=== PATIENT | female | born 1985 | race Two or more races ===

== ENCOUNTER 2016-12-31 12:43 | Inpatient (IN) | payer OTHER ==
[~2016-12-31] VITALS: Ht 175.3 cm; Wt 57.6 kg
--- NOTE | 2016-12-31 12:53 | NUR ---
PT REC'D TO ER VIA EMS PT HAD BEEN GETTING DIALYSIS BP 180/104 129 18 98 TEMP 99.3 TRACH TO NECK . AWAITING EVALUATION BY ER PROVIDER.
[2016-12-31 13:47] LABS: BASOPHILS # (AUTO) 0.1 /CMM (0.0-0.2); BASOPHILS % (AUTO) 0.3 % (0.0-2.0); EOSINOPHILS % (AUTO) 0.1 % (0.0-6.0); HEMATOCRIT 33 % (33-45); HEMOGLOBIN 10.7 g/dL (11.5-14.8); LYMPHOCYTES % (AUTO) 4.9 % (20.0-44.0); MEAN CORPUSCULAR HEMOGLOBIN 33 PG (26.0-33.0); MEAN CORPUSCULAR HGB CONC 33 g/dl (31.0-36.0); MEAN CORPUSCULAR VOLUME 101 fL (82-100); MONOCYTES # (AUTO) 1.1 /CMM (0.1-1.30); MONOCYTES % (AUTO) 5.4 % (2.0-12.0); NEUTROPHILS # (AUTO) 17.7 /CMM (1.8-8.9); NEUTROPHILS % (AUTO) 89.3 % (43.0-81.0); PLATELET COUNT (AUTO) 552 /CMM (150-450); RDW COEFFICIENT OF VARIATION 16.4 (11.5-15.0); RED BLOOD CELL COUNT(AUTO) 3.25 MIL/uL (4.0-5.2); WHITE BLOOD COUNT (AUTO) 19.9 K/uL (4.3-11.0)
--- NOTE | 2016-12-31 13:53 | NUR ---
CALLED NURSING SUP. FOR TELE BED
[2016-12-31 14:02] LABS: INR 0.97 (0.87-1.13); PROTHROMBIN TIME 10.4 SECS (9.5-12.7)
[2016-12-31] MEDS ORDERED: DOCU50LI GT (14:06)
[2016-12-31] MEDS ORDERED: CARV25TA2 GT (14:06)
[2016-12-31] MEDS ORDERED: MINO2.5T2 GT (14:06)
[2016-12-31] MEDS ORDERED: FOLI0.8T2 GT (14:06)
[2016-12-31] MEDS ORDERED: POLY17PO4 GT (14:06)
[2016-12-31] MEDS ORDERED: HEPA10009 SQ (14:06)
[2016-12-31] MEDS ORDERED: OMEP40CA37 GT (14:06)
[2016-12-31] MEDS ORDERED: CLON0.3P TD (14:06)
[2016-12-31] MEDS ORDERED: FERR300L GT (14:06)
[2016-12-31] MEDS ORDERED: INSU100I19 SQ (14:06)
[2016-12-31] MEDS ORDERED: ERGO50003 GT (14:06)
[2016-12-31] MEDS ORDERED: HYDR-3976 GT (14:06)
[2016-12-31] MEDS ORDERED: LOSA100T15 GT (14:06)
[2016-12-31] MEDS ORDERED: LIOT25TA9 GT (14:06)
[2016-12-31] MEDS ORDERED: CLON0.5T GT (14:06)
[2016-12-31] MEDS ORDERED: NIFE20CA GT (14:06)
[2016-12-31] MEDS ORDERED: HYDR100T27 GT (14:06)
[2016-12-31] MEDS ORDERED: CLON0.1T GT ×2 (14:06)
[2016-12-31] MEDS ORDERED: FOLI1TAB16 GT (14:06)
[2016-12-31] MEDS ORDERED: BLOO-668 IN (14:06)
[2016-12-31] MEDS ORDERED: ACET650S26 GT (14:06)
[2016-12-31 14:08] LABS: LACTIC ACID 0.7 mmol/L (0.4-2.0)
[2016-12-31] MEDS ORDERED: NUTR100037 GT (14:09)
--- NOTE | 2016-12-31 14:09 | NUR ---
LABS DRAWN SENT TO LAB IV [id number] WRIST ANS 18G RT WRIST TOLERATED WELL TRACH SUCTIONED 100SATS PT QUIET AND CALM VSS
[2016-12-31 14:14] LABS: BILIRUBIN,DIRECT 0.1 mg/dL (0.0-0.2); BILIRUBIN,TOTAL 0.5 mg/dL (0.2-1.0); CALCIUM, SERUM 12.5 mg/dL (8.5-10.1); CREATININE 4.5 mg/dL (0.6-1.3); POTASSIUM 4.1 mmol/L (3.5-5.1); TOTAL PROTEIN, SERUM 8.3 g/dL (6.4-8.2)
[2016-12-31] MEDS ORDERED: CLONIDINE HCL 0.1 MG TABLET GT ONE (14:30)
[2016-12-31] MEDS ORDERED: CLONIDINE HCL 0.1 MG TABLET ONE (14:48)
[2016-12-31 15:03] LABS: BAND % (MANUAL) 1 % (0.0-5.0); LYMPHOCYTES % (MANUAL) 4 % (16-48); MONOCYTES % (MANUAL) 10 % (0-11.0); NEUTROPHILS % (MANUAL) 84 (42-76); REACTIVE LYMPHOCYTES 1 % (0-0)
[2016-12-31 15:04] LABS: ANISOCYTOSIS 1+; PLATELET ESTIMATE INCRE
--- NOTE | 2016-12-31 15:09 | NUR ---
CALLED TUNG TO READ XRAY
[2016-12-31] MEDS ORDERED: VANCOMYCIN 1 GM in IV D5W 250 ML IV ONE (15:30)
[2016-12-31] MEDS ORDERED: AZITHROMYCIN 500 MG in IV D5W 250 ML IV ONE (15:30)
[2016-12-31] MEDS ORDERED: ACETAMINOPHEN ES 500 MG TABLET GT ONE (15:30)
[2016-12-31] MEDS ORDERED: CEFTRIAXONE 1GM BAG (ER ONLY) 50 ML IV ONE (15:30)
[2016-12-31] MEDS ORDERED: IV NS 0.9% 1,000 ML BAG IV ONE (15:30)
[2016-12-31] MEDS ORDERED: ACETAMINOPHEN ES 500 MG TABLET ONE (15:38)
[2016-12-31] MEDS ORDERED: IV NS 0.9% 1,000 ML ONE (15:39)
[2016-12-31] MEDS ORDERED: IV SET PRIMARY PUMP SET 1 EA INFUS.SET MC ONE ×2 (15:39→16:05)
[2016-12-31 15:47] LABS: APPEARANCE,URINE Turbid (CLEAR); BILIRUBIN,URINE Negative (NEGATIVE); BLOOD, URINE Small Ery/uL (NEGATIVE); COLOR,URINE Yellow (YELLOW); KETONES,URINE Negative (NEGATIVE); LEUKOCYTE ESTERASE ,URINE Large (NEGATIVE); NITRITE, URINE Negative (NEGATIVE); PH,URINE 5.5 (5.0-8.0); PROTEIN,URINE >=300 mg/dl (NEGATIVE); UGLUCOSE Negative (NEGATIVE); UROBILINOGEN,URINE 0.2 EU/dL (0.2)
--- NOTE | 2016-12-31 15:49 | NUR ---
IV ND SND ROCEPHIN I GR IVPB AND TYENOL 1000MG GT GIVEN PER MD ORDER
[2016-12-31 15:59] LABS: ADD URINE CULTURE YES; BACTERIA,URINE Moderate /HPF (None Seen); SQUAMOUS EPITHELIAL CELL,UR Moderate /HPF (None Seen); WBC,URINE TOO NUMEROUS TO COUN /HPF (0-3)
--- NOTE | 2016-12-31 16:23 | NUR ---
WENDY BERGMAN FOR TRANSFER IV MEDS TO THE FLOOR CALLED REOPRT TO MADELINE RN AND RT TO FOLLOW
[2016-12-31] MEDS ORDERED: MAGNESIUM HYDROXIDE 30 ML UDC PO PRN (16:30)
[2016-12-31] MEDS ORDERED: MAG HYDROX/AL HYDROX/SIMETH 30 ML UDC PO PRN (16:30)
[2016-12-31] MEDS ORDERED: ONDANSETRON HCL/PF 4 MG/2 ML VIAL IVP PRN (16:30)
[2016-12-31] MEDS ORDERED: ENOXAPARIN SODIUM 40 MG/0.4 ML DISP.SYRIN SQ SCH (16:30)
[2016-12-31] MEDS: CLONIDINE HCL 0.3 MG/24H PTWK 1 EA PATCH TD SCH (17:00)
--- NOTE | 2016-12-31 17:15 | NUR ---
MELVIN RN NOTE Admitted 31y/o F from ER, alert to self. With trache to O2 mask @ 4LPM, O2 sat 100%. With GT intact and patent. With 2RW PIVs intact. With RSC HD cath intact. Placed on bed on comfortable position. Skin assessment done, noted with sacral and both heels decub, taken pictures and attached to chart. Obtained order for wound care consult. SBP 140's at this time. Spoke with mother via phone and verified code status as Full code.
[2016-12-31 17:33] VITALS: BP 148/87
[2016-12-31] MEDS: DOCUSATE SODIUM LIQ 100 MG/10 ML UDC GT SCH (17:58)
[2016-12-31] MEDS: NIFEdipine (10MG) 10 MG CAPSULE GT SCH (17:58)
--- NOTE | 2016-12-31 17:59 | NUR ---
MELVIN RN NOTE Clonidine patch on her, dated for today.
[2016-12-31] MEDS ORDERED: Z GUARD REMEDY 2 OZ OINT TP PRN (19:00)
--- NOTE | 2016-12-31 19:51 | NUR ---
rn:td: pt received in bed resting comfortably. with trach mask in place. pending tf from pharmacy. aspiration/ fall precautions in place. will continue to monitor closely.
[2016-12-31 20:00] VITALS: BP 149/76
[2016-12-31] MEDS: RENAL NOVASOURCE 1,000 ML BOTTLE GT PRN (21:18)
[2016-12-31] MEDS: CARVEDILOL 12.5 MG TABLET GT SCH (21:18)
[2016-12-31] MEDS: CLONIDINE HCL 0.1 MG TABLET GT SCH (21:19)
[2016-12-31] MEDS: clonazePAM 0.5 MG TABLET GT SCH (21:19)
[2016-12-31] MEDS: hydrALAZINE HCL 50 MG TABLET GT SCH (21:19)
[2016-12-31] MEDS: LIOTHYRONINE SODIUM (25 MCG) 25 MCG TABLET GT SCH (21:19)
[2016-12-31] MEDS: HEPARIN SODIUM, PORCINE 5000 UNITS/1 ML VIAL SQ SCH (21:20)
[2016-12-31] MEDS: INSULIN DETEMIR 100 UNIT/ML CARTRIDGE SQ SCH (21:32)
--- NOTE | 2016-12-31 21:59 | NUR ---
rn:td: called md regarding bs 390 upon finger stick before giving Levemir. new orders to start accucheck q6h. orders carried out.
[2016-12-31] MEDS: INSULIN REGULAR, HUMAN 100 UNIT/ML 3 ML VIAL SQ PRN (23:09)
[2016-12-31] MEDS: BLOOD SUGAR DIAGNOSTIC 1 EACH STRIP IN SCH (23:09)
[2017-01-01] VITALS: BP 156/89
[2017-01-01 04:00] VITALS: BP 140/92
[2017-01-01] MEDS: hydrALAZINE HCL 50 MG TABLET GT SCH ×3 (05:35→20:30)
[2017-01-01] MEDS: HEPARIN SODIUM, PORCINE 5000 UNITS/1 ML VIAL SQ SCH ×3 (05:39→20:28)
[2017-01-01] MEDS: BLOOD SUGAR DIAGNOSTIC 1 EACH STRIP IN SCH ×3 (05:40→17:50)
[2017-01-01] MEDS: INSULIN REGULAR, HUMAN 100 UNIT/ML 3 ML VIAL SQ PRN ×2 (05:40→17:53)
[2017-01-01 08:00] VITALS: BP 160/90
--- NOTE | 2017-01-01 08:00 | NUR ---
MELVIN RN NOTE: RECEIVED PATIENT IN BED ALERT TO SELF ABLE TO NOD HEAD AND ANSWER QUESTIONS. NOTED WITH TRACH PORTEX 6 ON COOL AEROSOL 5L 28%. NO DISTRESS NOTED. SR ON MONITOR. SBP NOTED TO BE 160;S. PATIENT INCONTINENT NOTED WITH DIAPER. GTUBE PATENT AND INTACT ON NOVASOURCE AT 40ML/HR NO RESIDUAL NOTED. R SUBCLAVIAN HD CATH NOTED, PIV'S NOTED PATENT AND INTACT. AFEBRILE. NOTED WITH WOUNDS. PATIENT KEPT CLEAN AND DRY, TURNED AND REPOSITIONED AND EXTREMITIES OFFLOADED. SAFETY MAINTAINED. ONGOING MONITORING
[2017-01-01] MEDS: PANTOPRAZOLE 40 MG TABLET.DR PO SCH (08:30)
[2017-01-01] MEDS: LIOTHYRONINE SODIUM (25 MCG) 25 MCG TABLET GT SCH ×2 (08:31→20:28)
[2017-01-01] MEDS: FERROUS SULFATE UDC 300 MG/5 ML UDC GT SCH (08:31)
[2017-01-01] MEDS: DOCUSATE SODIUM LIQ 100 MG/10 ML UDC GT SCH ×2 (08:31→17:48)
[2017-01-01] MEDS: MINOXIDIL (2.5MG) 2.5 MG TABLET GT SCH (08:32)
[2017-01-01] MEDS: FOLIC ACID 1 MG TABLET GT SCH (08:32)
[2017-01-01] MEDS: CLONIDINE HCL 0.1 MG TABLET GT SCH ×2 (08:33→20:30)
[2017-01-01] MEDS: NIFEdipine (10MG) 10 MG CAPSULE GT SCH ×3 (08:33→17:00)
[2017-01-01] MEDS: LOSARTAN POTASSIUM 50 MG TABLET GT SCH (08:33)
[2017-01-01] MEDS: POLYETHYLENE GLYCOL 3350 17 GM POWD.PACK GT SCH (08:34)
[2017-01-01] MEDS: clonazePAM 0.5 MG TABLET GT SCH ×2 (08:34→20:27)
[2017-01-01] MEDS: VIT B CMPLX 3/FA/VIT C/BIOTIN 1 TAB TABLET GT SCH (08:34)
[2017-01-01] MEDS: CARVEDILOL 12.5 MG TABLET GT SCH ×2 (08:34→20:31)
[2017-01-01 08:40] LABS: BASOPHILS % (AUTO) 0.3 % (0.0-2.0); EOSINOPHILS # (AUTO) 0.6 /CMM (0.0-0.7); EOSINOPHILS % (AUTO) 4.5 % (0.0-6.0); HEMATOCRIT 28 % (33-45); HEMOGLOBIN 9.3 g/dL (11.5-14.8); LYMPHOCYTES # (AUTO) 1.4 /CMM (0.8-4.8); LYMPHOCYTES % (AUTO) 10.5 % (20.0-44.0); MEAN CORPUSCULAR HEMOGLOBIN 33 PG (26.0-33.0); MEAN CORPUSCULAR HGB CONC 33 g/dl (31.0-36.0); MEAN CORPUSCULAR VOLUME 100 fL (82-100); MONOCYTES # (AUTO) 1.2 /CMM (0.1-1.30); MONOCYTES % (AUTO) 8.4 % (2.0-12.0); NEUTROPHILS # (AUTO) 10.6 /CMM (1.8-8.9); NEUTROPHILS % (AUTO) 76.3 % (43.0-81.0); PLATELET COUNT (AUTO) 493 /CMM (150-450); RDW COEFFICIENT OF VARIATION 16.6 (11.5-15.0); RED BLOOD CELL COUNT(AUTO) 2.82 MIL/uL (4.0-5.2); WHITE BLOOD COUNT (AUTO) 13.9 K/uL (4.3-11.0)
[2017-01-01 09:10] LABS: ALBUMIN 2.4 g/dL (3.4-5.0); BILIRUBIN,TOTAL 0.3 mg/dL (0.2-1.0); CALCIUM, SERUM 11.5 mg/dL (8.5-10.1); CREATININE 4.4 mg/dL (0.6-1.3); MAGNESIUM 2.6 mg/dL (1.8-2.4); PHOSPHORUS 4.5 mg/dL (2.5-4.9); POTASSIUM 3.4 mmol/L (3.5-5.1); TOTAL PROTEIN, SERUM 7.2 g/dL (6.4-8.2)
--- NOTE | 2017-01-01 10:40 | NUR ---
MELVIN RN NOTE: HD STARTED. VS STABLE ONGOING MONITORING
[2017-01-01 12:00] VITALS: BP 116/73
[2017-01-01] MEDS: EPOETIN ALFA (10,000 UNIT) 10,000 UNIT/ML VIAL IV SCH (12:50)
[2017-01-01] MEDS: HYDROCODONE/APAP 5/325MG 1 EACH TABLET PO PRN (12:50)
--- NOTE | 2017-01-01 13:37 | NUR ---
RT NOTES PT GOT SUCTIONED AND INNER CANULA CHANGED. PT HAD THICK MODERATE YELLOW SECRETION. NO RESPIRATORY DISTRESS WAS NOTED. PT WAS ON DIALYSIS.
--- NOTE | 2017-01-01 14:00 | NUR ---
MELVIN RN NOTE: HD COMPLETE 2700ML NOTED OUT, VS STABLE BP 108/60, HR 86 TEMP 97.5 NO DISTRESS NOTED. PATIENT TOLERATED HD WELL.
--- NOTE | 2017-01-01 14:30 | NUR ---
MELVIN RN NOTE: RECEIVE CRITICAL LAB OF MRSA +, ELY GUERRERO MADE AWARE. PATIENT PLACED ON ISOLATION FOR MRSA NARES. ONGOING MONITORING
[2017-01-01] MEDS ORDERED: IV NS 0.9% 250 ML IV ONE (15:34)
[2017-01-01] MEDS ORDERED: IV SET PRIMARY PUMP SET 1 EA INFUS.SET MC ONE (15:34)
[2017-01-01] MEDS: CEFTRIAXONE 1 G in IV D5W 50 ML IV SCH (15:34)
[2017-01-01] MEDS ORDERED: SECONDARY IV SET 1 EA INFUS.SET MC ONE (15:34)
[2017-01-01] MEDS: Z GUARD REMEDY 2 OZ OINT TP PRN (15:34)
[2017-01-01 16:00] VITALS: BP 129/71
[2017-01-01] MEDS: MORPHINE SULFATE INJ 2 MG/ML DISP.SYRIN IV PRN (17:50)
--- NOTE | 2017-01-01 18:53 | NUR ---
MELVIN RN NOTE: PATIENT KEPT CLEAN AND DRY. TURNED AND REPOSITIONED AND EXTREMITIES OFFLOADED. ALL CARE RENDERED. VSS, PAIN MANAGEMENT PROVIDED. WILL ENDORSE FOR CONTINUITY OF CARE.
[2017-01-01 20:00] VITALS: BP 124/67
[2017-01-01] MEDS: MUPIROCIN OINT 2% 22 GM TUBE SCH (20:26)
[2017-01-01] MEDS: INSULIN DETEMIR 100 UNIT/ML CARTRIDGE SQ SCH (22:57)
[2017-01-02] VITALS: BP 136/77
[2017-01-02] MEDS: BLOOD SUGAR DIAGNOSTIC 1 EACH STRIP IN SCH ×5 (00:29→23:28)
[2017-01-02] MEDS: INSULIN REGULAR, HUMAN 100 UNIT/ML 3 ML VIAL SQ PRN ×4 (00:31→23:23)
[2017-01-02 04:00] VITALS: BP 135/74
[2017-01-02] MEDS: HEPARIN SODIUM, PORCINE 5000 UNITS/1 ML VIAL SQ SCH ×3 (04:38→21:17)
[2017-01-02] MEDS: hydrALAZINE HCL 50 MG TABLET GT SCH ×3 (05:56→21:16)
[2017-01-02] MEDS: MORPHINE SULFATE INJ 2 MG/ML DISP.SYRIN IV PRN ×3 (06:34→23:28)
[2017-01-02] MEDS: RENAL NOVASOURCE 1,000 ML BOTTLE GT PRN (06:37)
[2017-01-02] MEDS: DEXTROSE 50%-WATER 50 ML DISP.SYRIN IV PRN (06:46)
[2017-01-02 08:00] VITALS: BP 149/92
[2017-01-02] MEDS: POLYETHYLENE GLYCOL 3350 17 GM POWD.PACK GT SCH (08:24)
[2017-01-02] MEDS: FERROUS SULFATE UDC 300 MG/5 ML UDC GT SCH (08:24)
[2017-01-02] MEDS: MUPIROCIN OINT 2% 22 GM TUBE SCH ×2 (08:24→21:16)
[2017-01-02] MEDS: Z GUARD REMEDY 2 OZ OINT TP PRN (08:24)
[2017-01-02] MEDS: DOCUSATE SODIUM LIQ 100 MG/10 ML UDC GT SCH ×2 (08:24→17:40)
[2017-01-02] MEDS: LOSARTAN POTASSIUM 50 MG TABLET GT SCH (08:25)
[2017-01-02] MEDS: MINOXIDIL (2.5MG) 2.5 MG TABLET GT SCH (08:26)
[2017-01-02] MEDS: CLONIDINE HCL 0.1 MG TABLET GT SCH ×2 (08:26→21:15)
[2017-01-02] MEDS: PANTOPRAZOLE 40 MG TABLET.DR PO SCH (08:26)
[2017-01-02] MEDS: clonazePAM 0.5 MG TABLET GT SCH ×2 (08:27→21:14)
[2017-01-02] MEDS: VIT B CMPLX 3/FA/VIT C/BIOTIN 1 TAB TABLET GT SCH (08:27)
[2017-01-02] MEDS: NIFEdipine (10MG) 10 MG CAPSULE GT SCH ×3 (08:27→17:40)
[2017-01-02] MEDS: FOLIC ACID 1 MG TABLET GT SCH (08:27)
[2017-01-02] MEDS: LIOTHYRONINE SODIUM (25 MCG) 25 MCG TABLET GT SCH ×2 (08:27→21:15)
[2017-01-02] MEDS: CARVEDILOL 12.5 MG TABLET GT SCH ×2 (08:27→21:15)
--- NOTE | 2017-01-02 11:10 | NUR ---
WOUND CARE CONSULT: PT PRESENTS WITH MULTIPLE WOUNDS, PRESENT ON ADMISSION INCLUDING STAGE II ULCER TO SACRUM AND TO LEFT HEEL, RT HEEL INTACT DTI NOTED WITH CALLUS. PT ON OLMAN ISOFLEX LOW AIRLOSS BED. ALL SKIN AND WOUND RECOMMENDATIONS DISCUSSED WITH NURSING STAFF. IN AGREEMENT WITH PLAN OF CARE. Addendum: 01/02/17 at 1112 by TATE SMITH WNDNU Amended: Links added.
[2017-01-02 12:00] VITALS: BP 124/72
[2017-01-02 13:18] LABS: BASOPHILS % (AUTO) 0.4 % (0.0-2.0); EOSINOPHILS # (AUTO) 0.5 /CMM (0.0-0.7); EOSINOPHILS % (AUTO) 4.7 % (0.0-6.0); HEMATOCRIT 29 % (33-45); HEMOGLOBIN 9.6 g/dL (11.5-14.8); LYMPHOCYTES # (AUTO) 1.3 /CMM (0.8-4.8); LYMPHOCYTES % (AUTO) 12.3 % (20.0-44.0); MEAN CORPUSCULAR HEMOGLOBIN 32 PG (26.0-33.0); MEAN CORPUSCULAR HGB CONC 33 g/dl (31.0-36.0); MEAN CORPUSCULAR VOLUME 97 fL (82-100); MONOCYTES # (AUTO) 0.5 /CMM (0.1-1.30); MONOCYTES % (AUTO) 5.3 % (2.0-12.0); NEUTROPHILS # (AUTO) 8.1 /CMM (1.8-8.9); NEUTROPHILS % (AUTO) 77.3 % (43.0-81.0); PLATELET COUNT (AUTO) 447 /CMM (150-450); RDW COEFFICIENT OF VARIATION 16.9 (11.5-15.0); RED BLOOD CELL COUNT(AUTO) 2.96 MIL/uL (4.0-5.2); WHITE BLOOD COUNT (AUTO) 10.4 K/uL (4.3-11.0)
[2017-01-02 14:44] LABS: CALCIUM, SERUM 11.4 mg/dL (8.5-10.1); CREATININE 3.6 mg/dL (0.6-1.3); MAGNESIUM 2.4 mg/dL (1.8-2.4); PHOSPHORUS 4.6 mg/dL (2.5-4.9); POTASSIUM 4.2 mmol/L (3.5-5.1)
[2017-01-02] MEDS: EPOETIN ALFA (10,000 UNIT) 10,000 UNIT/ML VIAL IV SCH (15:32)
[2017-01-02] MEDS: CEFTRIAXONE 1 G in IV D5W 50 ML IV SCH (15:32)
[2017-01-02 16:00] VITALS: BP 144/90
[2017-01-02 20:00] VITALS: BP 149/89
--- NOTE | 2017-01-02 20:44 | NUR ---
received pt from day shift, alert, follows commands, SR, on T tube, fio2 28%, sat well, lungs partially congested, no edema, GT to feeding tolerates well, HD pt anuric, v/s stable, no pain, pt turned and repositioned.
[2017-01-02] MEDS: INSULIN DETEMIR 100 UNIT/ML CARTRIDGE SQ SCH (21:35)
[2017-01-03] VITALS: BP 152/85
[2017-01-03 04:00] VITALS: BP 148/94
--- NOTE | 2017-01-03 04:18 | NUR ---
pt is resting in the bed, no acute distress overnight, v/s stable, no pain, pt cleaned, changed and repositioned q2hrs.
[2017-01-03] MEDS: hydrALAZINE HCL 50 MG TABLET GT SCH ×3 (05:06→20:27)
[2017-01-03] MEDS: HEPARIN SODIUM, PORCINE 5000 UNITS/1 ML VIAL SQ SCH ×3 (05:07→20:30)
[2017-01-03] MEDS ORDERED: IV NS 0.9% 250 ML IV ONE (05:15)
[2017-01-03] MEDS: DEXTROSE 50%-WATER 50 ML DISP.SYRIN IV PRN (05:18)
[2017-01-03] MEDS: BLOOD SUGAR DIAGNOSTIC 1 EACH STRIP IN SCH ×3 (05:19→18:06)
--- NOTE | 2017-01-03 05:25 | NUR ---
BS 39 D50 given
--- NOTE | 2017-01-03 06:00 | NUR ---
BS recheck 104
[2017-01-03] MEDS: MORPHINE SULFATE INJ 2 MG/ML DISP.SYRIN IV PRN ×3 (06:07→19:47)
[2017-01-03 07:18] LABS: BASOPHILS % (AUTO) 0.4 % (0.0-2.0); EOSINOPHILS # (AUTO) 0.6 /CMM (0.0-0.7); EOSINOPHILS % (AUTO) 5.9 % (0.0-6.0); HEMATOCRIT 30 % (33-45); HEMOGLOBIN 9.7 g/dL (11.5-14.8); LYMPHOCYTES # (AUTO) 1.3 /CMM (0.8-4.8); MEAN CORPUSCULAR HEMOGLOBIN 33 PG (26.0-33.0); MEAN CORPUSCULAR HGB CONC 33 g/dl (31.0-36.0); MEAN CORPUSCULAR VOLUME 100 fL (82-100); MONOCYTES % (AUTO) 10.2 % (2.0-12.0); NEUTROPHILS # (AUTO) 6.7 /CMM (1.8-8.9); NEUTROPHILS % (AUTO) 69.5 % (43.0-81.0); PLATELET COUNT (AUTO) 490 /CMM (150-450); RDW COEFFICIENT OF VARIATION 15.6 (11.5-15.0); RED BLOOD CELL COUNT(AUTO) 2.95 MIL/uL (4.0-5.2); WHITE BLOOD COUNT (AUTO) 9.6 K/uL (4.3-11.0)
[2017-01-03 07:45] LABS: ALBUMIN 2.5 g/dL (3.4-5.0); BILIRUBIN,TOTAL 0.4 mg/dL (0.2-1.0); CALCIUM, SERUM 11.5 mg/dL (8.5-10.1); CREATININE 3.9 mg/dL (0.6-1.3); MAGNESIUM 2.5 mg/dL (1.8-2.4); PHOSPHORUS 4.6 mg/dL (2.5-4.9); POTASSIUM 3.4 mmol/L (3.5-5.1); TOTAL PROTEIN, SERUM 7.4 g/dL (6.4-8.2)
[2017-01-03 08:00] VITALS: BP 153/93
[2017-01-03] MEDS: DOCUSATE SODIUM LIQ 100 MG/10 ML UDC GT SCH ×2 (08:45→16:09)
[2017-01-03] MEDS: POLYETHYLENE GLYCOL 3350 17 GM POWD.PACK GT SCH (08:45)
[2017-01-03] MEDS: VIT B CMPLX 3/FA/VIT C/BIOTIN 1 TAB TABLET GT SCH (08:45)
[2017-01-03] MEDS: PANTOPRAZOLE 40 MG TABLET.DR PO SCH (08:45)
[2017-01-03] MEDS: FOLIC ACID 1 MG TABLET GT SCH (08:45)
[2017-01-03] MEDS: FERROUS SULFATE UDC 300 MG/5 ML UDC GT SCH (08:45)
[2017-01-03] MEDS: clonazePAM 0.5 MG TABLET GT SCH ×2 (08:46→20:27)
[2017-01-03] MEDS: MUPIROCIN OINT 2% 22 GM TUBE SCH ×2 (08:46→20:28)
[2017-01-03] MEDS: LIOTHYRONINE SODIUM (25 MCG) 25 MCG TABLET GT SCH ×2 (08:46→20:27)
[2017-01-03] MEDS: CLONIDINE HCL 0.1 MG TABLET GT SCH ×2 (09:00→20:27)
[2017-01-03] MEDS: LOSARTAN POTASSIUM 50 MG TABLET GT SCH (09:00)
[2017-01-03] MEDS: NIFEdipine (10MG) 10 MG CAPSULE GT SCH ×3 (09:00→16:10)
[2017-01-03] MEDS: CARVEDILOL 12.5 MG TABLET GT SCH ×2 (09:00→20:27)
[2017-01-03] MEDS: MINOXIDIL (2.5MG) 2.5 MG TABLET GT SCH (09:00)
--- NOTE | 2017-01-03 09:08 | NUR ---
non-admin BP medication d/t hemodialysis at this time.
[2017-01-03] MEDS: EPOETIN ALFA (10,000 UNIT) 10,000 UNIT/ML VIAL IV SCH (10:21)
[2017-01-03 12:00] VITALS: BP 123/79
[2017-01-03] MEDS: CEFTRIAXONE 1 G in IV D5W 50 ML IV SCH (15:47)
[2017-01-03 16:00] VITALS: BP 139/89
[2017-01-03] MEDS: ACETAMINOPHEN 325 MG TABLET PO PRN (16:11)
[2017-01-03] MEDS: INSULIN REGULAR, HUMAN 100 UNIT/ML 3 ML VIAL SQ PRN (18:09)
--- NOTE | 2017-01-03 19:28 | NUR ---
closing note patient remained stable this shift. breathing, vs and LOC at baseline and stable. episodes of agitation- consolable, pain medication effective. repositioned patient and provided prn ADL care. no injury. no new skin breakdown compared to photos in chart. tracheostomy patent, suctioned prn, wound care rendered. sly midline patent, dressing cdi. isolation precautions observed. discussed plan of care. call light in reach.
--- NOTE | 2017-01-03 19:30 | NUR ---
MELVIN RN INITIAL NOTE RECEIVED REPORT FROM DANNIE FLOR. PT IN BED. A/A/O X2. PT IS SCREAMING, MOUTHS SHE IS IN PAIN. WILL MEDICATE FOR PAIN. LUNG SOUNDS MINIMAL RHONCHI. TRACH PRESENT, COOL AEROSOL. BOWEL SOUNDS PRESENT WITH GT INTACT. FEEDING RUNNING, 5 CC RESIDUAL. PULSES PRESENT IN ALL EXTREMITIES. IV PATENT AND INTACT. DIALYSIS ACCESS PATENT AND INTACT. BED IN LOW LOCKED POSITION. CALL LIGHT WITHIN REACH. WILL CONTINUE TO MONITOR.
[2017-01-03 20:00] VITALS: BP 163/106
[2017-01-03] MEDS: INSULIN DETEMIR 100 UNIT/ML CARTRIDGE SQ SCH (21:40)
[2017-01-03] MEDS: HYDROCODONE/APAP 5/325MG 1 EACH TABLET PO PRN (22:57)
[2017-01-04] VITALS: BP 153/91
[2017-01-04] MEDS: BLOOD SUGAR DIAGNOSTIC 1 EACH STRIP IN SCH ×5 (00:03→23:29)
[2017-01-04] MEDS: INSULIN REGULAR, HUMAN 100 UNIT/ML 3 ML VIAL SQ PRN ×5 (00:04→23:32)
[2017-01-04] MEDS: MORPHINE SULFATE INJ 2 MG/ML DISP.SYRIN IV PRN ×3 (01:04→16:56)
[2017-01-04 04:00] VITALS: BP 134/86
[2017-01-04] MEDS ORDERED: IV NS 0.9% 250 ML IV ONE (05:25)
[2017-01-04] MEDS: hydrALAZINE HCL 50 MG TABLET GT SCH ×3 (05:29→21:34)
[2017-01-04] MEDS: HEPARIN SODIUM, PORCINE 5000 UNITS/1 ML VIAL SQ SCH ×3 (05:30→21:37)
--- NOTE | 2017-01-04 06:10 | NUR ---
MELVIN RN PT WAS SCREAMING, NO CHANGES THROUGHOUT THE SHIFT. WALKED INTO PTS ROOM AND PT HAD DECANNULATED SELF. MICHELLE RN PLACED THE OBTURATOR. RT CALLED. PT SATING 98% ON RA. WILL CONTINUE TO MONITOR PT.
[2017-01-04] MEDS: HYDROCODONE/APAP 5/325MG 1 EACH TABLET PO PRN ×2 (06:40→21:33)
--- NOTE | 2017-01-04 06:50 | NUR ---
RN NOTES: PATIENT TRIED TO PULL OUT TRACH PER REPORT OF PRIMARY RN DEVAN. OBTAINED ORDERS FOR BILATERAL SOFT WRIST RESTRAINTS. TO CONTINUOUSLY MONITORED PT.
--- NOTE | 2017-01-04 07:15 | NUR ---
RN INITIAL NOTE PT RECEIVED IN BED, RESTING COMFORTABLY. AWAKE, ALERT, MOUTHS WORDS. SINUS RHYTHM ON TELE MONITOR. RESPIRATIONS EVEN AND UNLABORED. PT IS ON COOL AEROSOL T-PIECE. SATING WELL. NO S/S OF RESPIRATORY DISTRESS OR SOB. SKIN IS WARM AND DRY TO TOUCH. RIGHT UPPER MIDLINE IV SITE FLUSHED, PATENT. DRESSING C/D/I. GTUBE PATENT. NOVASOURCE RUNNING AT 40ML/HR. PT TOLERATING FEEDING WELL. SAFETY PRECAUTIONS IMPLEMENTED. BED IN LOCKED, LOW POSITION WITH TWO SIDE RAILS UP. CALL LIGHT WITHIN REACH. WILL MONITOR FREQUENTLY.
[2017-01-04 07:49] LABS: CALCIUM, SERUM 11.5 mg/dL (8.5-10.1); CREATININE 3.2 mg/dL (0.6-1.3); MAGNESIUM 2.6 mg/dL (1.8-2.4); POTASSIUM 3.6 mmol/L (3.5-5.1)
[2017-01-04 07:54] LABS: BASOPHILS % (AUTO) 0.3 % (0.0-2.0); EOSINOPHILS # (AUTO) 0.7 /CMM (0.0-0.7); EOSINOPHILS % (AUTO) 7.5 % (0.0-6.0); HEMATOCRIT 31 % (33-45); HEMOGLOBIN 10.1 g/dL (11.5-14.8); LYMPHOCYTES # (AUTO) 1.8 /CMM (0.8-4.8); LYMPHOCYTES % (AUTO) 19.7 % (20.0-44.0); MEAN CORPUSCULAR HEMOGLOBIN 33 PG (26.0-33.0); MEAN CORPUSCULAR HGB CONC 33 g/dl (31.0-36.0); MEAN CORPUSCULAR VOLUME 100 fL (82-100); MONOCYTES # (AUTO) 1.1 /CMM (0.1-1.30); MONOCYTES % (AUTO) 12.4 % (2.0-12.0); NEUTROPHILS # (AUTO) 5.5 /CMM (1.8-8.9); NEUTROPHILS % (AUTO) 60.1 % (43.0-81.0); PLATELET COUNT (AUTO) 522 /CMM (150-450); RDW COEFFICIENT OF VARIATION 15.7 (11.5-15.0); WHITE BLOOD COUNT (AUTO) 9.2 K/uL (4.3-11.0)
[2017-01-04 08:00] VITALS: BP 158/98
[2017-01-04] MEDS: DOCUSATE SODIUM LIQ 100 MG/10 ML UDC GT SCH ×2 (08:40→16:56)
[2017-01-04] MEDS: MINOXIDIL (2.5MG) 2.5 MG TABLET GT SCH (08:41)
[2017-01-04] MEDS: PANTOPRAZOLE 40 MG TABLET.DR PO SCH (08:41)
[2017-01-04] MEDS: VIT B CMPLX 3/FA/VIT C/BIOTIN 1 TAB TABLET GT SCH (08:41)
[2017-01-04] MEDS: FOLIC ACID 1 MG TABLET GT SCH (08:41)
[2017-01-04] MEDS: LIOTHYRONINE SODIUM (25 MCG) 25 MCG TABLET GT SCH ×2 (08:41→21:33)
[2017-01-04] MEDS: POLYETHYLENE GLYCOL 3350 17 GM POWD.PACK GT SCH (08:41)
[2017-01-04] MEDS: FERROUS SULFATE UDC 300 MG/5 ML UDC GT SCH (08:41)
[2017-01-04] MEDS: clonazePAM 0.5 MG TABLET GT SCH ×2 (08:42→21:33)
[2017-01-04] MEDS: CLONIDINE HCL 0.1 MG TABLET GT SCH ×2 (08:42→21:34)
[2017-01-04] MEDS: LOSARTAN POTASSIUM 50 MG TABLET GT SCH (08:42)
[2017-01-04] MEDS: CARVEDILOL 12.5 MG TABLET GT SCH ×2 (08:42→21:34)
[2017-01-04] MEDS: NIFEdipine (10MG) 10 MG CAPSULE GT SCH ×3 (08:52→16:57)
[2017-01-04] MEDS: MUPIROCIN OINT 2% 22 GM TUBE SCH ×2 (08:53→21:36)
[2017-01-04] MEDS ORDERED: ERGOCALCIFEROL (VITAMIN D 2) 50,000 UNIT CAPSULE GT SCH (09:00)
[2017-01-04 12:00] VITALS: BP 137/89
[2017-01-04] MEDS: CEFTRIAXONE 1 G in IV D5W 50 ML IV SCH (15:01)
[2017-01-04] MEDS: RENAL NOVASOURCE 1,000 ML BOTTLE GT PRN (15:25)
[2017-01-04 16:00] VITALS: BP 139/85
[2017-01-04] MEDS: ACETAMINOPHEN 325 MG TABLET PO PRN (16:57)
--- NOTE | 2017-01-04 19:04 | NUR ---
RN CLOSING NOTE PT RESTING IN BED COMFORTABLY. ALL MD ORDERS CARRIED OUT. SAFETY MEASURES IMPLEMENTED AT ALL TIMES. REPORT WILL BE GIVEN TO PM RN FOR CASSI.
[2017-01-04 20:00] VITALS: BP 155/118
[2017-01-04] MEDS: INSULIN DETEMIR 100 UNIT/ML CARTRIDGE SQ SCH (21:48)
[2017-01-04] MEDS: ZOLPIDEM TARTRATE 5 MG TABLET PO PRN (23:23)
[2017-01-05] VITALS (8 sets, daily range): BP systolic 128–168; BP diastolic 79–109
[2017-01-05] MEDS: CLONIDINE HCL 0.1 MG TABLET GT PRN ×2 (01:02→18:37)
[2017-01-05] MEDS: HYDROCODONE/APAP 5/325MG 1 EACH TABLET PO PRN (04:33)
[2017-01-05] MEDS: hydrALAZINE HCL 50 MG TABLET GT SCH ×3 (04:37→21:41)
[2017-01-05] MEDS: HEPARIN SODIUM, PORCINE 5000 UNITS/1 ML VIAL SQ SCH ×3 (04:38→21:44)
--- NOTE | 2017-01-05 05:38 | NUR ---
PT ALERT,nods head in responding a yes or no answer when ask if in pain.pt been crying most of the night due to pain and wanting to have the hand released from restraint.medicated with norco but not well relieved ,mother called already not to give morphine due to allergic reaction like having her mouth swell. mother unable to come to attend and comfort patient due to transportation issue, attempt to release the hand restraint and pt tends to scratch the head ,nose and trache ties. pt already pulled out tube yesterday. the reason why pt has to keep her restraint.per mother the morphine will make her unable to breathe thats the reason she thinks her daughter try to pull out tube.will continue to comfort patient, monitor closely, kept restraint intact at all times, release only with supervision.this morning pt appears tired and fallen asleep. kept clean and dry, vss,afebrile.
[2017-01-05 06:13] LABS: CALCIUM, SERUM 11.6 mg/dL (8.5-10.1); CREATININE 3.1 mg/dL (0.6-1.3); MAGNESIUM 2.7 mg/dL (1.8-2.4); PHOSPHORUS 3.5 mg/dL (2.5-4.9); POTASSIUM 3.3 mmol/L (3.5-5.1)
[2017-01-05 06:14] LABS: BASOPHILS % (AUTO) 0.4 % (0.0-2.0); EOSINOPHILS % (AUTO) 9.4 % (0.0-6.0); HEMATOCRIT 32 % (33-45); HEMOGLOBIN 10.4 g/dL (11.5-14.8); LYMPHOCYTES # (AUTO) 2.4 /CMM (0.8-4.8); LYMPHOCYTES % (AUTO) 22.2 % (20.0-44.0); MEAN CORPUSCULAR HEMOGLOBIN 33 PG (26.0-33.0); MEAN CORPUSCULAR HGB CONC 32 g/dl (31.0-36.0); MEAN CORPUSCULAR VOLUME 101 fL (82-100); MONOCYTES # (AUTO) 1.1 /CMM (0.1-1.30); MONOCYTES % (AUTO) 10.2 % (2.0-12.0); NEUTROPHILS # (AUTO) 6.3 /CMM (1.8-8.9); NEUTROPHILS % (AUTO) 57.8 % (43.0-81.0); PLATELET COUNT (AUTO) 570 /CMM (150-450); RDW COEFFICIENT OF VARIATION 15.4 (11.5-15.0); RED BLOOD CELL COUNT(AUTO) 3.19 MIL/uL (4.0-5.2); WHITE BLOOD COUNT (AUTO) 10.9 K/uL (4.3-11.0)
[2017-01-05] MEDS: BLOOD SUGAR DIAGNOSTIC 1 EACH STRIP IN SCH ×3 (06:39→18:36)
[2017-01-05] MEDS: DEXTROSE 50%-WATER 50 ML DISP.SYRIN IV PRN (06:41)
[2017-01-05] MEDS: RENAL NOVASOURCE 1,000 ML BOTTLE GT PRN (06:41)
--- NOTE | 2017-01-05 07:03 | NUR ---
fingerstick 52mg/dl given D50% and recheck is 184mg/dl,no significant changes overnight
--- NOTE | 2017-01-05 07:30 | NUR ---
initial note patient in bed, agitated with restraints, moaning. a+ox1, follows simple commands. provided nursing comfort measures, not effective. suctioned patient, noted small thick white secretions. O2 sat 99% with cool aerosol. tele monitor reading SR 80's. sly midline patent, dressing cdi. isolation for mrsa nares. noted allergies documented. repositioner patient, discussed plan of care. call light in reach.
[2017-01-05] MEDS ORDERED: clonazePAM 0.5 MG TABLET GT SCH (09:00)
[2017-01-05] MEDS ORDERED: MORPHINE SULFATE INJ 2 MG/ML DISP.SYRIN IV PRN (09:00)
--- NOTE | 2017-01-05 09:00 | NUR ---
GT RESIDUAL 200ML AT THIS TIME- FEEDING HELD
--- NOTE | 2017-01-05 09:33 | NUR ---
left message for Brittany, patient's mother regarding confirmation of allergies. pending response.
[2017-01-05] MEDS: FERROUS SULFATE UDC 300 MG/5 ML UDC GT SCH (09:51)
[2017-01-05] MEDS: LIOTHYRONINE SODIUM (25 MCG) 25 MCG TABLET GT SCH ×2 (09:51→21:42)
[2017-01-05] MEDS: DOCUSATE SODIUM LIQ 100 MG/10 ML UDC GT SCH ×2 (09:51→18:36)
[2017-01-05] MEDS: POLYETHYLENE GLYCOL 3350 17 GM POWD.PACK GT SCH (09:51)
[2017-01-05] MEDS: CLONIDINE HCL 0.1 MG TABLET GT SCH ×2 (09:52→21:42)
[2017-01-05] MEDS: CARVEDILOL 12.5 MG TABLET GT SCH ×2 (09:52→21:42)
[2017-01-05] MEDS: MINOXIDIL (2.5MG) 2.5 MG TABLET GT SCH (09:52)
[2017-01-05] MEDS: VIT B CMPLX 3/FA/VIT C/BIOTIN 1 TAB TABLET GT SCH (09:53)
[2017-01-05] MEDS: MUPIROCIN OINT 2% 22 GM TUBE SCH ×2 (09:54→21:43)
[2017-01-05] MEDS: FOLIC ACID 1 MG TABLET GT SCH (09:54)
[2017-01-05] MEDS: PANTOPRAZOLE 40 MG TABLET.DR PO SCH (09:54)
[2017-01-05] MEDS: NIFEdipine (10MG) 10 MG CAPSULE GT SCH ×3 (09:54→18:37)
[2017-01-05] MEDS: LOSARTAN POTASSIUM 50 MG TABLET GT SCH (09:55)
[2017-01-05] MEDS ORDERED: PAMIDRONATE 30 MG in IV NS 0.9% 500 ML IV ONE (11:30)
--- NOTE | 2017-01-05 13:00 | NUR ---
GT RESIDUAL 200ML AGAIN AFTER FEEDING HAS BEEN OFF SINCE 0900, RESIDUAL COLOR OF FEEDING/ WATER/ GREENISH. INFORMED TIERRA RYAN. HE SAID HOLD FEEDING UNTIL 1600 AND CHECK AGAIN.
--- NOTE | 2017-01-05 13:18 | NUR ---
SPOKE TO PATIENT'S MOTHER WITH CONFIRMATION OF MORPHINE, ATIVAN AND GABAPENTIN ALLERGIES. INFORMED TIERRA RYAN WITH T.O. TO D/C MORPHINE. PATIENTS MOTHER REQUESTED SWALLOW Avelina LAZCANO SAID OK. RLE PAIN R/O DVT ORDER FOR VENOUS DOPPLER.
[2017-01-05] MEDS ORDERED: IV SET PRIMARY PUMP SET 1 EA INFUS.SET MC ONE (13:30)
[2017-01-05] MEDS ORDERED: SECONDARY IV SET 1 EA INFUS.SET MC ONE (13:30)
--- NOTE | 2017-01-05 15:41 | NUR ---
CEFTRIAXONE AND PAMIDRONATE DEEMED COMPATIBLE AT IV Y SITE ON [facility].
[2017-01-05] MEDS: CEFTRIAXONE 1 G in IV D5W 50 ML IV SCH (15:46)
--- NOTE | 2017-01-05 16:11 | NUR ---
250 ML GT RESIDUAL AT THIS TIME, NO FEEDING SINCE THIS AM, INFORMED TIERRA RYAN WITH T.O. FOR ABD XRAY STAT, AFTER RESULTS START REGLAN 10MG IV BID.
[2017-01-05] MEDS ORDERED: BISACODYL SUPP (10 MG) 10 MG/SUPP.RECT SUPP.RECT RC ONE (18:30)
[2017-01-05] MEDS: PREGABALIN 25 MG CAPSULE PO SCH (18:36)
[2017-01-05] MEDS: METOCLOPRAMIDE HCL 10 MG/2 ML VIAL IV SCH (18:37)
--- NOTE | 2017-01-05 19:30 | NUR ---
SHUTTLE INSPECTOR INITIAL NOTE RECEIVED REPORT FROM DANNIE FLOR. PATIENT CURRENTLY IN BED. A/O X2, SLEEPING AT THIS TIME, EASILY AROUSABLE TO NAME AND TOUCH. LUNG SOUNDS MINIMAL RHONCHI. TRACH PRESENT, COOL AEROSOL PRESCRIBED, TOLERATING WELL. BOWEL SOUNDS PRESENT WITH GT INTACT. GT CLAMPED AT THIS TIME, 150 CC OF GREEN COLORED GASTRIC RESIDUALS NOTED AT THIS TIME, WILL CONTINUE TO HOLD AND RECHECK AGAIN AT 10PM INSTRUCTED BY MD. PULSES PRESENT IN ALL EXTREMITIES. IV PATENT AND INTACT. DIALYSIS ACCESS PATENT AND INTACT, DRESSING CLEAN AND DRY. BED IN LOWEST AND LOCKED POSITION. CALL LIGHT WITHIN REACH. WILL CONTINUE TO MONITOR.
--- NOTE | 2017-01-05 19:59 | NUR ---
CLOSING NOTE BREATHING AND LOC STABLE. RECHECKED GT RESIDUALS DURING CHANGE OF SHIFT AND NOTED NO RESIDUALS, OK TO RESUME FEEDING AT 1/2 RATE PER NURSING PROGRAM MANAGER TIERRA. NURSING PROGRAM MANAGER SAID RECHECK AT 10PM AND CONTINUE FEEDING AT 1/2 RATE IF <100ML, IF GREATER THAN HOLD AND NOTIFY MD. NO ADVERSE REACTION FROM MEDICATION NOTED THIS SHIFT. NO BLEEDING NO NEW WOUNDS. PATIENT SLEPT ADEQUATELY, EASILY AROUSABLE, AGITATED WHEN AWAKE. REPOSITIONED Q2H AND PROVIDED WOUND CARE. OFF LOADED HEELS AND ELBOWS. SPOKE TO PATIENT'S MOTHER ELIJAH AT LENGTH ABOUT PLAN OF CARE. MOTHER VERBALIZED UNDERSTANDING. ENDORSED TO NIGHT NURSE TO CONT' MONITORING GI FUNCTION. ACUTE MEDICAL RESTRAINTS STILL NECESSARY FOR PATIENT'S SAFETY. CALL LIGHT PLACED IN REACH.
[2017-01-05] MEDS: INSULIN DETEMIR 100 UNIT/ML CARTRIDGE SQ SCH (21:57)
--- NOTE | 2017-01-05 22:00 | NUR ---
RN NOTES GASTRIC RESIDUALS 70CC AT THIS TIME. WILL RESUME TUBE FEEDINGS AND CLOSELY MONITOR
[2017-01-06] VITALS: BP 146/92
[2017-01-06] MEDS: INSULIN REGULAR, HUMAN 100 UNIT/ML 3 ML VIAL SQ PRN ×3 (00:29→17:35)
[2017-01-06] MEDS: BLOOD SUGAR DIAGNOSTIC 1 EACH STRIP IN SCH ×5 (00:33→23:04)
[2017-01-06 04:00] VITALS: BP 158/91
[2017-01-06] MEDS: hydrALAZINE HCL 50 MG TABLET GT SCH ×3 (05:23→21:14)
[2017-01-06] MEDS: HEPARIN SODIUM, PORCINE 5000 UNITS/1 ML VIAL SQ SCH ×3 (05:24→21:17)
[2017-01-06] MEDS ORDERED: IV SET PRIMARY PUMP SET 1 EA INFUS.SET MC ONE (05:36)
[2017-01-06] MEDS ORDERED: IV NS 0.9% 250 ML IV ONE (05:36)
[2017-01-06] MEDS: RENAL NOVASOURCE 1,000 ML BOTTLE GT PRN (05:49)
--- NOTE | 2017-01-06 07:30 | NUR ---
initial note patient in bed, sleeping, easily arousal, follows simple commands suctioned patient, noted small thick white secretions. O2 sat 99% with cool aerosol. tele monitor reading SR 80's. sly midline patent, dressing cdi. isolation for mrsa nares. noted allergies documented. no residuals noted in GT at this time, increased feeding to 30ml/hr. repositioned patient, discussed plan of care. dialysis nurse at bed side, no BP meds to be administered this AM. call light in reach.
[2017-01-06 07:40] LABS: BASOPHILS % (AUTO) 0.1 % (0.0-2.0); EOSINOPHILS # (AUTO) 0.8 /CMM (0.0-0.7); EOSINOPHILS % (AUTO) 5.6 % (0.0-6.0); HEMATOCRIT 33 % (33-45); HEMOGLOBIN 10.7 g/dL (11.5-14.8); LYMPHOCYTES # (AUTO) 1.2 /CMM (0.8-4.8); LYMPHOCYTES % (AUTO) 8.5 % (20.0-44.0); MEAN CORPUSCULAR HEMOGLOBIN 32 PG (26.0-33.0); MEAN CORPUSCULAR HGB CONC 32 g/dl (31.0-36.0); MEAN CORPUSCULAR VOLUME 100 fL (82-100); MONOCYTES # (AUTO) 1.1 /CMM (0.1-1.30); MONOCYTES % (AUTO) 7.7 % (2.0-12.0); NEUTROPHILS # (AUTO) 10.9 /CMM (1.8-8.9); NEUTROPHILS % (AUTO) 78.1 % (43.0-81.0); PLATELET COUNT (AUTO) 670 /CMM (150-450); RDW COEFFICIENT OF VARIATION 15.6 (11.5-15.0); RED BLOOD CELL COUNT(AUTO) 3.32 MIL/uL (4.0-5.2); WHITE BLOOD COUNT (AUTO) 13.9 K/uL (4.3-11.0)
[2017-01-06 07:46] LABS: CALCIUM, SERUM 12.1 mg/dL (8.5-10.1); CREATININE 3.9 mg/dL (0.6-1.3); MAGNESIUM 2.9 mg/dL (1.8-2.4); PHOSPHORUS 4.7 mg/dL (2.5-4.9); POTASSIUM 3.3 mmol/L (3.5-5.1)
[2017-01-06 08:00] VITALS: BP 133/72
[2017-01-06] MEDS: PANTOPRAZOLE 40 MG TABLET.DR PO SCH (08:28)
[2017-01-06] MEDS: VIT B CMPLX 3/FA/VIT C/BIOTIN 1 TAB TABLET GT SCH (08:28)
[2017-01-06] MEDS: POLYETHYLENE GLYCOL 3350 17 GM POWD.PACK GT SCH (08:28)
[2017-01-06] MEDS: FERROUS SULFATE UDC 300 MG/5 ML UDC GT SCH (08:28)
[2017-01-06] MEDS: METOCLOPRAMIDE HCL 10 MG/2 ML VIAL IV SCH ×2 (08:28→16:05)
[2017-01-06] MEDS: PREGABALIN 25 MG CAPSULE PO SCH ×3 (08:28→16:05)
[2017-01-06] MEDS: FOLIC ACID 1 MG TABLET GT SCH (08:28)
[2017-01-06] MEDS: DOCUSATE SODIUM LIQ 100 MG/10 ML UDC GT SCH ×2 (08:28→16:05)
[2017-01-06] MEDS: LIOTHYRONINE SODIUM (25 MCG) 25 MCG TABLET GT SCH ×2 (08:28→21:12)
[2017-01-06] MEDS: CARVEDILOL 12.5 MG TABLET GT SCH ×2 (08:33→21:15)
[2017-01-06] MEDS: CLONIDINE HCL 0.1 MG TABLET GT SCH ×2 (08:33→21:14)
[2017-01-06] MEDS: LOSARTAN POTASSIUM 50 MG TABLET GT SCH (08:33)
[2017-01-06] MEDS: MINOXIDIL (2.5MG) 2.5 MG TABLET GT SCH (08:33)
[2017-01-06] MEDS: MUPIROCIN OINT 2% 22 GM TUBE SCH ×2 (08:34→21:16)
[2017-01-06] MEDS: NIFEdipine (10MG) 10 MG CAPSULE GT SCH ×3 (08:34→16:05)
[2017-01-06 08:55] LABS: ANISOCYTOSIS 1+; EOSINOPHILS % (MANUAL) 3 % (0-4); LYMPHOCYTES % (MANUAL) 1 % (16-48); MONOCYTES % (MANUAL) 8 % (0-11.0); NEUTROPHILS % (MANUAL) 88 (42-76); PLATELET ESTIMATE INCREASED
[2017-01-06 12:00] VITALS: BP 135/90
--- NOTE | 2017-01-06 15:07 | NUR ---
Eddie Ashton aware of potassium level and swallow evaluation- no aspiration. aware of GT residual 150ml/hr, ordered to continue feeding. aware of VS and accu-check result trend.
[2017-01-06 16:00] VITALS: BP 147/91
[2017-01-06] MEDS ORDERED: SECONDARY IV SET 1 EA INFUS.SET MC ONE (16:04)
[2017-01-06] MEDS: CEFTRIAXONE 1 G in IV D5W 50 ML IV SCH (16:04)
[2017-01-06] MEDS: HYDROCODONE/APAP 5/325MG 1 EACH TABLET PO PRN ×2 (16:06→21:14)
--- NOTE | 2017-01-06 19:10 | NUR ---
RN INITIAL NOTES PT IS IN BED, HOB ELEVATED. A/0 X2, MOUTHS WORDS, PT IS ON LOOSENED SOFT BILATERAL WRIST RESTRAINTS SKIN CHECKED, INTACT, TURNED AND REPOSITIONED, NO SIGN OF AGITATION NOTED, FOLLOWS COMMAND, WILL CONTINUE TO MONITOR. ON TELE MONITOR SINUS RHYTHM. IV LINES CDI, TRACH INTACT, NO RESPIRATORY DISTRESS NOTED. CALL LIGHTS WITHIN REACH, ALL SAFETY MEASURES MAINTAINED.
--- NOTE | 2017-01-06 19:23 | NUR ---
closing note left patient in stable condition. not yelling or agitated at this time. breathing and LOC at base line WNL. o2 sat wnl. tolerated prn diaper changes and repositioning q2 hours. no residuals noted at end of shift during rounds. no aspiration with oral gratification. COMPUTER SYSTEM TECHNICIAN Eddie Ashton aware of all lab results today (wbc, plt, K), reviewed. NNO at this time. call light place in reach. no new wounds or incidences this shift. wrist skin intact, restraints loosened prn when patient calm.
[2017-01-06 20:00] VITALS: BP 145/91
--- NOTE | 2017-01-06 20:00 | NUR ---
RN NOTES 0 RESIDUAL NOTED, CHECKED PLACEMENT, CONTINUOUS FEEDING TURNED ON AT 20ML/HR. WILL CONTINUE TO MONITOR
--- NOTE | 2017-01-06 21:22 | NUR ---
RN NOTES ALL PINK STCK-MED ONCE CLEARED FOR PT SAFETY
[2017-01-06] MEDS: INSULIN DETEMIR 100 UNIT/ML CARTRIDGE SQ SCH (22:00)
--- NOTE | 2017-01-06 23:09 | NUR ---
RN NOTES BLOOD SUGAR 93, LEVEMIR 2O UNITS NOT GIVEN.
[2017-01-07] VITALS: BP 140/86
[2017-01-07] MEDS ORDERED: IV NS 0.9% 250 ML IV ONE (03:49)
[2017-01-07 04:00] VITALS: BP 150/90
[2017-01-07] MEDS: RENAL NOVASOURCE 1,000 ML BOTTLE GT PRN (04:02)
[2017-01-07] MEDS: HEPARIN SODIUM, PORCINE 5000 UNITS/1 ML VIAL SQ SCH ×3 (04:06→20:42)
[2017-01-07] MEDS: hydrALAZINE HCL 50 MG TABLET GT SCH ×3 (04:08→20:39)
[2017-01-07] MEDS: BLOOD SUGAR DIAGNOSTIC 1 EACH STRIP IN SCH ×4 (05:04→23:36)
[2017-01-07] MEDS: INSULIN REGULAR, HUMAN 100 UNIT/ML 3 ML VIAL SQ PRN ×4 (05:12→23:23)
--- NOTE | 2017-01-07 07:00 | NUR ---
RN NOTES RECEIVED PT ON BED, A/0 X2, MOUTHS WORDS, FOLLOWS SIMPLE COMMANDS , RESPIRATION EVEN AND UNLABORED, YANETH SOFT WRIST PROTECTIVE DEVICE ON FOR PT SAFETY , PT TRIES TO PULLS LINE OUT , ON TELE SR IN 90'S , R UPPER ARM MIDLINE AND R SUBCLAVIAN HD CATH SITE CDI, SR UP x3, CALL LIGHTS WITHIN REACH, CONTINUE TO MONITOR PT CLOSELY AND NOTIFY MD FOR ANY SIGNIFICANT CHANGES.
--- NOTE | 2017-01-07 07:33 | NUR ---
DIRECTOR BUSINESS TRAVEL CLOSING NOTES NO SIGNIFICANT CHANGES OVERNIGHT, TRACH INTACT, NO SOB, RESPIRATORY DISTRESS NOTED, SUCTION NEEDED. ON CONTINUOUS GT FEEDING @40ML/HR, NO RESIDUAL NOTED, TOLERATING IT WELL, WOUND TREATMENT PROVIDED, KEPT CLEAN AND DRY, TURNED AND REPOSITIONED Q2H AND PRN. ON SOFT BILATERAL WRIST RESTRAINT, CHECKED SKIN Q2H, ALL NEEDS MET, BED LOCKED AND IN LOWEST POSITION, ALL SAFETY MEASURES MAINTAINED, CALL LIGHTS WITHIN REACH, ENDORSED TO THE AM NURSE FOR CONTINUATION OF CARE
[2017-01-07 08:00] VITALS: BP 148/68
[2017-01-07] MEDS: DOCUSATE SODIUM LIQ 100 MG/10 ML UDC GT SCH ×2 (08:26→17:26)
[2017-01-07] MEDS: FERROUS SULFATE UDC 300 MG/5 ML UDC GT SCH (08:26)
[2017-01-07] MEDS: VIT B CMPLX 3/FA/VIT C/BIOTIN 1 TAB TABLET GT SCH (08:27)
[2017-01-07] MEDS: FOLIC ACID 1 MG TABLET GT SCH (08:27)
[2017-01-07] MEDS: PREGABALIN 25 MG CAPSULE PO SCH ×3 (08:27→17:26)
[2017-01-07] MEDS: MINOXIDIL (2.5MG) 2.5 MG TABLET GT SCH (08:27)
[2017-01-07] MEDS: CARVEDILOL 12.5 MG TABLET GT SCH ×2 (08:27→20:39)
[2017-01-07] MEDS: PANTOPRAZOLE 40 MG TABLET.DR PO SCH (08:28)
[2017-01-07] MEDS: LIOTHYRONINE SODIUM (25 MCG) 25 MCG TABLET GT SCH ×2 (08:28→20:39)
[2017-01-07] MEDS: POLYETHYLENE GLYCOL 3350 17 GM POWD.PACK GT SCH (08:28)
[2017-01-07] MEDS: CLONIDINE HCL 0.1 MG TABLET GT SCH ×2 (08:28→20:38)
[2017-01-07] MEDS: LOSARTAN POTASSIUM 50 MG TABLET GT SCH (08:28)
[2017-01-07] MEDS: METOCLOPRAMIDE HCL 10 MG/2 ML VIAL IV SCH ×2 (08:28→17:26)
[2017-01-07] MEDS: MUPIROCIN OINT 2% 22 GM TUBE SCH ×2 (08:29→20:40)
[2017-01-07] MEDS: NIFEdipine (10MG) 10 MG CAPSULE GT SCH ×3 (08:34→17:27)
[2017-01-07] MEDS: HYDROCODONE/APAP 5/325MG 1 EACH TABLET PO PRN ×2 (11:54→20:40)
--- NOTE | 2017-01-07 12:00 | NUR ---
RN NOTES PT STABLE, TRACH CARE DONE, CONTINUE TO MONITOR .
[2017-01-07 16:00] VITALS: BP 113/69
--- NOTE | 2017-01-07 16:48 | NUR ---
RN NOTES PT RECEIVING HD AT THIS TIME , IV ABX HELD TILL HD IS DONE .
[2017-01-07] MEDS: CEFTRIAXONE 1 G in IV D5W 50 ML IV SCH (17:26)
--- NOTE | 2017-01-07 18:34 | NUR ---
RN NOTES VSS STABLE, R UPPER ARM MIDLINE SITE CDI, RESPIRATION EVEN AND UNLABORED, TOLERATING TF WELL, N RESIDUAL NOTED. MEDICATED PER MD ORDER , NO SIGNIFICANT CHANGES NOTED ON THIS SHIFT
[2017-01-07] MEDS: CLONIDINE HCL 0.3 MG/24H PTWK 1 EA PATCH TD SCH (18:42)
--- NOTE | 2017-01-07 19:45 | NUR ---
CLOTH CUTTING INSPECTOR INITIAL NOTES PT IS IN BED, HOB ELEVATED, NO ACUTE DISTRESS NOTED, REORIENTED PT. ON TRACH MASK AT 5.0LPM, PORTEX 5, SITE CDI. GT PLACEMENT CHECKED AND PATENT, NO RESIDUAL NOTED.PT TURNED AND REPOSITIONED. IV SITES FLUSHED AND PATENT, NO S/SX OF INFECTION/INFILTRATION NOTED. PT IS ON SOFT BILATERAL WRIST RESTRAINTS, CHECKED SKIN, INTACT. BED LOCKED AND IN LOWEST POSITION, CALL LIGHTS WITHIN REACH.
[2017-01-07 20:00] VITALS: BP 126/69
[2017-01-07] MEDS: INSULIN DETEMIR 100 UNIT/ML CARTRIDGE SQ SCH (23:22)
[2017-01-08] VITALS: BP 139/74
[2017-01-08 04:00] VITALS: BP 128/67
[2017-01-08] MEDS ORDERED: IV NS 0.9% 250 ML IV ONE (05:05)
[2017-01-08] MEDS: BLOOD SUGAR DIAGNOSTIC 1 EACH STRIP IN SCH ×4 (05:14→23:18)
[2017-01-08] MEDS: hydrALAZINE HCL 50 MG TABLET GT SCH ×3 (05:16→21:42)
[2017-01-08] MEDS: RENAL NOVASOURCE 1,000 ML BOTTLE GT PRN (05:16)
[2017-01-08 06:38] LABS: BASOPHILS % (AUTO) 0.3 % (0.0-2.0); EOSINOPHILS # (AUTO) 1.1 /CMM (0.0-0.7); EOSINOPHILS % (AUTO) 9.7 % (0.0-6.0); HEMATOCRIT 31 % (33-45); HEMOGLOBIN 10.1 g/dL (11.5-14.8); LYMPHOCYTES # (AUTO) 1.8 /CMM (0.8-4.8); LYMPHOCYTES % (AUTO) 15.4 % (20.0-44.0); MEAN CORPUSCULAR HEMOGLOBIN 33 PG (26.0-33.0); MEAN CORPUSCULAR HGB CONC 32 g/dl (31.0-36.0); MEAN CORPUSCULAR VOLUME 102 fL (82-100); MONOCYTES # (AUTO) 1.6 /CMM (0.1-1.30); NEUTROPHILS % (AUTO) 60.6 % (43.0-81.0); PLATELET COUNT (AUTO) 596 /CMM (150-450); RED BLOOD CELL COUNT(AUTO) 3.07 MIL/uL (4.0-5.2); WHITE BLOOD COUNT (AUTO) 11.5 K/uL (4.3-11.0)
[2017-01-08 06:41] LABS: CALCIUM, SERUM 10.5 mg/dL (8.5-10.1); CREATININE 3.6 mg/dL (0.6-1.3); MAGNESIUM 2.9 mg/dL (1.8-2.4); PHOSPHORUS 2.8 mg/dL (2.5-4.9); POTASSIUM 3.3 mmol/L (3.5-5.1)
[2017-01-08 06:48] LABS: URIC ACID 4.3 mg/dL (2.6-7.2)
--- NOTE | 2017-01-08 07:25 | NUR ---
TURNER MACHINE INITIAL NOTES PT IS IN BED, A/0 X1, NON VERBAL, NO ACUTE DISTRESS NOTED, ON T-PIECE AT 5.0LPM, PORTEX 5, TRACH SITE CLEAN AND DRY. GT PLACEMENT CHECKED AND PATENT, NO RESIDUAL NOTED, HOB ELEVATED, ASPIRATION PRECAUTION. PT TURNED AND REPOSITIONED.IV SITES CDI. PT IS ON SOFT BILATERAL WRIST RESTRAINTS, CHECKED SKIN FOR CIRCULATION, SKIN INTACT, REORIENTED PT. BED LOCKED AND IN LOWEST POSITION, CALL LIGHTS WITHIN REACH
--- NOTE | 2017-01-08 07:30 | NUR ---
RN INITIAL NOTE PT RECEIVED IN BED, SLEEPING COMFORTABLY. PT HAS TRACH, ABLE TO MOUTH WORDS. pORTEX #6, MASK WITH 5L OXYGEN. FI02 28%, SATING WELL. GTUBE FLUSHED AND PATENT. RUNNING NOVASOURCE AT 40ML/HR. SINUS RHYTHM ON TELE MONITOR. IV SITE FLUSHED AND PATENT. DRESSING C/D/I. SKIN IS WARM AND DRY TO TOUCH. SAFETY PRECAUTIONS IMPLEMENTED. BED IN LOCKED, LOW POSITION, TWO SIDE RAILS UP. ISOLATION PRECAUTIONS OBSERVED. PT ON BILATERAL SOFT WRIST RESTRAINTS, CIRCULATION ASSESSED. CALL LIGHT AND BELONGINGS WITHIN REACH. WILL CONTINUE TO MONITOR.
--- NOTE | 2017-01-08 07:34 | NUR ---
ORACLE DEVELOPER CLOSING NOTES NO SIGNIFICANT CHANGES OVERNIGHT, ON TPIECE MASK, TOLERATING IT WELL, NO RESPIRATORY DISTRESS NOTED, TRACH GIVEN AND SUCTIONED PRN. ON CONTINUOUS GT FEEDING @40ML/HR, TOLERATING IT WELL, WOUND TREATMENT PROVIDED, KEPT CLEAN AND DRY, TURNED AND REPOSITIONED Q2H. ON SOFT BILATERAL WRIST RESTRAINT, CHECKED SKIN Q2H, ALL NEEDS MET, BED LOCKED AND IN LOWEST POSITION, CALL LIGHT WITHIN REACH, ENDORSED TO THE AM NURSE FOR CONTINUATION OF CARE
[2017-01-08 08:00] VITALS: BP 127/72
[2017-01-08] MEDS: DOCUSATE SODIUM LIQ 100 MG/10 ML UDC GT SCH ×2 (08:26→18:20)
[2017-01-08] MEDS: FERROUS SULFATE UDC 300 MG/5 ML UDC GT SCH (08:26)
[2017-01-08] MEDS: FOLIC ACID 1 MG TABLET GT SCH (08:27)
[2017-01-08] MEDS: POLYETHYLENE GLYCOL 3350 17 GM POWD.PACK GT SCH (08:27)
[2017-01-08] MEDS: METOCLOPRAMIDE HCL 10 MG/2 ML VIAL IV SCH ×2 (08:27→21:40)
[2017-01-08] MEDS: PREGABALIN 25 MG CAPSULE PO SCH ×3 (08:27→18:20)
[2017-01-08] MEDS: VIT B CMPLX 3/FA/VIT C/BIOTIN 1 TAB TABLET GT SCH (08:27)
[2017-01-08] MEDS: CLONIDINE HCL 0.1 MG TABLET GT SCH ×2 (08:27→21:43)
[2017-01-08] MEDS: CARVEDILOL 12.5 MG TABLET GT SCH ×2 (08:28→21:42)
[2017-01-08] MEDS: HYDROCODONE/APAP 5/325MG 1 EACH TABLET PO PRN ×4 (08:28→21:41)
[2017-01-08] MEDS: PANTOPRAZOLE 40 MG TABLET.DR PO SCH (08:28)
[2017-01-08] MEDS: LIOTHYRONINE SODIUM (25 MCG) 25 MCG TABLET GT SCH ×2 (08:28→21:42)
[2017-01-08] MEDS: LOSARTAN POTASSIUM 50 MG TABLET GT SCH (08:29)
[2017-01-08] MEDS: MINOXIDIL (2.5MG) 2.5 MG TABLET GT SCH (08:29)
[2017-01-08] MEDS: NIFEdipine (10MG) 10 MG CAPSULE GT SCH ×3 (08:31→18:22)
[2017-01-08] MEDS: MUPIROCIN OINT 2% 22 GM TUBE SCH ×2 (08:32→21:45)
[2017-01-08 12:00] VITALS: BP 107/59
[2017-01-08] MEDS: INSULIN REGULAR, HUMAN 100 UNIT/ML 3 ML VIAL SQ PRN ×3 (14:46→23:22)
[2017-01-08 16:00] VITALS: BP 125/74
--- NOTE | 2017-01-08 19:07 | NUR ---
RN CLOSING NOTE ALL MD ORDERS CARRIED OUT. PT KEPT CLEAN AND DRY. SAFETY PRECAUTIONS IN PLACE AT ALL TIMES WILL GIVE REPORT TO PM RN FOR CASSI.
[2017-01-08 20:00] VITALS: BP 132/98
[2017-01-08] MEDS: INSULIN DETEMIR 100 UNIT/ML CARTRIDGE SQ SCH (23:23)
[2017-01-09] VITALS: BP 143/86
[2017-01-09 04:00] VITALS: BP 122/71
[2017-01-09] MEDS ORDERED: IV NS 0.9% 250 ML IV ONE (04:36)
[2017-01-09] MEDS: RENAL NOVASOURCE 1,000 ML BOTTLE GT PRN (04:59)
[2017-01-09] MEDS: HYDROCODONE/APAP 5/325MG 1 EACH TABLET PO PRN ×3 (04:59→21:12)
[2017-01-09] MEDS: hydrALAZINE HCL 50 MG TABLET GT SCH ×3 (05:00→21:11)
[2017-01-09] MEDS: BLOOD SUGAR DIAGNOSTIC 1 EACH STRIP IN SCH ×4 (05:00→23:04)
[2017-01-09] MEDS: DEXTROSE 50%-WATER 50 ML DISP.SYRIN IV PRN (05:11)
--- NOTE | 2017-01-09 05:57 | NUR ---
RN NOTES BLOOD SUGAR 38, SECOND BS CHECKED BS 38, DEXTROSE INJ 50% GIVEN ORDER, CHECKED BS AFTER 15 MINUTES BS 100.
[2017-01-09 06:07] LABS: CALCIUM, SERUM 9.3 mg/dL (8.5-10.1); CREATININE 4.7 mg/dL (0.6-1.3); MAGNESIUM 3.1 mg/dL (1.8-2.4); PHOSPHORUS 3.3 mg/dL (2.5-4.9); POTASSIUM 3.1 mmol/L (3.5-5.1)
[2017-01-09 06:08] LABS: BASOPHILS # (AUTO) 0.1 /CMM (0.0-0.2); BASOPHILS % (AUTO) 0.7 % (0.0-2.0); EOSINOPHILS # (AUTO) 1.2 /CMM (0.0-0.7); EOSINOPHILS % (AUTO) 11.2 % (0.0-6.0); HEMATOCRIT 29 % (33-45); HEMOGLOBIN 9.1 g/dL (11.5-14.8); LYMPHOCYTES % (AUTO) 19.5 % (20.0-44.0); MEAN CORPUSCULAR HEMOGLOBIN 32 PG (26.0-33.0); MEAN CORPUSCULAR HGB CONC 32 g/dl (31.0-36.0); MEAN CORPUSCULAR VOLUME 101 fL (82-100); MONOCYTES # (AUTO) 1.6 /CMM (0.1-1.30); MONOCYTES % (AUTO) 14.8 % (2.0-12.0); NEUTROPHILS # (AUTO) 5.7 /CMM (1.8-8.9); NEUTROPHILS % (AUTO) 53.8 % (43.0-81.0); PLATELET COUNT (AUTO) 513 /CMM (150-450); RDW COEFFICIENT OF VARIATION 17.3 (11.5-15.0); RED BLOOD CELL COUNT(AUTO) 2.83 MIL/uL (4.0-5.2); WHITE BLOOD COUNT (AUTO) 10.5 K/uL (4.3-11.0)
--- NOTE | 2017-01-09 06:43 | NUR ---
RN NOTES 0510 BS 38; BLOOD DRAWN FROM MIDLINE BUT HEMOLYZED; ASKED LAB TO DRAW PERIPHERALLY; D50 GIVEN 0542 LAB RESULT FOR GLUCOSE CAME OUT 124; BLOOD DRAWN AFTER D50 ADMINISTERED 0543 FBS 100
--- NOTE | 2017-01-09 07:15 | NUR ---
RN NOTES RECEIVED PT ON BED,A/Ox1-2, FOLLOWS SIMPLE COMMANDS , TRACH CARE DONE , ON COOL AEROSOL AT 5L /HR, NO SOB NOTED NO SIGNIFICANT , R UPPER ARM MIDLINE IV SITE CDI, ON CONTINUOUS GT FEEDING @40ML/HR, TOLERATING IT WELL, NO RESIDUAL NOTED, ON SOFT BILATERAL WRIST RESTRAINT, PT TRIES TO PULL ON LINES , BED LOCKED AND IN LOWEST POSITION, CALL LIGHT WITHIN REACH REACH , CONTINUE TO MONITOR PT CLOSELY AND NOTIFY MD FOR ANY SIGNIFICANT CHANGES.
--- NOTE | 2017-01-09 07:56 | NUR ---
MAINFRAME PROGRAMMER CLOSING NOTES NO SIGNIFICANT CHANGES OVERNIGHT, ON T-PIECE 5.0L FI028%, SATURATION 98%,NO RESPIRATORY DISTRESS NOTED, TRACH CARE DONE AND SUCTIONED PRN. GT FEEDING @40ML/HR, TOLERATING IT WELL, WOUND TREATMENT PROVIDED, KEPT CLEAN AND DRY, TURNED AND REPOSITIONED Q2H. ON SOFT BILATERAL WRIST RESTRAINT, CHECKED SKIN Q2H, BED LOCKED AND IN LOWEST POSITION, CALL LIGHT WITHIN REACH, ENDORSED TO THE AM NURSE FOR CONTINUATION OF CARE
[2017-01-09 08:00] VITALS: BP 110/75
[2017-01-09] MEDS: DOCUSATE SODIUM LIQ 100 MG/10 ML UDC GT SCH ×2 (08:37→16:51)
[2017-01-09] MEDS: FERROUS SULFATE UDC 300 MG/5 ML UDC GT SCH (08:37)
[2017-01-09] MEDS: POLYETHYLENE GLYCOL 3350 17 GM POWD.PACK GT SCH (08:37)
[2017-01-09] MEDS: LOSARTAN POTASSIUM 50 MG TABLET GT SCH (08:38)
[2017-01-09] MEDS: VIT B CMPLX 3/FA/VIT C/BIOTIN 1 TAB TABLET GT SCH (08:38)
[2017-01-09] MEDS: LIOTHYRONINE SODIUM (25 MCG) 25 MCG TABLET GT SCH ×2 (08:39→21:09)
[2017-01-09] MEDS: PREGABALIN 25 MG CAPSULE PO SCH ×3 (08:39→16:51)
[2017-01-09] MEDS: CARVEDILOL 12.5 MG TABLET GT SCH ×2 (08:39→21:11)
[2017-01-09] MEDS: MINOXIDIL (2.5MG) 2.5 MG TABLET GT SCH (08:39)
[2017-01-09] MEDS: METOCLOPRAMIDE HCL 10 MG/2 ML VIAL IV SCH ×2 (08:40→16:51)
[2017-01-09] MEDS: FOLIC ACID 1 MG TABLET GT SCH (08:40)
[2017-01-09] MEDS: PANTOPRAZOLE 40 MG TABLET.DR PO SCH (08:40)
[2017-01-09] MEDS: NIFEdipine (10MG) 10 MG CAPSULE GT SCH ×3 (08:40→16:51)
[2017-01-09] MEDS: CLONIDINE HCL 0.1 MG TABLET GT SCH ×2 (08:41→21:10)
[2017-01-09] MEDS: MUPIROCIN OINT 2% 22 GM TUBE SCH ×2 (08:42→21:12)
[2017-01-09 10:18] LABS: *SPE A/G RATIO 0.8 (0.7-1.7); *SPE ALBUMIN 3.4 g/dL (2.9-4.4); *SPE ALPHA-1-GLOBULIN 0.3 g/dL (0.0-0.4); *SPE BETA GLOBULIN 1.1 g/dL (0.7-1.3); *SPE GLOBULIN, TOTAL 4.4 g/dL (2.2-3.9); *SPE M-SPIKE Not Observed g/dL (Not Observed); *SPE PROTEIN TOTAL 7.8 g/dL (6.0-8.5)
[2017-01-09] MEDS ORDERED: EPOETIN ALFA (10,000 UNIT) 10,000 UNIT/ML VIAL SQ ONE (10:30)
--- NOTE | 2017-01-09 11:37 | NUR ---
RT PATIENT SELF DECANNULATED HERSELF. CURRENTLY IN NO DISTRESS SPO2 99%. RV MECHANIC BOSSMAN AT BEDSIDE AGREES TO CONT TO MONITOR AND LEAVE TRACH OUT. DR ALCAZAR CALLED AND MADE AWARE AND AGREES TO LEAVE THE TRACH OUT. PATIENT PLACED ON 2L N/C AND STOMA SITE COVERED W/ GAUZE.
--- NOTE | 2017-01-09 11:38 | NUR ---
RN NOTES RN AT BEDSIDE, NOTED PT T-PIECE PULLED OUT, PT SATING 98% AT THIS TIME, NOT ON ANY RESP DISTRESS. RT AT BEDSIDE, BOSSMAN AUTOMATIC CORN GRINDER OPERATOR MADE AWARE OF CURRENT SITUATION, BOSSMAN AUTOMATIC CORN GRINDER OPERATOR AT BEDSIDE PT WAS SEEN AND EVALUATED PER BOSSMAN OK TO LEAVE TRACHE OUT, CONT PULSE MONITORING. HOLD DC FOR TODAY.
--- NOTE | 2017-01-09 11:38 | NUR ---
RN NOTES PT ACCIDENTALLY REMOVED THE TRACH TUBE OUT , O2 SAT 100% ON RA, NO DISTRESS NOTE, DR ALCAZAR NOTIFIED, OKAY TO LEAVE TRACH OUT , CONTINUE TO MONITOR PT O2 SAT
[2017-01-09] MEDS ORDERED: POTASSIUM CHLORIDE 20 MEQ POWDER PACKET GT ONE (12:00)
[2017-01-09 12:11] LABS: IMMUNOGLOBULIN A, SERUM 269 mg/dL (87-352); IMMUNOGLOBULIN G, SERUM 1842 mg/dL (700-1600); IMMUNOGLOBULIN M, SERUM 99 mg/dL (26-217)
--- NOTE | 2017-01-09 13:57 | NUR ---
RN NOTES PT IS RECEIVING HD AT THIS TIME ,PROCARDIA AND APRESOLINE HELD AT THIS TIME .
[2017-01-09 16:00] VITALS: BP 125/75
[2017-01-09] MEDS: INSULIN REGULAR, HUMAN 100 UNIT/ML 3 ML VIAL SQ PRN (17:10)
--- NOTE | 2017-01-09 18:21 | NUR ---
RN NOTES PT STABLE , RA O2 SAT 100%, RESPIRATION EVEN AND UNLABORED, TRACH STILL OUT ,DRESSING TO TRACH HOLD CLEAN DRY INTACT, PT MEDICATED PER MD ORDER , NO SIGNIFICANT CHANGES NOTED ON THIS SHIFT
--- NOTE | 2017-01-09 19:14 | NUR ---
RN INITIAL NOTES PT IS IN BED, HOB ELEVATED, A/O X1-2, ON NASAL CANNULA 2L, NO RESPIRATORY DISTRESS NOTED, WILL CONTINUE TO MONITOR. GT SITES CHECKED FOR PLACEMENT, NO RESIDUAL NOTED, ON ASPIRATION PRECAUTION. IV SITES IN R UPPER ARM PATENT AND FLUSHED, NO S/SX OF INFECTION OR INFILTRATION. SIDERAILS UP, BED LOCKED AND IN LOWEST POSITION, CALL LIGHT WITHIN REACH.
[2017-01-09 20:00] VITALS: BP 134/85
[2017-01-09] MEDS: INSULIN DETEMIR 100 UNIT/ML CARTRIDGE SQ SCH (23:13)
[2017-01-10] MEDS: INSULIN REGULAR, HUMAN 100 UNIT/ML 3 ML VIAL SQ PRN ×2 (00:39→16:58)
--- NOTE | 2017-01-10 00:53 | NUR ---
RN NOTES GAVE REPORT TO FREDDY FLOR FOR CONTINUATION OF CARE
--- NOTE | 2017-01-10 00:53 | NUR ---
MS RN NOTE REPORT GIVEN TO ME BY NURSE SILVA FOR CONTINUE TO CARE FOR THE PT. PT IN BED ASLEEP, NO DISTRESS OR DISCOMFORT NOTED. NO S/S OF PAIN NOTED. GT FEEDING INFUSING WELL, O ML RESIDUAL NOTED. BILATERAL WRIST RESTRAINTS ON. SKIN WNL. REPOSITION HER FOR SKIN MANAGEMENT. SIDE RAILS UP X 3 AND CALL LIGHT WITHIN REACH. CONTINUE TO MONITOR HER.
--- NOTE | 2017-01-10 00:55 | NUR ---
MS RN NOTE BLOODSUGAR CHECKED 354, 15 UNITS OF HUMULIN R INSULIN SQ GIVEN.
[2017-01-10 04:00] VITALS: BP 147/90
[2017-01-10] MEDS: hydrALAZINE HCL 50 MG TABLET GT SCH ×3 (04:23→21:00)
[2017-01-10] MEDS: HYDROCODONE/APAP 5/325MG 1 EACH TABLET PO PRN ×5 (04:24→20:45)
--- NOTE | 2017-01-10 04:36 | NUR ---
MS RN NOTE PT IS C/O PAIN IN RT HAND 02/18, NORCO 1 TAB VIA GT GIVEN. CONTINUE TO MONITOR HER.
[2017-01-10] MEDS: RENAL NOVASOURCE 1,000 ML BOTTLE GT PRN ×2 (05:27→16:18)
[2017-01-10] MEDS: BLOOD SUGAR DIAGNOSTIC 1 EACH STRIP IN SCH ×3 (05:35→17:50)
--- NOTE | 2017-01-10 05:36 | NUR ---
MS RN NOTE PAIN SUBSIDED 10/21. BS CHECKED 77, NO INSULIN COVERAGE GIVEN. GT FEEDING BAG CHANGED. PT IN NO DISTRESS OR DISCOMFORT. CONTINUE WITH BILATERAL SOFT WRIST RESTRAINTS ON. PT IS TRYING TO PULL TUBES OUT.
--- NOTE | 2017-01-10 06:38 | NUR ---
MS RN NOTE PT IN BED AWAKE. NO DISTRESS OR DISCOMFORT NOTED. DENIES PAIN. GT FEEDING INFUSING WELL. 0 ML RESIDUAL NOTED. KEPT HER DRY AND CLEAN. ALL NEEDS ATTENDED. SIDE RAILS UP X 3 AND CALL LIGHT WITHIN REACH. WILL ENDORSE TO DAY SHIFT NURSE FOR CONTINUE TO CARE.
--- NOTE | 2017-01-10 07:20 | NUR ---
RN INITIAL NOTE RECEIVED PT FROM PM NURSE. PT A/O 1-2 ABLE TO NOD HEAD TO NEEDS AND WANTS. PT 2L NC NO C/O ACUTE SOB. GT PLACEMENT CK NO RESIDUAL PT TOLERATING NOVASOURCE 40 ML/HR. IV JOAQUIM MIDLINE NS @ TKO R SUBCLAVIAN HD CATH.
[2017-01-10 08:00] VITALS: BP 143/78
[2017-01-10 08:10] LABS: *SPE A/G RATIO 0.8 (0.7-1.7); *SPE ALBUMIN 3.4 g/dL (2.9-4.4); *SPE ALPHA-1-GLOBULIN 0.3 g/dL (0.0-0.4); *SPE ALPHA-2-GLOBULIN 0.9 g/dL (0.4-1.0); *SPE M-SPIKE Not Observed g/dL (Not Observed); *SPE PROTEIN TOTAL 7.4 g/dL (6.0-8.5); *SPEGAMMA GLOBULIN 1.9 g/dL (0.4-1.8)
[2017-01-10] MEDS: LIOTHYRONINE SODIUM (25 MCG) 25 MCG TABLET GT SCH ×2 (08:14→20:44)
[2017-01-10] MEDS: PANTOPRAZOLE 40 MG TABLET.DR PO SCH (08:14)
[2017-01-10] MEDS: VIT B CMPLX 3/FA/VIT C/BIOTIN 1 TAB TABLET GT SCH (08:14)
--- NOTE | 2017-01-10 08:15 | NUR ---
RN NOTE UNABLE ABLE TO SCAN COREG, SCANNED MULTIPLE TIMES PHARMACY CONTACTED.
[2017-01-10] MEDS: DOCUSATE SODIUM LIQ 100 MG/10 ML UDC GT SCH ×2 (08:16→16:19)
[2017-01-10] MEDS: MINOXIDIL (2.5MG) 2.5 MG TABLET GT SCH (08:16)
[2017-01-10] MEDS: NIFEdipine (10MG) 10 MG CAPSULE GT SCH ×3 (08:16→16:20)
[2017-01-10] MEDS: CLONIDINE HCL 0.1 MG TABLET GT SCH ×2 (08:17→21:09)
[2017-01-10] MEDS: LOSARTAN POTASSIUM 50 MG TABLET GT SCH (08:18)
[2017-01-10] MEDS: CARVEDILOL 12.5 MG TABLET GT SCH ×2 (08:18→21:00)
[2017-01-10] MEDS: FOLIC ACID 1 MG TABLET GT SCH (08:18)
[2017-01-10] MEDS: MUPIROCIN OINT 2% 22 GM TUBE SCH ×2 (08:19→21:02)
[2017-01-10] MEDS: FERROUS SULFATE UDC 300 MG/5 ML UDC GT SCH (08:19)
[2017-01-10] MEDS: METOCLOPRAMIDE HCL 10 MG/2 ML VIAL IV SCH ×2 (08:19→16:20)
[2017-01-10] MEDS: POLYETHYLENE GLYCOL 3350 17 GM POWD.PACK GT SCH (08:19)
[2017-01-10] MEDS: PREGABALIN 25 MG CAPSULE PO SCH ×3 (08:19→16:18)
[2017-01-10] MEDS ORDERED: IV NS 0.9% 250 ML IV ONE (08:41)
[2017-01-10] MEDS ORDERED: IV SET PRIMARY PUMP SET 1 EA INFUS.SET MC ONE (08:41)
[2017-01-10] MEDS: ACETAMINOPHEN 325 MG TABLET PO PRN (10:49)
[2017-01-10 13:03] LABS: *HGBFR CHEMOGLOBIN SOLUBILITY Negative (Negative); *HGBFRC HEMOGLOBIN A 96.8 % (94.0-98.0); *HGBFRC HEMOGLOBIN A2 2.4 % (0.7-3.1); *HGBFRC HEMOGLOBIN F 0.8 % (0.0-2.0)
[2017-01-10 14:00] VITALS: BP 124/67
[2017-01-10 16:00] VITALS: BP 124/67
--- NOTE | 2017-01-10 19:20 | NUR ---
RN INITIAL NOTE RECEIVED PT IN NO ACUTE DISTRESS IN BED. PT IS A/O X 2 AND CAN SPEAK BUT MOSTLY YELLS. PT HAD TRACH, BUT PT REMOVED IT. PT IS TOLERATING O2 VIA NC @ 2LPM. PT NOT C/O ANY SOB, DIFFICULTY BREATHING, BUT IS C/O PAIN. PAIN MANAGEMENT INITIATED AND NORCO WILL BE GIVEN AT THE SCHEDULED TIME. PT HAS G TUBE THAT IS CLEAN DRY INTACT AND PATENT WITH NOVASOURCE @ 60ML/HR AND TOLERATING WELL WITH 0 RESIDUAL. PT HAS IV THAT IS CLEAN DRY INTACT AND PATENT WITH SALINE FLUSH. BED IN LOW LOCK POSITION WITH RAILS UP X 2. CALL LIGHT WITHIN REACH AND ALL SAFETY MEASURES ENSURED AND CARRIED OUT. WILL CONTINUE TO MONITOR PT.
--- NOTE | 2017-01-10 19:24 | NUR ---
RN CLOSING NOTE PT A/O 1-2 ABLE TO NOD HEAD TO NEEDS AND WANTS. PT 2L NC NO C/O ACUTE SOB. GT PLACEMENT CK NO RESIDUAL PT TOLERATING NOVASOURCE 40 ML/HR. IV JOAQUIM MIDLINE NS @ TKO R SUBCLAVIAN HD CATH. ALL MEDICATIONS GIVEN ALL ORDERS CARRIED OUT. REPORT GIVEN TO PM NURSE FOR CASSI.
[2017-01-10 20:00] VITALS: BP 116/74
--- NOTE | 2017-01-10 20:20 | NUR ---
RN NOTE ENDORSED CARE TO MICHELLE FLOR FOR CONTINUITY OF CARE.
--- NOTE | 2017-01-10 20:25 | NUR ---
RN OPENING NOTES RECEIVED REPORT FROM RN SPRING. FOUND Pt AWAKE IN BED, NO S/S OF ACUTE DISTRESS OR SOB. Pt IS GRIMACING AND YELLING. Pt IS A/OX1-2, NONVERBAL, BUT ABLE TO NOD TO YES OR NO QUESTIONS. WHEN ASKED IF SHE WAS IN PAIN Pt NODDED YES, AND WHEN ASKED IF SHE WANTED HER PAIN MED Pt NODDED YES. Pt ON GTUBE FEEDING NOVASOURCE @40ML/HR. IV ACCESS ON JOAQUIM MIDLINE, R SUBCLAVIAN HD CATH. SAFETY MEASURES IN PLACE. CURRENTLY Pt IS BEING COOPERATIVE AND CALM WITHOUT THE RESTRAINTS AT THIS TIME. BED IS LOW, LOCKED, HOB ELEVATED, SIDE RAILS UP, CALL LIGHT WITHIN REACH. WILL CONTINUE TO MONITOR Pt THROUGHOUT THE NIGHT.
[2017-01-10] MEDS: INSULIN DETEMIR 100 UNIT/ML CARTRIDGE SQ SCH (21:19)
[2017-01-10] MEDS: ZOLPIDEM TARTRATE 5 MG TABLET PO PRN (23:44)
[2017-01-11] VITALS: BP 134/83
[2017-01-11] MEDS: BLOOD SUGAR DIAGNOSTIC 1 EACH STRIP IN SCH ×4 (00:21→17:38)
--- NOTE | 2017-01-11 00:45 | NUR ---
RN NOTES ACCUCHECK BG 114. NO INSULIN COVERAGE NEEDED AT THIS TIME. ON CONTINUOUS GT FEEDING NOVASOURCE @40ML/HR.
[2017-01-11] MEDS: HYDROCODONE/APAP 5/325MG 1 EACH TABLET PO PRN ×2 (00:56→19:29)
[2017-01-11] MEDS: ACETAMINOPHEN 325 MG TABLET PO PRN (01:51)
[2017-01-11 04:00] VITALS: BP 115/75
[2017-01-11] MEDS: hydrALAZINE HCL 50 MG TABLET GT SCH ×2 (05:00→12:41)
--- NOTE | 2017-01-11 06:45 | NUR ---
RN CLOSING NOTES NO SIGNIFICANT CHANGES DURING THE NIGHT. Pt WAS CALM AND COOPERATIVE, DID NOT NEED TO PUT ON SOFT RESTRAINTS, Pt AGREED TO BEHAVE AND NOT PULL ON ANYTHING. Pt STILL YELLED OUT DUE TO PAIN. ALL NEEDS MET AND ATTENDED TO. SAFETY MEASURES IN PLACE. NO S/S OF ACUTE DISTRESS OR SOB NOTED DURING THE NIGHT. WILL ENDORSE TO DAYSHIFT RN FOR Pt's CASSI.
--- NOTE | 2017-01-11 07:00 | NUR ---
RN INITIAL NOTE RECEIVED PT IN NO ACUTE DISTRESS IN BED. PT IS A/O X 2 AND CAN SPEAK BUT MOSTLY YELLS.PT IS TOLERATING O2 VIA NC @ 2LPM. NO SOB.NO C/O PAIN.PT HAS G TUBE CDI AND PATENT WITH NOVASOURCE @ 60ML/HR AND TOLERATING WELL WITH 0 RESIDUAL. PT HAS IV THAT IS CLEAN DRY INTACT AND PATENT WITH SALINE FLUSH. BED IN LOW LOCK POSITION WITH RAILS UP X 2. CALL LIGHT WITHIN REACH AND ALL SAFETY MEASURES ENSURED AND CARRIED OUT. WILL CONTINUE TO MONITOR PT.
[2017-01-11] MEDS: INSULIN REGULAR, HUMAN 100 UNIT/ML 3 ML VIAL SQ PRN (07:32)
[2017-01-11 07:33] LABS: BASOPHILS % (AUTO) 0.4 % (0.0-2.0); EOSINOPHILS # (AUTO) 0.9 /CMM (0.0-0.7); EOSINOPHILS % (AUTO) 11.2 % (0.0-6.0); HEMATOCRIT 32 % (33-45); HEMOGLOBIN 10.3 g/dL (11.5-14.8); LYMPHOCYTES # (AUTO) 1.4 /CMM (0.8-4.8); LYMPHOCYTES % (AUTO) 16.9 % (20.0-44.0); MEAN CORPUSCULAR HEMOGLOBIN 33 PG (26.0-33.0); MEAN CORPUSCULAR HGB CONC 32 g/dl (31.0-36.0); MEAN CORPUSCULAR VOLUME 103 fL (82-100); MONOCYTES # (AUTO) 0.9 /CMM (0.1-1.30); MONOCYTES % (AUTO) 10.9 % (2.0-12.0); NEUTROPHILS % (AUTO) 60.6 % (43.0-81.0); PLATELET COUNT (AUTO) 511 /CMM (150-450); RDW COEFFICIENT OF VARIATION 16.1 (11.5-15.0); RED BLOOD CELL COUNT(AUTO) 3.09 MIL/uL (4.0-5.2); RETICULOCYTE COUNT 4.2 % (0.6-2.5); WHITE BLOOD COUNT (AUTO) 8.2 K/uL (4.3-11.0)
[2017-01-11 07:46] LABS: ALBUMIN 2.7 g/dL (3.4-5.0); BILIRUBIN,TOTAL 0.4 mg/dL (0.2-1.0); CALCIUM, SERUM 8.8 mg/dL (8.5-10.1); CREATININE 5.1 mg/dL (0.6-1.3); POTASSIUM 3.6 mmol/L (3.5-5.1); TOTAL PROTEIN, SERUM 7.5 g/dL (6.4-8.2)
[2017-01-11 07:54] LABS: THYROID STIMULATING HORMONE 0.017 uIU/mL (0.358-3.74)
[2017-01-11 08:00] VITALS: BP 141/86
[2017-01-11] MEDS: FERROUS SULFATE UDC 300 MG/5 ML UDC GT SCH (08:49)
[2017-01-11] MEDS: PREGABALIN 25 MG CAPSULE PO SCH ×3 (08:49→17:38)
[2017-01-11] MEDS: DOCUSATE SODIUM LIQ 100 MG/10 ML UDC GT SCH ×2 (08:49→17:38)
[2017-01-11] MEDS: METOCLOPRAMIDE HCL 10 MG/2 ML VIAL IV SCH ×2 (08:50→17:38)
[2017-01-11] MEDS: LIOTHYRONINE SODIUM (25 MCG) 25 MCG TABLET GT SCH (08:50)
[2017-01-11] MEDS: LOSARTAN POTASSIUM 50 MG TABLET GT SCH (08:50)
[2017-01-11] MEDS: NIFEdipine (10MG) 10 MG CAPSULE GT SCH ×3 (08:50→17:37)
[2017-01-11] MEDS: PANTOPRAZOLE 40 MG TABLET.DR PO SCH (08:51)
[2017-01-11] MEDS: CLONIDINE HCL 0.1 MG TABLET GT SCH (08:51)
[2017-01-11] MEDS: CARVEDILOL 12.5 MG TABLET GT SCH (08:51)
[2017-01-11] MEDS: VIT B CMPLX 3/FA/VIT C/BIOTIN 1 TAB TABLET GT SCH (08:51)
[2017-01-11] MEDS: FOLIC ACID 1 MG TABLET GT SCH (08:51)
[2017-01-11] MEDS: MINOXIDIL (2.5MG) 2.5 MG TABLET GT SCH (08:52)
[2017-01-11] MEDS: POLYETHYLENE GLYCOL 3350 17 GM POWD.PACK GT SCH (08:52)
[2017-01-11] MEDS: MUPIROCIN OINT 2% 22 GM TUBE SCH (09:00)
[2017-01-11] MEDS ORDERED: ZOLPIDEM TARTRATE 5 MG TABLET GT PRN (13:44)
[2017-01-11] MEDS: ACETAMINOPHEN 650 MG/20.3 ML UDC GT PRN ×2 (14:26→18:39)
[2017-01-11 16:00] VITALS: BP 113/63
[2017-01-11 17:37] VITALS: BP 113/63
--- NOTE | 2017-01-11 19:12 | NUR ---
pt in stable condition.scheduled to be d/c to SNF.all m.d orders noted .endorsed to next shift
--- NOTE | 2017-01-11 19:32 | NUR ---
MS-1/CENTER HOLE REAMER REPORT GIVEN TO EMS FOR TRANSPORT BACK TO [facility]. REPORT TO VASILIY FLOR BY JOHNATHAN FLOR. VSS AFEBRILE.
[2017-01-12 07:14] LABS: VIT D, 25-HYDROXY 36.2 ng/mL (30.0-100.0)
[2017-01-12] MEDS ORDERED: PANTOPRAZOLE 40 MG/PACK PACK GT SCH (09:00)
[2017-01-12 14:23] LABS: HEPATITIS A AB, IgM Negative (Negative); HEPATITIS B CORE AB, IgM Negative (Negative); HEPATITIS C VIRUS AB <0.1 s/co ratio (0.0-0.9)
== END 2017-01-11 19:42 | DRG 720 ==
LOC: ER 12:47 → TELE1 16:16 → TELE-TD 17:59 → TELE1 01-04 08:59 → MEDSG1 01-09 10:17
PROVIDERS: ADMIT Family Medicine; ATTEND Family Medicine
PROC: 5A1D60Z (ICD-10-PCS; principal; 2017-01-01)
PROC: 05H533Z Insertion of Infusion Device into Right Subclavian Vein, Percutaneous Approach (ICD-10-PCS; 2017-01-02)
DX: A41.9 Sepsis, unspecified organism (principal); I50.23 Acute on chronic systolic (congestive) heart failure; J96.10 Chronic respiratory failure, unspecified whether with hypoxia or hypercapnia; R53.2 Functional quadriplegia; E44.0 Moderate protein-calorie malnutrition; N18.6 End stage renal disease; L89.152 Pressure ulcer of sacral region, stage 2; E11.22 Type 2 diabetes mellitus with diabetic chronic kidney disease; D68.59 Other primary thrombophilia; I13.2 Hypertensive heart and chronic kidney disease with heart failure and with stage 5 chronic kidney disease, or end stage renal disease; Z93.0 Tracheostomy status; E03.9 Hypothyroidism, unspecified; E87.6 Hypokalemia; N39.0 Urinary tract infection, site not specified; Z99.2 Dependence on renal dialysis; B96.20 Unspecified Escherichia coli [E. coli] as the cause of diseases classified elsewhere; E83.52 Hypercalcemia; R13.10 Dysphagia, unspecified; Z22.322 Carrier or suspected carrier of Methicillin resistant Staphylococcus aureus; Z87.891 Personal history of nicotine dependence; Z86.73 Personal history of transient ischemic attack (TIA), and cerebral infarction without residual deficits; Z93.1 Gastrostomy status; E88.09 Other disorders of plasma-protein metabolism, not elsewhere classified; Z68.1 Body mass index [BMI] 19.9 or less, adult; D63.8 Anemia in other chronic diseases classified elsewhere; E83.9 Disorder of mineral metabolism, unspecified; L89.622 Pressure ulcer of left heel, stage 2; Q78.9 Osteochondrodysplasia, unspecified; T14.8 Other injury of unspecified body region; X58.XXXA Exposure to other specified factors, initial encounter; Y93.9 Activity, unspecified; Y92.129 Unspecified place in nursing home as the place of occurrence of the external cause; Y99.9 Unspecified external cause status
CPT/HCPCS: 31720; 36415; 36569; 71010-TC; 74000-TC; 80048-TC; 80053-TC; 80074; 80076-TC; 81000-TC; 82306; 82330; 82652; 82728-TC; 82746; 82784; 82962-TC; 83021; 83540-TC; 83605-TC; 83615-TC; 83735-TC; 83880; 83970; 84100-TC; 84155; 84165; 84439-TC; 84443-TC; 84550-TC; 85025-TC; 85045-TC; 85660; 85730-TC; 86334; 87040-TC; 87081-TC; 87086-TC; 87186-TC; 87400; 90935-TC; 92526; 92611-TC; 93971-TC; 94640-TC; 94664-TC; 94760-TC; 94799-TC; A4606; A4624; A6402; J0456; J0696; J0885; J1644; J1815; J2270; J2405; J2430; J2765; J3370; J7030; J7040; J7050; J7060; L8501; Z7610

== ENCOUNTER 2017-02-02 13:51 | Inpatient (IN) | payer MEDICAID, OTHER ==
[~2017-02-02] VITALS: Ht 175.3 cm; Wt 63.5 kg
[~2017-02-02 13:51] MED LIST: ACET650S26 GT; BLOO-668 IN; CARV25TA2 GT; CLON0.1T GT; CLON0.3P TD; CLON0.5T GT; DOCU50LI GT; ERGO50003 GT; FERR300L GT; FOLI0.8T2 GT; FOLI1TAB16 GT; HEPA10009 SQ; HYDR-3976 GT; HYDR100T27 GT; INSU100I19 SQ; LIOT25TA9 GT; LOSA100T15 GT; MINO2.5T2 GT; NIFE20CA GT; NUTR100037 GT; OMEP40CA37 GT; POLY17PO4 GT
--- NOTE | 2017-02-02 13:59 | NUR ---
PT KEN GONCALVES C/O HTN FROM [facility], BP 220-240 SYSTOLIC. PT YELLING AND SCREAMING IN PAIN, UNABLE TO LOCALIZE D/T MENTAL STATUS, WHICH IS BASELINE. RESP EVEN UNLABORED. SKIN WARM NONDIAPHORETIC. NO NEURO DEFICITS NOTED. IN ER BED 14 ON MONITOR. Addendum: 02/02/17 at 1435 by HFOX CORRECTION: ONCE PT STOPPED SCREAMING, SHE WAS ABLE TO LOCALIZE PAIN TO R EAR.
[2017-02-02] MEDS ORDERED: CLONIDINE HCL 0.1 MG TABLET ONE ×2 (14:16→14:22)
[2017-02-02] MEDS ORDERED: NIFEdipine (10MG) 10 MG CAPSULE ONE (14:16)
[2017-02-02 14:28] LABS: BASOPHILS # (AUTO) 0.2 /CMM (0.0-0.2); BASOPHILS % (AUTO) 1.6 % (0.0-2.0); EOSINOPHILS # (AUTO) 0.4 /CMM (0.0-0.7); EOSINOPHILS % (AUTO) 3.8 % (0.0-6.0); HEMATOCRIT 43 % (33-45); HEMOGLOBIN 13.2 g/dL (11.5-14.8); LYMPHOCYTES # (AUTO) 1.8 /CMM (0.8-4.8); LYMPHOCYTES % (AUTO) 16.6 % (20.0-44.0); MEAN CORPUSCULAR HEMOGLOBIN 32 PG (26.0-33.0); MEAN CORPUSCULAR HGB CONC 31 g/dl (31.0-36.0); MEAN CORPUSCULAR VOLUME 101 fL (82-100); MONOCYTES # (AUTO) 0.6 /CMM (0.1-1.30); MONOCYTES % (AUTO) 5.6 % (2.0-12.0); NEUTROPHILS # (AUTO) 7.9 /CMM (1.8-8.9); NEUTROPHILS % (AUTO) 72.4 % (43.0-81.0); PLATELET COUNT (AUTO) 578 /CMM (150-450); RDW COEFFICIENT OF VARIATION 15.9 (11.5-15.0); WHITE BLOOD COUNT (AUTO) 10.9 K/uL (4.3-11.0)
[2017-02-02] MEDS ORDERED: MORPHINE SULFATE INJ 2 MG/ML DISP.SYRIN IV ONE (14:30)
[2017-02-02] MEDS ORDERED: NIFEdipine (10MG) 10 MG CAPSULE PO ONE (14:30)
[2017-02-02] MEDS ORDERED: CLONIDINE HCL 0.1 MG TABLET PO ONE (14:30)
[2017-02-02] MEDS ORDERED: diphenhydrAMINE HCL 50 MG/ML VIAL IV ONE (14:30)
[2017-02-02] MEDS ORDERED: MORPHINE SULFATE INJ 4 MG/ML DISP.SYRIN ONE (14:34)
[2017-02-02] MEDS ORDERED: diphenhydrAMINE HCL 50 MG/ML VIAL ONE (14:34)
[2017-02-02 14:38] LABS: CALCIUM, SERUM 9.3 mg/dL (8.5-10.1); CREATININE 2.5 mg/dL (0.6-1.3)
--- NOTE | 2017-02-02 14:45 | NUR ---
CALLED NURSING SUP. FOR TELE BED
[2017-02-02 14:47] LABS: INR 1.07 (0.87-1.13); PROTHROMBIN TIME 11.1 SECS (9.5-12.7); TROPONIN I 0.168 ng/mL (0.00-0.056)
[2017-02-02] MEDS ORDERED: LORAZEPAM INJ 2 MG/ML VIAL IV ONE (15:00)
[2017-02-02] MEDS ORDERED: HALOPERIDOL LACTATE INJ 5 MG/ML VIAL IM ONE (15:00)
[2017-02-02] MEDS ORDERED: INSU100V3 SQ (15:07)
[2017-02-02 15:15] LABS: APPEARANCE,URINE Turbid (CLEAR); BILIRUBIN,URINE Negative (NEGATIVE); BLOOD, URINE Large Ery/uL (NEGATIVE); COLOR,URINE Yellow (YELLOW); KETONES,URINE Negative (NEGATIVE); LEUKOCYTE ESTERASE ,URINE Small (NEGATIVE); NITRITE, URINE Negative (NEGATIVE); PH,URINE 8.5 (5.0-8.0); PROTEIN,URINE >=300 mg/dl (NEGATIVE); UROBILINOGEN,URINE 0.2 EU/dL (0.2)
[2017-02-02 15:17] LABS: UGLUCOSE 500 MG/DL mg/dL (NEGATIVE)
--- NOTE | 2017-02-02 15:17 | NUR ---
PT WAS YELLING. REPOSITIONED FOR COMFORT AND PT BECAME QUIET. PER MD, OK TO HOLD ATIVAN AND HALDOL LONG PT REMAINS COMFORTABLE AND QUIET.
[2017-02-02 15:39] LABS: SQUAMOUS EPITHELIAL CELL,UR Few /HPF (None Seen)
[2017-02-02 15:40] LABS: BACTERIA,URINE 3+ /HPF (None Seen); RBC,URINE 81-150 /HPF (0-2)
[2017-02-02] MEDS ORDERED: HALOPERIDOL LACTATE INJ 5 MG/ML VIAL ONE (15:41)
[2017-02-02] MEDS ORDERED: LORAZEPAM INJ 2 MG/ML VIAL ONE (15:42)
--- NOTE | 2017-02-02 16:06 | NUR ---
REGINALDO PAGED, FIREFIGHTER TYPE ONE
--- NOTE | 2017-02-02 16:07 | NUR ---
RESTING QUIETLY IN BED, NAD NOTED. PT NO LONGER YELLING OR IN ANY DISTRESS.
--- NOTE | 2017-02-02 16:11 | NUR ---
MONITORING CLOSELY FOR ALLERGIC REACTIONS TO MORPHINE AND/OR ATIVAN. MD IS AWARE OF LISTED ALLERGIES. PT WAS PREMEDICATED WITH BENADRYL. NO ALLERGIC REACTIONS NOTED.
[2017-02-02] MEDS ORDERED: CEFTRIAXONE 1GM BAG (ER ONLY) 50 ML IV ONE (16:26)
[2017-02-02] MEDS ORDERED: IV SET PRIMARY 1 EA INFUS.SET MC ONE (16:26)
[2017-02-02] MEDS ORDERED: hydrALAZINE HCL IV 20 MG VIAL ONE (16:26)
--- NOTE | 2017-02-02 16:29 | NUR ---
[facility] REPAGED
[2017-02-02] MEDS ORDERED: CEFTRIAXONE 1GM BAG (ER ONLY) 1 GM/50 ML PIGGYBACK IV ONE (16:30)
[2017-02-02] MEDS ORDERED: hydrALAZINE HCL IV 20 MG VIAL IV ONE (16:30)
--- NOTE | 2017-02-02 16:35 | NUR ---
REPORT GIVEN TO VIOLET FLOR FOR ADMISSION
--- NOTE | 2017-02-02 16:41 | NUR ---
DR ANDREWS SPEAKING WITH DR ROMAN
--- NOTE | 2017-02-02 17:00 | NUR ---
STACK ATTENDANT NOTES PATIENT ON FLOOR. NO SOB OR DISTRESS NOTED AT THIS TIME. PATIENT REPORTS PAIN IN THE RIGHT EAR. WILL TELL MD. VITALS CHECKED AND RECORDED. WILL FOLLOW UP WITH BP MEDS WHEN ABLE. PATIENT ORIENTED TO ROOM AND CALL LIGHT. HEAR RATE 88 SR. BED IN A LOW POSITION, CALL LIGHT WITHIN PATIENT REACH. WILL CONTINUE TO MONITOR.
--- NOTE | 2017-02-02 17:03 | NUR ---
PT TRANSPORTED TO [facility] IN STABLE CONDITION
[2017-02-02] MEDS ORDERED: MAGNESIUM HYDROXIDE 30 ML UDC PO PRN (17:30)
[2017-02-02] MEDS ORDERED: ACETAMINOPHEN 325 MG TABLET PO PRN (17:30)
[2017-02-02] MEDS ORDERED: MAG HYDROX/AL HYDROX/SIMETH 30 ML UDC PO PRN (17:30)
[2017-02-02] MEDS ORDERED: ONDANSETRON HCL/PF 4 MG/2 ML VIAL IVP PRN (17:30)
[2017-02-02] MEDS: CLONIDINE HCL 0.1 MG TABLET PO PRN (17:50)
[2017-02-02] MEDS ORDERED: INSULIN REGULAR, HUMAN 100 UNIT/ML 3 ML VIAL SQ PRN (18:00)
[2017-02-02 18:51] VITALS: BP 182/107
--- NOTE | 2017-02-02 19:02 | NUR ---
SEWER AND CUTTER FINGER BUFF MATERIAL CLOSING NOTES NO SIGNIFICANT CHANGES IN PATIENT CONDITION THROUGHOUT THE SHIFT. NO SOB OR DISTRESS NOTED. PATIENT DENIES PAIN. HEART RATE SR IN THE 80S. GTUBE FEEDING NOT YET AVAILABLE ON FLOOR. WILL ENDORSE FOR CASSI.
[2017-02-02 20:00] VITALS: BP 192/114
--- NOTE | 2017-02-02 20:00 | NUR ---
RECEIVED PATIENT IN BED, ASLEEP, AROUSEABLE BY VOICE AND TOUCH, ANSWERS TO YES OR NO QUESTIONS, NO SOB, NO RESPIRATORY DISTRESS, TOLERATING ROOM AIR, 02 SAT 100%, RIGHT CW HD CATHETER SECURED WITH DRESSING, RIGHT AC #18 PATENT AND FLUSHED. PEG TUBE AUSCULTATED, ZERO RESIDUAL, BEING MONITORED FOR ELEVATED BP. KEPT SAFE AND COMFORTABLE, CALL LIGHT WITHIN REACH.
[2017-02-02] MEDS: RENAL NOVASOURCE 1,000 ML BOTTLE GT PRN (20:55)
[2017-02-02] MEDS: clonazePAM 0.5 MG TABLET GT SCH (21:11)
[2017-02-02] MEDS: hydrALAZINE HCL 50 MG TABLET GT SCH (21:21)
[2017-02-02] MEDS: CARVEDILOL 12.5 MG TABLET PO SCH (21:21)
[2017-02-02] MEDS: HEPARIN SODIUM, PORCINE 5000 UNITS/1 ML VIAL SQ SCH (21:22)
[2017-02-02] MEDS: LIOTHYRONINE SODIUM (25 MCG) 25 MCG TABLET GT SCH (21:26)
[2017-02-02] MEDS: INSULIN DETEMIR 100 UNIT/ML CARTRIDGE SQ SCH (22:19)
[2017-02-03] MEDS: BLOOD SUGAR DIAGNOSTIC 1 EACH STRIP IN PRN ×2 (00:01→05:45)
[2017-02-03] MEDS: CLONIDINE HCL 0.1 MG TABLET PO PRN ×3 (02:00→23:45)
--- NOTE | 2017-02-03 02:03 | NUR ---
GIVEN CATAPRESS 0.2 MG VIA GT, FOR BP OF 192/110, WILL CONTINUE TO MONITOR.
[2017-02-03 03:53] LABS: BASOPHILS # (AUTO) 0.1 /CMM (0.0-0.2); BASOPHILS % (AUTO) 1.6 % (0.0-2.0); EOSINOPHILS # (AUTO) 0.3 /CMM (0.0-0.7); EOSINOPHILS % (AUTO) 3.4 % (0.0-6.0); HEMATOCRIT 40 % (33-45); HEMOGLOBIN 13.2 g/dL (11.5-14.8); LYMPHOCYTES # (AUTO) 1.4 /CMM (0.8-4.8); LYMPHOCYTES % (AUTO) 15.5 % (20.0-44.0); MEAN CORPUSCULAR HEMOGLOBIN 33 PG (26.0-33.0); MEAN CORPUSCULAR HGB CONC 33 g/dl (31.0-36.0); MEAN CORPUSCULAR VOLUME 100 fL (82-100); MONOCYTES # (AUTO) 0.4 /CMM (0.1-1.30); NEUTROPHILS # (AUTO) 6.6 /CMM (1.8-8.9); NEUTROPHILS % (AUTO) 74.5 % (43.0-81.0); PLATELET COUNT (AUTO) 495 /CMM (150-450); RDW COEFFICIENT OF VARIATION 16.5 (11.5-15.0); RED BLOOD CELL COUNT(AUTO) 3.98 MIL/uL (4.0-5.2); WHITE BLOOD COUNT (AUTO) 8.9 K/uL (4.3-11.0)
[2017-02-03 04:09] LABS: CALCIUM, SERUM 9.4 mg/dL (8.5-10.1); CREATININE 2.5 mg/dL (0.6-1.3); PHOSPHORUS 4.2 mg/dL (2.5-4.9); POTASSIUM 3.8 mmol/L (3.5-5.1)
[2017-02-03] MEDS: hydrALAZINE HCL 50 MG TABLET GT SCH ×3 (04:50→20:15)
[2017-02-03] MEDS: HEPARIN SODIUM, PORCINE 5000 UNITS/1 ML VIAL SQ SCH ×3 (04:51→20:39)
--- NOTE | 2017-02-03 06:02 | NUR ---
BG 69 MG/DL, NO S/S OF HYPOGLYCEMIA, AROUSEABLE BY VOICE AND TOUCH, GIVEN ORANGE JUICE 8 OZ, WILL RECHECK BG IN 30 MINUTES.
--- NOTE | 2017-02-03 06:34 | NUR ---
RECHECK BLOOD SUGAR AFTER GIVING ORANGE JUICE 8OZ VIA GT, BG 95MG/DL.
--- NOTE | 2017-02-03 06:40 | NUR ---
PATIENT IS ALERT AND AWAKE, OPENS EYES, NO RESPIRATORY DISTRESS, NO SOB, TOLERATING ROOM AIR, COMPLAINS OF PAIN BY CRYING DURING NURSING CARE, CALMS WHEN NOT BEING REPOSITIONED, BP IS BEING MONITORED CLOSELY, MOSTLY ELEVATED DURING SHIFT, GIVEN PRN AND ROUTINE BP MEDICATIONS. ALL DUE MEDICATIONS GIVEN, CALL LIGHT WITHIN REACH.
--- NOTE | 2017-02-03 07:30 | NUR ---
MS/RN OPENING NOTE PT. IS LYING IN BED SLEEPING. NO SOB, NO S/S OF DISTRESS. PT. HAS NOVASOURCE RUNNING AT 40 ML/HR. IV ACCESS ON RIGHT UPPER ARM MIDLINE. BED IS IN LOW POSITION, 2 SIDE RAILS UP, AND CALL LIGHT WITHIN REACH. WILL CONTINUE TO ASSESS AND MONITOR PT.
--- NOTE | 2017-02-03 07:45 | NUR ---
MS/RN OPENING NOTE PT. IS IN BED SLEEPING. PER SUPERVISOR PICKING CREW NURSE REPORT PT. IS A&OX1. NO S/S OF SOB, TOLERATING BREATHING ON ROOM AIR, AND NO S/S OF DISTRESS. PT. HAS NOVASOURCE RUNNING AT 40 ML/HR. BED IS IN LOW POSITION, 2 SIDE RAILS UP, CALL LIGHT WITHIN REACH, WILL CONTINUE TO ASSESS AND MONITOR.
[2017-02-03 08:00] VITALS: BP 171/107
--- NOTE | 2017-02-03 10:07 | NUR ---
WOUND CARE CONSULT: PT PRESENTS EXTREMELY THIN AND BONY WITH SCARRING TO HEELS AND SACRUM. PT INCONTINENT OF URINE. ALL SKIN PROTECTION RECOMMENDATIONS DISCUSSED WITH NURSING STAFF. PT TO BE PLACED ON OLMAN ISOFLEX LOW AIRLOSS BED. SKIN TO BE KEPT CLEAN AND DRY. IN AGREEMENT WITH PLAN OF CARE. Addendum: 02/03/17 at 1008 by TATE SMITH WNDNU Amended: Links added.
[2017-02-03] MEDS: DOCUSATE SODIUM LIQ 100 MG/10 ML UDC GT SCH ×2 (10:14→16:43)
[2017-02-03] MEDS: FERROUS SULFATE UDC 300 MG/5 ML UDC GT SCH (10:14)
[2017-02-03] MEDS: LOSARTAN POTASSIUM 50 MG TABLET GT SCH (10:15)
[2017-02-03] MEDS: PANTOPRAZOLE 40 MG/PACK PACK GT SCH (10:15)
[2017-02-03] MEDS: MINOXIDIL (2.5MG) 2.5 MG TABLET GT SCH (10:16)
[2017-02-03] MEDS: VIT B CMPLX 3/FA/VIT C/BIOTIN 1 TAB TABLET PO SCH (10:17)
[2017-02-03] MEDS: FOLIC ACID 1 MG TABLET GT SCH (10:17)
[2017-02-03] MEDS: clonazePAM 0.5 MG TABLET GT SCH ×2 (10:19→20:16)
[2017-02-03] MEDS: CARVEDILOL 12.5 MG TABLET PO SCH ×2 (10:21→20:16)
[2017-02-03] MEDS: LIOTHYRONINE SODIUM (25 MCG) 25 MCG TABLET GT SCH ×2 (10:23→20:16)
[2017-02-03] MEDS: NIFEdipine (10MG) 10 MG CAPSULE GT SCH ×2 (10:25→16:43)
[2017-02-03] MEDS: HYDROCODONE/APAP 5/325MG 1 EACH TABLET PO PRN ×2 (10:40→20:51)
[2017-02-03] MEDS: Z GUARD REMEDY 2 OZ OINT TP PRN (10:45)
[2017-02-03] MEDS: INSULIN DETEMIR 100 UNIT/ML CARTRIDGE SQ SCH ×2 (10:53→20:49)
--- NOTE | 2017-02-03 12:42 | NUR ---
MS/BOOKKEEPER ASSISTANT CALLED SPOKE WITH PT.'S MOTHER, ELIJAH, AND PROVIDED AND UPDATE ON HER DAUGHTER BLOOD PRESSURE AND SCHEDULED SWALLOW EVALUATION BY SPEECH THERAPIST FOR TODAY, AND ANSWERED ALL QUESTIONS. ELIJAH'S PHONE NUMBER [phone].
[2017-02-03 13:00] VITALS: BP 170/108
[2017-02-03 15:00] VITALS: BP 146/96
[2017-02-03 16:00] VITALS: BP 161/97
--- NOTE | 2017-02-03 16:00 | NUR ---
MS/RN SPEECH THERAPY PT. HAD A SWALLOW EVALUATION WITH SPEECH THERAPIST. PER SPEECH THERAPIST PT. CAN HAVE PUREED FOODS, WITH NECTAR RICH LIQUIDS, NO THIN LIQUIDS FOR ORAL GRATIFICATION UPON PT. REQUEST AT THIS TIME.
[2017-02-03] MEDS ORDERED: IV SET PRIMARY PUMP SET 1 EA INFUS.SET MC ONE (16:34)
[2017-02-03] MEDS: CEFTRIAXONE 1 G in IV D5W 50 ML IV SCH (16:42)
--- NOTE | 2017-02-03 19:49 | NUR ---
MS/RN OPENING NOTES PATIENT IN BED, CALLING AND ASKING FOR SOME FOOD. INFORMED PATIENT NEED ORAL GRATIFICATION AND ON DIABETIC DIET. INFORM DIETARY AND GAVE SOME JELLO SUGAR FREE. FED PATIENT AND ATE FOOD. KEPT COMFORTABLE. INFORM [employer] Power TechnologiesUBE FEEDING TO BE TURNED ON AT 1999. ON ISOLATION MRSA. WILL CONTINUE TO PROVIDE CARE.
[2017-02-03 20:00] VITALS: BP 183/100
--- NOTE | 2017-02-03 20:00 | NUR ---
MS/RN CLOSING NOTE PT. IS IN BED AWAKE, AND A&OX1-2. NO S/S OF DISTRESS, NO SOB, BREATHING ON ROOM AIR UNLABORED. PT. HAS IV ACCESS ON RIGHT UPPER ARM MIDLINE, AND GASTROINTESTINAL TUBE WITH NOVASOURCE PAUSED, AND TO BE CONTINUES AT 40 ML/HR. PT. BED IS IN LOW POSITION, 2 SIDE RAILS UP, AND CALL LIGHT WITHIN REACH. WILL ENDORSE REPORT TO CONCRETE BUSTER OPERATOR NURSE. CALLED PT.'S MOTHER ELIJAH. SPOKE WITH PT'.S MOTHER ELIJAH OVER THE PHONE TO PROVIDE AN UPDATE ABOUT SWALLOW EVALUATION FROM TODAY, AND HEMODIALYSIS TOMORROW. GAVE THE PHONE TO PT. TO SPEAK WITH HER MOTHER OVER THE PHONE.
[2017-02-03 20:17] VITALS: BP 183/100
--- NOTE | 2017-02-03 23:27 | NUR ---
ms/rn notes patient b/p take repeat at 171/99. will give prn b/p med for b/p greater than 160 and complained of right ear pain/discomfort will check med for pain .
[2017-02-03] MEDS: ACETAMINOPHEN 650 MG/20.3 ML UDC GT PRN ×2 (23:44→23:45)
[2017-02-04] MEDS: ZOLPIDEM TARTRATE 5 MG TABLET PO PRN (00:46)
[2017-02-04] MEDS: RENAL NOVASOURCE 1,000 ML BOTTLE GT PRN ×2 (02:36→02:40)
[2017-02-04 02:50] VITALS: BP 147/97
[2017-02-04] MEDS: hydrALAZINE HCL 50 MG TABLET GT SCH ×3 (05:18→21:16)
[2017-02-04] MEDS: HEPARIN SODIUM, PORCINE 5000 UNITS/1 ML VIAL SQ SCH ×3 (05:21→21:00)
--- NOTE | 2017-02-04 06:23 | NUR ---
ms/rn notes' patient able to sleep 4 to 5 hours. no s/s of distress or discomfort. extensive assistance provided. monitoring for any pain or inability to sleep. can respond with nods and good eye contact. will continue to monitor. will endorse to am rn regarding continuity of care.
--- NOTE | 2017-02-04 07:33 | NUR ---
MS RN OPENING RECEIVED PATIENT SLEEPING A/OX1-2 AT THIS TIME. NO S/S DIFFICULTY BREATHING, PAIN, OR SOB. PATIENT POSITIONED IN COMFORT WITH HEELS AND ELBOWS OFFLOADED. HOB ELEVATED AND CALL LIGHT IN REACH, BED LOWERED AND LOCKED, RAILS UPX3 FOR SAFETY AND WILL ROUND Q2H OR LESS PER NEEDS. BED ALARM ON
[2017-02-04 08:00] VITALS: BP 152/92
[2017-02-04] MEDS: NIFEdipine (10MG) 10 MG CAPSULE GT SCH ×2 (08:59→17:07)
[2017-02-04] MEDS: DOCUSATE SODIUM LIQ 100 MG/10 ML UDC GT SCH ×2 (08:59→17:06)
[2017-02-04] MEDS: FERROUS SULFATE UDC 300 MG/5 ML UDC GT SCH (08:59)
[2017-02-04] MEDS: PANTOPRAZOLE 40 MG/PACK PACK GT SCH (09:00)
[2017-02-04] MEDS: VIT B CMPLX 3/FA/VIT C/BIOTIN 1 TAB TABLET PO SCH (09:00)
[2017-02-04] MEDS: CARVEDILOL 12.5 MG TABLET PO SCH ×2 (09:00→21:17)
[2017-02-04] MEDS: clonazePAM 0.5 MG TABLET GT SCH ×2 (09:00→21:17)
[2017-02-04] MEDS: HYDROCODONE/APAP 5/325MG 1 EACH TABLET PO PRN ×2 (09:00→15:56)
[2017-02-04] MEDS: MINOXIDIL (2.5MG) 2.5 MG TABLET GT SCH (09:00)
[2017-02-04] MEDS: LOSARTAN POTASSIUM 50 MG TABLET GT SCH (09:00)
[2017-02-04] MEDS: FOLIC ACID 1 MG TABLET GT SCH (09:02)
[2017-02-04] MEDS: Z GUARD REMEDY 2 OZ OINT TP PRN (09:08)
[2017-02-04] MEDS: LIOTHYRONINE SODIUM (25 MCG) 25 MCG TABLET GT SCH ×2 (09:08→21:17)
[2017-02-04] MEDS: INSULIN DETEMIR 100 UNIT/ML CARTRIDGE SQ SCH ×2 (09:19→21:21)
--- NOTE | 2017-02-04 10:51 | NUR ---
MS RN NOTES MESSAGE TO DR ROMAN FOR BENADRYL ORDER FOR PATIENT ITCHINESS. PER MOTHER THIS HELPS ALOT AT [facility]
--- NOTE | 2017-02-04 11:00 | NUR ---
MS RNNOTES PER DR JESSIE GOVEA ORDER IV BENADRYL 50MG Q6H PRN
[2017-02-04] MEDS: diphenhydrAMINE HCL 50 MG/ML VIAL IV PRN (12:07)
[2017-02-04] MEDS: CLONIDINE HCL 0.1 MG TABLET PO PRN (12:09)
[2017-02-04] MEDS: BLOOD SUGAR DIAGNOSTIC 1 EACH STRIP IN PRN (12:10)
[2017-02-04 13:00] VITALS: BP 155/92
--- NOTE | 2017-02-04 13:26 | NUR ---
MS RN NOTES PATIENT TOLERATING PO DIET WELL. MD AWARE OK TO DC TUBE FEEDINGS AND START PO DIET. ACCUCHECKS CHANGED TO ACHS PER NEW DIET ORDER
[2017-02-04 15:02] LABS: BASOPHILS % (AUTO) 0.8 % (0.0-2.0); EOSINOPHILS # (AUTO) 0.2 /CMM (0.0-0.7); EOSINOPHILS % (AUTO) 4.2 % (0.0-6.0); HEMATOCRIT 37 % (33-45); LYMPHOCYTES % (AUTO) 19.6 % (20.0-44.0); MEAN CORPUSCULAR HEMOGLOBIN 33 PG (26.0-33.0); MEAN CORPUSCULAR HGB CONC 33 g/dl (31.0-36.0); MEAN CORPUSCULAR VOLUME 100 fL (82-100); MONOCYTES # (AUTO) 0.4 /CMM (0.1-1.30); NEUTROPHILS # (AUTO) 3.6 /CMM (1.8-8.9); NEUTROPHILS % (AUTO) 67.4 % (43.0-81.0); PLATELET COUNT (AUTO) 463 /CMM (150-450); RDW COEFFICIENT OF VARIATION 16.6 (11.5-15.0); RED BLOOD CELL COUNT(AUTO) 3.69 MIL/uL (4.0-5.2); WHITE BLOOD COUNT (AUTO) 5.3 K/uL (4.3-11.0)
[2017-02-04 15:19] LABS: CALCIUM, SERUM 8.7 mg/dL (8.5-10.1); CREATININE 2.3 mg/dL (0.6-1.3); POTASSIUM 4.1 mmol/L (3.5-5.1)
[2017-02-04 16:00] VITALS: BP 154/102
[2017-02-04 16:10] VITALS: BP 154/102
[2017-02-04] MEDS: BLOOD SUGAR DIAGNOSTIC 1 EACH STRIP IN SCH ×2 (17:06→21:31)
[2017-02-04] MEDS: CEFTRIAXONE 1 G in IV D5W 50 ML IV SCH (17:06)
[2017-02-04] MEDS: CLONIDINE HCL 0.3 MG/24H PTWK 1 EA PATCH TD SCH (17:12)
[2017-02-04] MEDS ORDERED: DEXTROSE 50%-WATER 50 ML DISP.SYRIN ONE (17:13)
--- NOTE | 2017-02-04 17:36 | NUR ---
MS RN NOTES PATIENT BLOOD SUGAR 59 AND REPEAT 57. ATTEMPTED IV DEXTROSE BUT PATIENT IV BLEW. UNABLE TO ACCESS NEW IV SITE "HARD STICK" PATIENT ALERT AND TOLERATED PO SUGAR AND IS BEING FED DINNER. WILL RECHECK BLOOD SUGAR AND ASK MD IF MIDLINE OKAY
--- NOTE | 2017-02-04 18:09 | NUR ---
MS RN NOTES PER DR JESSIE GOVEA TO ORDER MIDLINE. AND PER MD ROMAN CALL [facility] TO ASK WHICH AX WOULD LIKE FOR ESBL URINE. PER DR CHILDS ORDER [facility] TO DOSE.
[2017-02-04] MEDS ORDERED: MEROPENEM 1 G in IV NS 0.9% 100 ML IV SCH (18:30)
--- NOTE | 2017-02-04 18:31 | NUR ---
MS RN CLOSING PATIENT STABLE AT THIS TIME. TURNED Q2H AND HEELS AND ELBOWS OFFLOADED THROUGHOUT THE DAY. PATIENT BS STABLE AT THIS TIME. PENDING MIDLINE PLACEMENT FOR MERREM AX. PATIENT IN POSITION OF COMFORT, TV ON FOR COMFORT AND CALLED PATIENT MOTHER DUE TO PATIENT REQUEST. BED LOWERED AND LOCKED, AND RAILS UPX3 FOR SAFETY. WILL ENDORSE CARE TO RN FOR CASSI
--- NOTE | 2017-02-04 19:10 | NUR ---
RN NOTE RECEIVED REPORT. PT AWAKE, APPEARS COMFORTABLE - ON PHONE WITH FAMILY MEMBER. NO S/S OF ANY DISTRESS AT THIS TIME, AWAITING MIDLINE PLACEMENT FROM BASIA DOSS. SAFETY AND COPMFORT MEASURES RENDERED. CALL LIGHT IN REACH, WILL CONT TO MONITOR CLOSELY.
[2017-02-04 20:00] VITALS: BP 171/101
--- NOTE | 2017-02-04 21:30 | NUR ---
RN NOTE PT REFUSING HEPARIN DESPITE EDUCATION AND TEACHING X3, SHE SHAKES HER HEAD NO.
[2017-02-04] MEDS ORDERED: SECONDARY IV SET 1 EA INFUS.SET MC ONE (23:10)
[2017-02-04] MEDS: MEROPENEM 500 MG in IV NS 0.9% 50 ML IV SCH (23:10)
[2017-02-04] MEDS ORDERED: IV NS 0.9% 250 ML IV ONE (23:10)
[2017-02-04] MEDS ORDERED: IV SET PRIMARY PUMP SET 1 EA INFUS.SET MC ONE (23:10)
--- NOTE | 2017-02-04 23:11 | NUR ---
BASIA NOTE OSCAR GIVING MERREM IV NOW, MIDLINE HAS BEEN PLACED IN PRABHU BY ROMARIO FLOR. ABX WAS DELAYED D/T NO IV ACCESS. Addendum: 02/05/17 at 0655 by JAREN ANTUNEZ RN JOAQUIM Madera
[2017-02-05] MEDS: hydrALAZINE HCL 50 MG TABLET GT SCH ×3 (04:32→21:49)
[2017-02-05] MEDS: HEPARIN SODIUM, PORCINE 5000 UNITS/1 ML VIAL SQ SCH ×3 (04:32→21:51)
[2017-02-05] MEDS: CLONIDINE HCL 0.1 MG TABLET PO PRN ×2 (06:05→16:15)
--- NOTE | 2017-02-05 06:30 | NUR ---
RN NOTE NO SIGNIFICANT CHANGES OVERNIGHT. PT RESTING COMFORTABLY IN BED. NO S/S OF ANY DISTRESS AT THIS TIME. PEG TUBE CLAMPED. MIDLINE INTACT AND PATENT S/L. CATAPRES PRN GIVEN AT 0600 FOR ELEVATED BP. SAFETY AND COMFORT MEASURES RENDERED. WILL F/U WITH DAY SHIFT FOR CASSI.
[2017-02-05] MEDS: BLOOD SUGAR DIAGNOSTIC 1 EACH STRIP IN SCH ×4 (06:42→21:51)
[2017-02-05 06:53] LABS: BASOPHILS % (AUTO) 0.2 % (0.0-2.0); EOSINOPHILS # (AUTO) 0.1 /CMM (0.0-0.7); EOSINOPHILS % (AUTO) 0.9 % (0.0-6.0); HEMATOCRIT 42 % (33-45); HEMOGLOBIN 13.5 g/dL (11.5-14.8); LYMPHOCYTES # (AUTO) 1.2 /CMM (0.8-4.8); LYMPHOCYTES % (AUTO) 22.7 % (20.0-44.0); MEAN CORPUSCULAR HEMOGLOBIN 33 PG (26.0-33.0); MEAN CORPUSCULAR HGB CONC 32 g/dl (31.0-36.0); MEAN CORPUSCULAR VOLUME 102 fL (82-100); MONOCYTES # (AUTO) 0.2 /CMM (0.1-1.30); MONOCYTES % (AUTO) 3.3 % (2.0-12.0); NEUTROPHILS % (AUTO) 72.9 % (43.0-81.0); PLATELET COUNT (AUTO) 449 /CMM (150-450); RDW COEFFICIENT OF VARIATION 17.2 (11.5-15.0); RED BLOOD CELL COUNT(AUTO) 4.09 MIL/uL (4.0-5.2); WHITE BLOOD COUNT (AUTO) 5.5 K/uL (4.3-11.0)
[2017-02-05 07:11] LABS: CALCIUM, SERUM 8.6 mg/dL (8.5-10.1); CREATININE 1.8 mg/dL (0.6-1.3); POTASSIUM 4.4 mmol/L (3.5-5.1)
[2017-02-05 08:00] VITALS: BP_SYST 130; BP_SYST 131; BP_DIAS 54
--- NOTE | 2017-02-05 08:00 | NUR ---
PATIENT RESTING ET CALLS OUT AT INTERVALS...ABLE TO FOLLOW SIMPLE COMMANDS...NO DISTRESS NOTED AT THIS TIME...HOB UP FOR COMFORT...AM CARE IN PROCESS
[2017-02-05] MEDS: INSULIN DETEMIR 100 UNIT/ML CARTRIDGE SQ SCH ×2 (09:00→21:00)
[2017-02-05] MEDS: NIFEdipine (10MG) 10 MG CAPSULE GT SCH ×2 (09:21→16:12)
[2017-02-05] MEDS: VIT B CMPLX 3/FA/VIT C/BIOTIN 1 TAB TABLET PO SCH (09:21)
[2017-02-05] MEDS: PANTOPRAZOLE 40 MG/PACK PACK GT SCH (09:21)
[2017-02-05] MEDS: MINOXIDIL (2.5MG) 2.5 MG TABLET GT SCH (09:22)
[2017-02-05] MEDS: clonazePAM 0.5 MG TABLET GT SCH ×2 (09:22→21:49)
[2017-02-05] MEDS: LOSARTAN POTASSIUM 50 MG TABLET GT SCH (09:22)
[2017-02-05] MEDS: FOLIC ACID 1 MG TABLET GT SCH (09:22)
[2017-02-05] MEDS: FERROUS SULFATE UDC 300 MG/5 ML UDC GT SCH (09:22)
[2017-02-05] MEDS: CARVEDILOL 12.5 MG TABLET PO SCH ×2 (09:26→21:48)
[2017-02-05] MEDS: DOCUSATE SODIUM LIQ 100 MG/10 ML UDC GT SCH ×2 (09:42→16:12)
--- NOTE | 2017-02-05 09:46 | NUR ---
AM SCHEDULED SUJEY HELD AT THIS TIME...PT SLEEPING, NOT EATING AND AM GLUC=82....WILL CHECK AT NOON WITH LUNCH TRAY
[2017-02-05] MEDS: LIOTHYRONINE SODIUM (25 MCG) 25 MCG TABLET GT SCH ×2 (13:32→21:47)
[2017-02-05] MEDS: diphenhydrAMINE HCL 50 MG/ML VIAL IV PRN (13:44)
--- NOTE | 2017-02-05 15:19 | NUR ---
TURNED AND REPOSITIONED FOR COMFORT...SCAREL AREA HEALED...HEELS INSPECTED AND MEPILEX REAPPLIED...HEELS FLOATED...
[2017-02-05 16:00] VITALS: BP 167/73
[2017-02-05] MEDS: CEFTRIAXONE 1 G in IV D5W 50 ML IV SCH (16:08)
[2017-02-05] MEDS: INSULIN REGULAR, HUMAN 100 UNIT/ML 3 ML VIAL SQ PRN (16:30)
[2017-02-05] MEDS: LACTOBACILLUS RHAMNOSUS GG 1 EACH CAP.SPRINK GT SCH (17:30)
[2017-02-05] MEDS ORDERED: SECONDARY IV SET 1 EA INFUS.SET MC ONE ×2 (17:47→22:33)
--- NOTE | 2017-02-05 19:30 | NUR ---
RN NOTES RECEIVED PT AWAKE, SCREAMING, MAKE PT COMFORTABLE, SIDERAILS UPX2 , MIDLINE IS NOT WORKING, CHARGE NURSE CALLED PSYCHOLOGIST PERSONNEL FOR SOMEBODY TO PUT THE MIDLINE, CONTINUE TO MONITOR
[2017-02-05 19:59] VITALS: BP 156/94
[2017-02-05 20:00] VITALS: BP 156/94
--- NOTE | 2017-02-05 20:00 | NUR ---
VICE PRESIDENT OF FINANCE UNABLE TO GIVE PROBIOTIC I WAS ADMITTING A PT IN ROOM 316-2
--- NOTE | 2017-02-05 22:00 | NUR ---
RN NOTES JOB CAME TO FIXED PT MIDLINE
--- NOTE | 2017-02-05 22:00 | NUR ---
RN NOTES PT BLOOD SUGAR WAS TOO LOW THE BLOOD SUGAR MACHINE SAYING WAS TOO LOW. D50 WAS GIVEN PER PROTOCOL
[2017-02-05] MEDS: DEXTROSE 50%-WATER 50 ML DISP.SYRIN IV PRN (22:03)
[2017-02-05] MEDS: MEROPENEM 500 MG in IV NS 0.9% 50 ML IV SCH (22:17)
--- NOTE | 2017-02-05 22:30 | NUR ---
RN NOTES RECHECK THE BLOOD SUGAR -86 PUDDING WAS GIVEN
--- NOTE | 2017-02-05 23:00 | NUR ---
RN NOTES PAGED ISHAN MORALES WAITING FOR HER TO CALL BACK
--- NOTE | 2017-02-05 23:30 | NUR ---
RN NOTES SPOKE TO ISHAN AND INFORMED HER REGARDING PT BLOOD SUGAR, ISHAN GUERRERO-ELY HOLD THE [facility] 20UNITS FOR STELLA
[2017-02-06] MEDS ORDERED: DEXTROSE 50%-WATER 50 ML DISP.SYRIN ONE (01:18)
--- NOTE | 2017-02-06 01:25 | NUR ---
RN NOTES CALLED ISHAN GUERRERO AND INFORMED HER THAT THE PT BLOOD SUGAR IS ONLY -61, ISHAN GUERRERO ORDERED TO GIVEN ANOTHER D50 IV X1 , ORDER NOTED AND CARRIED OUT
[2017-02-06] MEDS ORDERED: DEXTROSE 50%-WATER 50 ML DISP.SYRIN IVP ONE (01:30)
--- NOTE | 2017-02-06 04:00 | NUR ---
RN NOTES CHECK BLOOD SUGAR -124
[2017-02-06] MEDS: hydrALAZINE HCL 50 MG TABLET GT SCH ×3 (06:15→20:57)
[2017-02-06] MEDS: HEPARIN SODIUM, PORCINE 5000 UNITS/1 ML VIAL SQ SCH ×3 (06:16→20:58)
--- NOTE | 2017-02-06 07:29 | NUR ---
RN NOTES AWAKE, MORNING CARE RENDERED, PT. NEEDS ATTENDED. ENDORSED TO DAYSHIFT NURSE FOR CONTINUITY OF CARE
[2017-02-06 08:00] VITALS: BP 185/120
--- NOTE | 2017-02-06 08:00 | NUR ---
MS RN NOTES RECEIVED REPORT WITH PATIENT RESTING IN BED. PATIENT IS A/OX1. PATIENT IS ABLE TO FOLLOW SIMPLE COMMANDS BUT UNABLE TO COMPREHEND CONCEPTS. PATIENT RIGHT UA MIDLINE PATENT AND INTACT. NO SOB NOTED. NO ACUTE DISTRESS NOTED. BED IN LOWEST, LOCKED POSITION. CALL LIGHT IS WITHIN REACH. WILL CONTINUE TO MONITOR THROUGHOUT SHIFT.
[2017-02-06] MEDS: DOCUSATE SODIUM LIQ 100 MG/10 ML UDC GT SCH ×2 (08:15→17:23)
[2017-02-06] MEDS: BLOOD SUGAR DIAGNOSTIC 1 EACH STRIP IN SCH ×4 (08:15→21:30)
[2017-02-06] MEDS: LACTOBACILLUS RHAMNOSUS GG 1 EACH CAP.SPRINK GT SCH ×2 (08:16→17:22)
[2017-02-06] MEDS: FERROUS SULFATE UDC 300 MG/5 ML UDC GT SCH (08:16)
[2017-02-06] MEDS: LOSARTAN POTASSIUM 50 MG TABLET GT SCH (08:16)
[2017-02-06] MEDS: VIT B CMPLX 3/FA/VIT C/BIOTIN 1 TAB TABLET PO SCH (08:16)
[2017-02-06] MEDS: NIFEdipine (10MG) 10 MG CAPSULE GT SCH ×2 (08:17→17:22)
[2017-02-06] MEDS: PANTOPRAZOLE 40 MG/PACK PACK GT SCH (08:17)
[2017-02-06] MEDS: clonazePAM 0.5 MG TABLET GT SCH ×2 (08:18→20:57)
[2017-02-06] MEDS: MINOXIDIL (2.5MG) 2.5 MG TABLET GT SCH (08:18)
[2017-02-06] MEDS: FOLIC ACID 1 MG TABLET GT SCH (08:18)
[2017-02-06] MEDS: CARVEDILOL 12.5 MG TABLET PO SCH ×2 (08:18→20:57)
[2017-02-06] MEDS: LIOTHYRONINE SODIUM (25 MCG) 25 MCG TABLET GT SCH ×2 (08:24→20:56)
[2017-02-06] MEDS: INSULIN REGULAR, HUMAN 100 UNIT/ML 3 ML VIAL SQ PRN ×4 (08:32→21:32)
[2017-02-06] MEDS: INSULIN DETEMIR 100 UNIT/ML CARTRIDGE SQ SCH ×2 (09:00→21:33)
--- NOTE | 2017-02-06 09:30 | NUR ---
MS RN NOTES HELD LEVEMIR 20 UNITS ORDERED. CHARGE NURSE AWARE.
[2017-02-06 10:38] LABS: CALCIUM, SERUM 9.2 mg/dL (8.5-10.1); CREATININE 2.7 mg/dL (0.6-1.3); POTASSIUM 4.8 mmol/L (3.5-5.1)
[2017-02-06 10:39] LABS: BASOPHILS % (AUTO) 0.6 % (0.0-2.0); EOSINOPHILS # (AUTO) 0.2 /CMM (0.0-0.7); EOSINOPHILS % (AUTO) 2.6 % (0.0-6.0); HEMATOCRIT 42 % (33-45); HEMOGLOBIN 13.2 g/dL (11.5-14.8); LYMPHOCYTES # (AUTO) 1.5 /CMM (0.8-4.8); LYMPHOCYTES % (AUTO) 18.8 % (20.0-44.0); MEAN CORPUSCULAR HEMOGLOBIN 32 PG (26.0-33.0); MEAN CORPUSCULAR HGB CONC 32 g/dl (31.0-36.0); MEAN CORPUSCULAR VOLUME 101 fL (82-100); MONOCYTES # (AUTO) 0.5 /CMM (0.1-1.30); MONOCYTES % (AUTO) 6.9 % (2.0-12.0); NEUTROPHILS # (AUTO) 5.5 /CMM (1.8-8.9); NEUTROPHILS % (AUTO) 71.1 % (43.0-81.0); PLATELET COUNT (AUTO) 475 /CMM (150-450); RED BLOOD CELL COUNT(AUTO) 4.12 MIL/uL (4.0-5.2); WHITE BLOOD COUNT (AUTO) 7.7 K/uL (4.3-11.0)
[2017-02-06] MEDS: HYDROCODONE/APAP 5/325MG 1 EACH TABLET PO PRN (11:58)
[2017-02-06] MEDS: diphenhydrAMINE HCL 50 MG/ML VIAL IV PRN (14:19)
--- NOTE | 2017-02-06 14:20 | NUR ---
MS RN NOTES HYDRALAZINE WAS HELD DUE TO PATIENT RECEIVING DIALYSIS.
[2017-02-06 16:00] VITALS: BP 180/120
[2017-02-06] MEDS ORDERED: NA PHOS,M-B/NA PHOS,DI-BA 1 EA ENEMA RC STA (17:55)
[2017-02-06] MEDS ORDERED: SECONDARY IV SET 1 EA INFUS.SET MC ONE (18:33)
[2017-02-06] MEDS: ZOSYN IVPB 2.25 G in IV D5W 50ml IV SCH ×2 (18:39→23:17)
--- NOTE | 2017-02-06 19:07 | NUR ---
MS RN NOTES PATIENT IS IN BED RESTING. PATIENT IS A/OX2. PATIENT IS ABLE TO FOLLOW SIMPLE COMMANDS AND ANSWER QUESTIONS. NO S/S OF DISTRESS NOTED. NO S/S OF SOB NOTED. PATIENT IV PATENT AND INTACT. ALL NEEDS HAVE BEEN MET. BED IN LOW LOCKED POSITION. CALL LIGHT WITHIN REACH. WILL ENDORSE CARE TO PM SHIFT.
--- NOTE | 2017-02-06 19:30 | NUR ---
MS RN NOTE RECEIVED PATIENT FROM DAY SHIFT, PATIENT IS ALERT AND ORIENTEDX2, FOLLOWS AND EXPRESSES SIMPLE NEEDS, NO S/S OF RESPIRATORY DISTRESS OR PAIN NOTED AT THIS TIME. RIGHT UPPER ARM MIDLINE IS PATENT AND INTACT, HL. RIGHT CHEST WALL PERMA CATH PRESENT FOR HD. SRX2, BED IN LOW POSITION, CALL LIGHT WITHIN REACH, WILL CONTINUE TO MONITOR PATIENT.
[2017-02-06 20:06] VITALS: BP 147/94
[2017-02-06] MEDS: LINEZOLID 600 MG TABLET PO SCH (20:57)
[2017-02-07] MEDS: hydrALAZINE HCL 50 MG TABLET GT SCH ×3 (04:19→20:52)
[2017-02-07] MEDS: HEPARIN SODIUM, PORCINE 5000 UNITS/1 ML VIAL SQ SCH ×3 (04:20→21:04)
--- NOTE | 2017-02-07 04:27 | NUR ---
MS RN NOTE PATIENT'S BP WAS 206/120 HR 91. SCHEDULED HYDRALAZINE 100MG GIVEN. WILL CONTINUE TO MONITOR
[2017-02-07] MEDS: ZOSYN IVPB 2.25 G in IV D5W 50ml IV SCH ×4 (05:37→23:59)
[2017-02-07] MEDS: CLONIDINE HCL 0.1 MG TABLET PO PRN (05:42)
[2017-02-07] MEDS: DEXTROSE 50%-WATER 50 ML DISP.SYRIN IV PRN (05:48)
--- NOTE | 2017-02-07 05:50 | NUR ---
MS RN NOTE CALLED RAPID RESPONSE SINCE PT'S BS IS 19, LOSING HER CONSCIOUSNESS. BP WAS HIGH WAS 237/146. CLONIDINE 0.2MG GT GIVEN AT 0542, AND WILL RECHECK IT AGAIN.
[2017-02-07] MEDS: BLOOD SUGAR DIAGNOSTIC 1 EACH STRIP IN SCH ×3 (06:07→18:45)
[2017-02-07 06:11] VITALS: BP 201/131
[2017-02-07 06:48] VITALS: BP 158/100
--- NOTE | 2017-02-07 06:48 | NUR ---
MS RN NOTE RECHECK BP WAS 154/100 MANUALLY. WILL ENDORSE TO DAY SHIFT.
[2017-02-07 06:57] LABS: BASOPHILS # (AUTO) 0.1 /CMM (0.0-0.2); BASOPHILS % (AUTO) 1.1 % (0.0-2.0); EOSINOPHILS # (AUTO) 0.3 /CMM (0.0-0.7); EOSINOPHILS % (AUTO) 3.1 % (0.0-6.0); HEMATOCRIT 43 % (33-45); HEMOGLOBIN 14.1 g/dL (11.5-14.8); LYMPHOCYTES # (AUTO) 1.4 /CMM (0.8-4.8); LYMPHOCYTES % (AUTO) 14.8 % (20.0-44.0); MEAN CORPUSCULAR HEMOGLOBIN 33 PG (26.0-33.0); MEAN CORPUSCULAR HGB CONC 33 g/dl (31.0-36.0); MEAN CORPUSCULAR VOLUME 101 fL (82-100); MONOCYTES # (AUTO) 0.6 /CMM (0.1-1.30); MONOCYTES % (AUTO) 6.2 % (2.0-12.0); NEUTROPHILS # (AUTO) 7.3 /CMM (1.8-8.9); NEUTROPHILS % (AUTO) 74.8 % (43.0-81.0); PLATELET COUNT (AUTO) 441 /CMM (150-450); RED BLOOD CELL COUNT(AUTO) 4.28 MIL/uL (4.0-5.2); WHITE BLOOD COUNT (AUTO) 9.7 K/uL (4.3-11.0)
[2017-02-07 07:11] LABS: CALCIUM, SERUM 9.4 mg/dL (8.5-10.1); CREATININE 2.4 mg/dL (0.6-1.3); POTASSIUM 3.9 mmol/L (3.5-5.1)
--- NOTE | 2017-02-07 07:19 | NUR ---
MS RN NOTE PATIENT IS RESTING IN BED, NO S/S HYPOGLYCEMIA PRESENT, LOOKS MORE RELAXED THAN AN HOUR AGO. MID LINE ON RIGHT UPPER ARM IS PATENT AND INTACT, HL. NO S/S OF RESPIRATORY DISTRESS NOTED. ENDORSED TO DAY SHIFT FOR CASSI.
--- NOTE | 2017-02-07 07:52 | NUR ---
MS RN NOTES RECEIVED REPORT WITH PATIENT IN BED. PATIENT IS A/OX2. NO S/S OF HYPOGLYCEMIA NOTED. NO S/S OF SOB OR RESPIRATORY DISTRESS NOTED. NO S/S OF ACUTE DISTRESS NOTED. RIGHT UA MIDLINE PATENT AND INTACT. BED IS IN LOW LOCKED POSITION. CALL LIGHT WITHIN REACH. WILL CONTINUE TO MONITOR THROUGHOUT SHIFT.
[2017-02-07 08:00] VITALS: BP 145/101
[2017-02-07] MEDS: INSULIN DETEMIR 100 UNIT/ML CARTRIDGE SQ SCH (09:00)
--- NOTE | 2017-02-07 09:00 | NUR ---
MS RN NOTES LEVEMIR 20 UNITS HELD DUE TO RAPID RESPONSE TEAM BEING CALLED IN THE MORNING BECAUSE OF CRITICAL LOW BLOOD GLUCOSE. MD AND CHARGE NURSE AWARE.
[2017-02-07] MEDS: FERROUS SULFATE UDC 300 MG/5 ML UDC GT SCH (09:57)
[2017-02-07] MEDS: DOCUSATE SODIUM LIQ 100 MG/10 ML UDC GT SCH ×2 (09:57→18:36)
[2017-02-07] MEDS: LOSARTAN POTASSIUM 50 MG TABLET GT SCH (09:58)
[2017-02-07] MEDS: PANTOPRAZOLE 40 MG/PACK PACK GT SCH (09:58)
[2017-02-07] MEDS: VIT B CMPLX 3/FA/VIT C/BIOTIN 1 TAB TABLET PO SCH (09:58)
[2017-02-07] MEDS: MINOXIDIL (2.5MG) 2.5 MG TABLET GT SCH (09:59)
[2017-02-07] MEDS: LINEZOLID 600 MG TABLET PO SCH ×2 (09:59→20:51)
[2017-02-07] MEDS: clonazePAM 0.5 MG TABLET GT SCH ×2 (09:59→20:51)
[2017-02-07] MEDS: FOLIC ACID 1 MG TABLET GT SCH (09:59)
[2017-02-07] MEDS: CARVEDILOL 12.5 MG TABLET PO SCH ×2 (09:59→20:51)
[2017-02-07] MEDS: NIFEdipine (10MG) 10 MG CAPSULE GT SCH ×2 (09:59→18:36)
[2017-02-07] MEDS: LACTOBACILLUS RHAMNOSUS GG 1 EACH CAP.SPRINK GT SCH ×2 (09:59→18:36)
[2017-02-07] MEDS: LIOTHYRONINE SODIUM (25 MCG) 25 MCG TABLET GT SCH ×2 (11:41→20:53)
[2017-02-07] MEDS: INSULIN REGULAR, HUMAN 100 UNIT/ML 3 ML VIAL SQ PRN ×2 (12:19→18:45)
[2017-02-07 16:00] VITALS: BP 151/98
--- NOTE | 2017-02-07 18:45 | NUR ---
MS RN NOTES PATIENT'S BLOOD SUGAR WAS CHECKED AND WAS AT A CRITICAL HIGH. PROTOCOL INITIATED. 10 UNITS OF REGULAR INSULIN WAS ADMINISTERED AND DR. ELDER WAS NOTIFIED AT 1843. INSTRUCTED TO RECHECK IN 30 MINUTES
--- NOTE | 2017-02-07 19:30 | NUR ---
MS FLOR NOTES BLOOD SUGAR WAS RECHECKED AND WAS STILL AT A CRITICAL HIGH. DR. ELDER WAS NOTIFIED AT 192. AWAITING ORDERS Addendum: 02/07/17 at 1958 by AKIL BOWDEN RN PATIENT IS ASYMPTOMATIC. NO DISTRESS NOTED.
--- NOTE | 2017-02-07 19:40 | NUR ---
MS RN NOTE RECEIVED PATIENT FROM DAY SHIFT, PATIENT IS ALERT AND ORIENTEDX2, FOLLOWS AND EXPRESSES SIMPLE NEEDS, NO S/S OF RESPIRATORY DISTRESS OR PAIN NOTED AT THIS TIME. RIGHT UPPER ARM MIDLINE IS PATENT AND INTACT, HL. RIGHT CHEST WALL PERMA CATH PRESENT FOR HD. HER BS IS >600, CONTACT DR. ELDER FOR RECOMMEDATION, WAITING FOR THE RESPONSE. SRX2, BED IN LOW POSITION, CALL LIGHT WITHIN REACH, WILL CONTINUE TO MONITOR PATIENT
--- NOTE | 2017-02-07 19:45 | NUR ---
MS RN NOTES PATIENT IS CURRENTLY A/OX2. NO SOB NOTED. NO S/S OF ACUTE DISTRESS NOTED. IV PATENT AND INTACT. BED IN LOW LOCKED POSITION. CALL LIGHT WITHIN REACH. PATIENT NEEDS HAVE BEEN MET THROUGHOUT THE DAY. ENDORSED CARE TO PM SHIFT. PM SHIFT AWARE OF PATIENT'S CRITICAL HIGH BLOOD GLUCOSE. PATIENT IS CURRENTLY ASYMPTOMATIC. NO DISTRESS NOTED. PATIENT REQUESTING VANILLA PUDDING.
[2017-02-07] MEDS ORDERED: *INSULIN REGULAR(HUMULIN R)HUM 100 UNIT/ML VIAL SQ PRN (20:00)
[2017-02-07] MEDS ORDERED: INSULIN REGULAR, HUMAN 100 UNIT/ML 3 ML VIAL SQ PRN (20:00)
[2017-02-07] MEDS ORDERED: INSULIN DETEMIR 100 UNIT/ML CARTRIDGE SQ ONE (20:04)
[2017-02-07 20:24] VITALS: BP 167/95
--- NOTE | 2017-02-07 20:25 | NUR ---
MS RN NOTE RECHECKED HER BS BY RANDOM GLUCOSE, IT WAS 658 MG/DL. DR. ELDER ORDERED GIVE LEVEMIR 10 UNITS NOW, AND RECHECK IN AN HOUR AROUND 1999. WILL ADMINISTER PER ORDER. Addendum: 02/08/17 at 0148 by SHANON LANGLEY RN DR. ELDER ORDERED AT 1999. DISREGARD 'AROUND 1999'
[2017-02-07] MEDS ORDERED: INSULIN GLARGINE, 100 UNIT/ML CARTRIDGE SQ ONE (20:30)
[2017-02-07] MEDS ORDERED: INSULIN DETEMIR 100 UNIT/ML CARTRIDGE SQ SCH (22:00)
[2017-02-07] MEDS: BLOOD SUGAR DIAGNOSTIC 1 EACH STRIP VI SCH (22:13)
--- NOTE | 2017-02-07 22:30 | NUR ---
MS RN NOTE PATIENT'S BS WAS 549MG/DL, AT 2200. 10 UNITS OF REGULAR INSULIN GIVEN AT 2230. WILL CONTINUE TO MONITOR.
--- NOTE | 2017-02-07 22:30 | NUR ---
MS RN NOTE SCHEDULED LEVEMIR 10 UNITS AT 2200 DID NOT ADMINISTER SINCE IT WAS GIVEN AT [address] ELDER'S ORDER.
--- NOTE | 2017-02-07 23:30 | NUR ---
MS RN NOTE RECHECKED PATIENT'S BS, IT WAS 449. NOTIFIED ONCALL MD PALMER, AND GOT AN ORDER OF ADMINISTER ANOTHER 10 UNITS OF REGULAR INSULIN STAT. ORDERS PUT IN, WILL CARRY OUT AND KEEP MONITORING HER BS LEVEL. PATIENT HAS NO S/S OF HYPERGLYCEMIA.
[2017-02-08] MEDS ORDERED: INSULIN REGULAR, HUMAN 100 UNIT/ML 3 ML VIAL SQ ONE
--- NOTE | 2017-02-08 00:30 | NUR ---
MS/TESTING COORDINATOR; BED BATH DONE BY [facility]. GOWN AND COMPLETE BED LINENS CHANGED. REPOSITIONED. Addendum: 02/09/17 at 0032 by EMELY RENE TESTING COORDINATOR DISREGARD ABOVE NOTES WRONG TIME. IT IS NOT 0030 IT SHOULD BE 2030.
--- NOTE | 2017-02-08 03:00 | NUR ---
MS RN NOTE RECHECKED HER BS 63MG/DL, OJ WITH 2 PACKS OF SUGAR GIVEN. WILL MONITOR HER BS.
--- NOTE | 2017-02-08 05:00 | NUR ---
MS RN NOTE PATIENT WAS COLD, PERSPIRING, SEEMS LOSING HER CONSCIOUSNESS, RECHECKED HER BLOOD SUGAR, IT WAS CRITICALLY LOW <10. ADMINISTERED D 50, WILL RECHECK HER BS
--- NOTE | 2017-02-08 06:15 | NUR ---
MS RN NOTE AT 0530 BS 66MG/DL, AT 0545 BS 46MG/DL, ADMINISTERED ANOTHER A HALF DOSE OF D50. RECHECK HER BS AT 0615, BS 88MG/DL. NOTIFIED DR. PALMER REGARDING HER SUGAR LEVEL WELL.
[2017-02-08] MEDS: BLOOD SUGAR DIAGNOSTIC 1 EACH STRIP VI SCH ×2 (06:18→11:02)
[2017-02-08] MEDS: DEXTROSE 50%-WATER 50 ML DISP.SYRIN IV PRN ×2 (06:19→06:34)
[2017-02-08] MEDS: ZOSYN IVPB 2.25 G in IV D5W 50ml IV SCH ×4 (06:34→23:23)
--- NOTE | 2017-02-08 07:06 | NUR ---
MS RN NOTE PATIENT IS RESTING, NO S/S OF HYPOGLYCEMIA. NO FACIAL GRIMACE OR S/S OF RESPIRATORY DISTRESS PRESENT. MID LINE IS PATENT AND INTACT, HL. WILL ENDORSE TO DAY SHIFT FOR CASSI.
--- NOTE | 2017-02-08 07:58 | NUR ---
RN NOTES RECEIVED PT IN BED.SLEEPING BUT EASY TO AROUSE. IN NO APPARENT DISTRESS. ALERT TO SELF. REFUSED TO HAVE BLOOD DRAWN- UNABLE TO DRAW BLOOD FROM RIGHT UPPER ARM MIDLINE. WILL TRY AGAIN LATER. PT'S CALL LIGHT IN REACH. WILL CONTINUE TO MONITOR
[2017-02-08 08:00] VITALS: BP 172/104
[2017-02-08] MEDS: DOCUSATE SODIUM LIQ 100 MG/10 ML UDC GT SCH ×2 (09:12→17:31)
[2017-02-08] MEDS: PANTOPRAZOLE 40 MG/PACK PACK GT SCH (09:12)
[2017-02-08] MEDS: FERROUS SULFATE UDC 300 MG/5 ML UDC GT SCH (09:12)
[2017-02-08] MEDS: LACTOBACILLUS RHAMNOSUS GG 1 EACH CAP.SPRINK GT SCH ×2 (09:13→17:31)
[2017-02-08] MEDS: LOSARTAN POTASSIUM 50 MG TABLET GT SCH (09:13)
[2017-02-08] MEDS: VIT B CMPLX 3/FA/VIT C/BIOTIN 1 TAB TABLET PO SCH (09:13)
[2017-02-08] MEDS: LINEZOLID 600 MG TABLET PO SCH ×2 (09:13→20:58)
[2017-02-08] MEDS: clonazePAM 0.5 MG TABLET GT SCH ×2 (09:13→20:56)
[2017-02-08] MEDS: FOLIC ACID 1 MG TABLET GT SCH (09:13)
[2017-02-08] MEDS: NIFEdipine (10MG) 10 MG CAPSULE GT SCH ×2 (09:13→17:31)
[2017-02-08] MEDS: MINOXIDIL (2.5MG) 2.5 MG TABLET GT SCH (09:14)
[2017-02-08] MEDS: CARVEDILOL 12.5 MG TABLET PO SCH ×2 (09:14→20:58)
[2017-02-08] MEDS: LIOTHYRONINE SODIUM (25 MCG) 25 MCG TABLET GT SCH ×2 (09:23→20:55)
--- NOTE | 2017-02-08 10:00 | NUR ---
RN NOTES PT TOLERATED BREAKFAST- ATE WELL. TOLERATED ALL DUE MEDS AND TREATMENTS. WILL CONTINUE TO MONITOR
[2017-02-08] MEDS: hydrALAZINE HCL 50 MG TABLET GT SCH ×2 (12:21→20:54)
[2017-02-08] MEDS: HEPARIN SODIUM, PORCINE 5000 UNITS/1 ML VIAL SQ SCH ×2 (12:21→21:23)
[2017-02-08] MEDS: diphenhydrAMINE HCL 50 MG/ML VIAL IV PRN ×2 (13:19→23:22)
[2017-02-08] MEDS: BLOOD SUGAR DIAGNOSTIC 1 EACH STRIP IN SCH ×3 (14:57→21:38)
--- NOTE | 2017-02-08 15:01 | NUR ---
rn notes pt started on dialysis. tolerating treatment well. will continue to monitor
[2017-02-08] MEDS: INSULIN REGULAR, HUMAN 100 UNIT/ML 3 ML VIAL SQ PRN ×2 (15:07→21:53)
[2017-02-08 15:58] LABS: EOSINOPHILS # (AUTO) 0.1 /CMM (0.0-0.7); EOSINOPHILS % (AUTO) 1.2 % (0.0-6.0); HEMATOCRIT 40 % (33-45); HEMOGLOBIN 12.7 g/dL (11.5-14.8); LYMPHOCYTES # (AUTO) 1.3 /CMM (0.8-4.8); LYMPHOCYTES % (AUTO) 18.5 % (20.0-44.0); MEAN CORPUSCULAR HEMOGLOBIN 32 PG (26.0-33.0); MEAN CORPUSCULAR HGB CONC 32 g/dl (31.0-36.0); MEAN CORPUSCULAR VOLUME 100 fL (82-100); MONOCYTES # (AUTO) 0.7 /CMM (0.1-1.30); NEUTROPHILS # (AUTO) 5.2 /CMM (1.8-8.9); NEUTROPHILS % (AUTO) 71.3 % (43.0-81.0); PLATELET COUNT (AUTO) 444 /CMM (150-450); RDW COEFFICIENT OF VARIATION 15.7 (11.5-15.0); RED BLOOD CELL COUNT(AUTO) 3.97 MIL/uL (4.0-5.2); WHITE BLOOD COUNT (AUTO) 7.3 K/uL (4.3-11.0)
[2017-02-08 16:00] VITALS: BP 181/108
[2017-02-08 16:11] LABS: CALCIUM, SERUM 8.5 mg/dL (8.5-10.1); CREATININE 3.2 mg/dL (0.6-1.3); MAGNESIUM 2.6 mg/dL (1.8-2.4); PHOSPHORUS 4.9 mg/dL (2.5-4.9); POTASSIUM 4.4 mmol/L (3.5-5.1)
[2017-02-08] MEDS ORDERED: IV NS 0.9% 250 ML IV ONE (17:27)
[2017-02-08] MEDS ORDERED: ERGOCALCIFEROL (VITAMIN D 2) 50,000 UNIT CAPSULE GT SCH (18:00)
--- NOTE | 2017-02-08 18:00 | NUR ---
RN NOTES PT IN BED. AWAKE, ALERT, ORIENTED X 2. IN O APPARENT DISTRESS. TOLERATED ALL DUE MEDS AND TREATMENTS. NO EPISODE OF HYPOGLYCEMIA THIS SHIFT. .COMPLETED DIALYSIS, 2L OUT. WILL ENDORSE TO ONCOMING SHIFT
--- NOTE | 2017-02-08 19:30 | NUR ---
MS/TOOL DISTRIBUTOR; RECEIVED PT IN BED AWAKE SCREAMING. IVF ON PROGRESS VIA JOAQUIM MIDLINE. BREATHING NON LABORED. PERMA CATH INTACT RCW. GT INTACT WORKING , I FLUSHED WITH WATER PATENT. ON CONTACT ISOLATION OBSERVED. BED ON LOWER POSITION ANND LOCKED FOR SAFETY. SIDE RAILS ARE UP FOR SAFETY. CONTINUE TO MONITOR. CALL LIGHT WITHIN REACH.
[2017-02-08 20:00] VITALS: BP 161/91
--- NOTE | 2017-02-08 20:30 | NUR ---
MS/YARDING AND FOLDING MACHINE OPERATOR; COMPLETE BED BATH DONE, DIAPER CHANGED AND COMPLETE BED LINENS CHANGED. REPOSITIONED.
--- NOTE | 2017-02-08 21:00 | NUR ---
MS/ENVIRONMENTAL CONSERVATION PROFESSOR; BS 223 REGULAR INSULIN 6 UNITS SQ GIVEN.
[2017-02-08] MEDS: INSULIN DETEMIR 100 UNIT/ML CARTRIDGE SQ SCH (21:56)
--- NOTE | 2017-02-08 23:20 | NUR ---
MS/BUSINESS DATA ANALYST; C/O ITCHING TO HER BACK BENADRYL 50 MG IVP Q6 PRN GIVEN BY THE RN.
--- NOTE | 2017-02-09 01:00 | NUR ---
MS/ROOM SERVICE FOOD SERVER; RECHECKED BS 133.
[2017-02-09] MEDS: BLOOD SUGAR DIAGNOSTIC 1 EACH STRIP IN SCH ×6 (01:21→21:28)
[2017-02-09] MEDS: CLONIDINE HCL 0.1 MG TABLET PO PRN (02:30)
--- NOTE | 2017-02-09 02:30 | NUR ---
MS/HYDRAULIC LIFT OPERATOR; CATAPRES 0.2 MG Q6 PRN GIVEN VIA GT FOR BP 176/ 106 , P 101. ALSO C/O ABDOMINAL PAIN NORCO 5-325 MG 1 TAB. Q4 PRN GIVEN VIA GT.WILL MONITOR.
[2017-02-09] MEDS: HYDROCODONE/APAP 5/325MG 1 EACH TABLET PO PRN ×4 (02:33→23:06)
--- NOTE | 2017-02-09 05:00 | NUR ---
MS/SEMICONDUCTOR LAB TECHNICIAN; BS 59 CHARGE NURSE NOTIFIED. D50 1 AMP. IVF GIVEN BY THE RN.
[2017-02-09] MEDS: HEPARIN SODIUM, PORCINE 5000 UNITS/1 ML VIAL SQ SCH ×3 (06:05→21:32)
[2017-02-09] MEDS: hydrALAZINE HCL 50 MG TABLET GT SCH ×3 (06:09→21:30)
[2017-02-09] MEDS: ZOSYN IVPB 2.25 G in IV D5W 50ml IV SCH ×3 (06:12→17:17)
[2017-02-09] MEDS: DEXTROSE 50%-WATER 50 ML DISP.SYRIN IV PRN (06:13)
--- NOTE | 2017-02-09 07:00 | NUR ---
MS/PREVENTION RN; BS RE CHECKED 150 NO COVERAGE GIVEN. WILL ENDORSE TO THE DAY SHIFT NURSE.
--- NOTE | 2017-02-09 07:10 | NUR ---
MS/ELEVATOR RUNNER; SLEPT ONLY FOR SHORT TIME. HAS BEEN SCREAMING LAST NIGHT WANT S LOTION TO HER BACK FOR ITCHING. WILL CONTINUE TO MONITOR. PERMA CATH INTACT ON RCW. WILL CONTINUE TO MONITOR.
[2017-02-09 08:00] VITALS: BP 165/110
--- NOTE | 2017-02-09 08:00 | NUR ---
AM RN NOTES RECEIVED PT IN BED SLEEPING, EASY TO AROUSE, NO SOB OR DISTRESS NOTED, NO PAIN OR DISCOMFORT, WILL MONITOR.
[2017-02-09 08:41] LABS: BASOPHILS % (AUTO) 0.4 % (0.0-2.0); EOSINOPHILS # (AUTO) 0.3 /CMM (0.0-0.7); EOSINOPHILS % (AUTO) 2.9 % (0.0-6.0); HEMATOCRIT 36 % (33-45); HEMOGLOBIN 11.5 g/dL (11.5-14.8); LYMPHOCYTES # (AUTO) 1.4 /CMM (0.8-4.8); LYMPHOCYTES % (AUTO) 13.3 % (20.0-44.0); MEAN CORPUSCULAR HEMOGLOBIN 32 PG (26.0-33.0); MEAN CORPUSCULAR HGB CONC 32 g/dl (31.0-36.0); MEAN CORPUSCULAR VOLUME 100 fL (82-100); MONOCYTES # (AUTO) 0.6 /CMM (0.1-1.30); MONOCYTES % (AUTO) 6.2 % (2.0-12.0); NEUTROPHILS # (AUTO) 7.9 /CMM (1.8-8.9); NEUTROPHILS % (AUTO) 77.2 % (43.0-81.0); PLATELET COUNT (AUTO) 378 /CMM (150-450); RDW COEFFICIENT OF VARIATION 15.3 (11.5-15.0); RED BLOOD CELL COUNT(AUTO) 3.58 MIL/uL (4.0-5.2); WHITE BLOOD COUNT (AUTO) 10.3 K/uL (4.3-11.0)
[2017-02-09 08:58] LABS: CALCIUM, SERUM 8.2 mg/dL (8.5-10.1); CREATININE 2.8 mg/dL (0.6-1.3); MAGNESIUM 2.2 mg/dL (1.8-2.4); PHOSPHORUS 3.9 mg/dL (2.5-4.9); POTASSIUM 4.3 mmol/L (3.5-5.1)
[2017-02-09] MEDS: DOCUSATE SODIUM LIQ 100 MG/10 ML UDC GT SCH ×2 (09:07→16:34)
[2017-02-09] MEDS: clonazePAM 0.5 MG TABLET GT SCH ×2 (09:08→21:27)
[2017-02-09] MEDS: VIT B CMPLX 3/FA/VIT C/BIOTIN 1 TAB TABLET PO SCH (09:08)
[2017-02-09] MEDS: CARVEDILOL 12.5 MG TABLET PO SCH ×2 (09:08→21:29)
[2017-02-09] MEDS: FERROUS SULFATE UDC 300 MG/5 ML UDC GT SCH (09:08)
[2017-02-09] MEDS: NIFEdipine (10MG) 10 MG CAPSULE GT SCH ×2 (09:08→16:37)
[2017-02-09] MEDS: PANTOPRAZOLE 40 MG/PACK PACK GT SCH (09:09)
[2017-02-09] MEDS: MINOXIDIL (2.5MG) 2.5 MG TABLET GT SCH (09:09)
[2017-02-09] MEDS: LACTOBACILLUS RHAMNOSUS GG 1 EACH CAP.SPRINK GT SCH ×2 (09:09→16:34)
[2017-02-09] MEDS: LINEZOLID 600 MG TABLET PO SCH ×2 (09:09→21:29)
[2017-02-09] MEDS: FOLIC ACID 1 MG TABLET GT SCH (09:09)
[2017-02-09] MEDS: LOSARTAN POTASSIUM 50 MG TABLET GT SCH (09:09)
[2017-02-09] MEDS: LIOTHYRONINE SODIUM (25 MCG) 25 MCG TABLET GT SCH ×2 (09:15→21:32)
[2017-02-09] MEDS: INSULIN REGULAR, HUMAN 100 UNIT/ML 3 ML VIAL SQ PRN ×4 (09:26→21:35)
--- NOTE | 2017-02-09 09:42 | NUR ---
PT WITH EPISODE OF SCREAMING, NOT ABLE OT EXPLAIN ABOUT NEEDS, REPOSITIONED AND ALVAREZ CARE PROVIDED, LOOKS COMFORTABLE, WILL MONITOR.
[2017-02-09 16:00] VITALS: BP 180/91
--- NOTE | 2017-02-09 17:00 | NUR ---
PT'S MOM AT BEDSIDE, SHE FEED PT WITH SWEET SNACKS, AND JUICE, EDUCATION DONE ABOUT DIET, RISKS AND BENEFITS ON NONCOMPLIANTS DISCUSSED.
--- NOTE | 2017-02-09 17:50 | NUR ---
BLOOD SUGAR CHECK DONE AFTER CONSUMING EARLY DINNER AND FAMILY NONDIABETIC FOOD, NOTED WITH HIGH BS, PLACED CALL TO DR ELDER.
--- NOTE | 2017-02-09 18:11 | NUR ---
DR. ELDER CALLED BACK AND STATED TO GIVE LONG ACTING INSULIN SCHEDULED FOR 2200 NOW AND NO NEED FOR 2200 DOSE, PER MD NIGHT NURSE TO CALL MD AT 1999 TO INFORM WITH BS RESULT.
[2017-02-09] MEDS: INSULIN DETEMIR 100 UNIT/ML CARTRIDGE SQ SCH (18:20)
--- NOTE | 2017-02-09 19:24 | NUR ---
PT IN STABLE CONDITION, NO SOB OR DISTRESS NO PAIN NOTED, INDORSED TO NEXT SHIFT AND NURSE INFORMED TO RECHECK PT'S BS AT [address] ELDER WITH RESULT.
--- NOTE | 2017-02-09 19:30 | NUR ---
RN NOTES RECEIVED PATIENT IN BED AWAKE, AO X 1-2, VERBALLY RESPONSIVE. NO SIGNS OF ACUTE DISTRESS NOTED. DENIES ANY PAIN AT THIS TIME. NO SYMPTOMS OF HYPER/HYPOGLYCEMIA. IV SITE PATENT, INTACT; FLUSHED. PERMACATH PATENT, INTACT. GT PATENT, INTACT; IN PLACE UPON AUSCULTATION. ON LOW BED WITH BILATERAL UPPER SIDE RAILS UP. CALL LIGHT WITHIN EASY REACH. CONTACT ISOLATION MAINTAINED. WILL CONTINUE TO MONITOR.
[2017-02-09 20:00] VITALS: BP_SYST 162; BP_SYST 165; BP_DIAS 101; BP_DIAS 60
--- NOTE | 2017-02-09 20:20 | NUR ---
RN NOTES DR. PALMER NOTIFIED OF BS 370 WITH ORDER TO GIVE INSULIN COVERAGE PER SLIDING SCALE. NOTED AND CARRIED OUT. WILL CONTINUE TO MONITOR PATIENT.
[2017-02-09 21:00] VITALS: BP 165/98
[2017-02-09] MEDS: diphenhydrAMINE HCL 50 MG/ML VIAL IV PRN (22:22)
[2017-02-10] MEDS: ZOSYN IVPB 2.25 G in IV D5W 50ml IV SCH ×5 (00:50→23:27)
[2017-02-10] MEDS: BLOOD SUGAR DIAGNOSTIC 1 EACH STRIP IN SCH ×6 (00:56→20:53)
[2017-02-10] MEDS: DEXTROSE 50%-WATER 50 ML DISP.SYRIN IV PRN (04:26)
[2017-02-10] MEDS: hydrALAZINE HCL 50 MG TABLET GT SCH ×3 (04:32→20:54)
[2017-02-10] MEDS: HEPARIN SODIUM, PORCINE 5000 UNITS/1 ML VIAL SQ SCH ×3 (04:38→20:56)
--- NOTE | 2017-02-10 06:07 | NUR ---
RN NOTES PATIENT ASLEEP, EASILY AROUSABLE. RESPIRATIONS EVEN. NO SIGNS OF PAIN NOTED. DUE MEDS GIVEN. NO SYMPTOMS OF HYPER/HYPOGLYCEMIA. NEEDS ATTENDED. SAFETY PRECAUTIONS AND COMFORT MEASURES IN PLACE. WILL GIVE REPORT TO DAY SHIFT FOR CONTINUATION OF CARE.
--- NOTE | 2017-02-10 07:05 | NUR ---
MS RN OPENING NOTES RECEIVED PATIENT FROM [employer] MANAGER NURSE IN STABLE CONDITION. A/ O X 1-2, VERBALLY RESPONSIVE. NO SOB OR SIGNS OF DISTRESS NOTED. DENIES ANY PAIN AT THIS TIME. NO SYMPTOMS OF HYPER/HYPOGLYCEMIA. RIGHT UPPER ARM MIDLINE PATENT AND INTACT. PERMACATH ON RIGHT CHEST WALL ALSO PATENT, INTACT. GT PATENT, INTACT; IN PLACE UPON AUSCULTATION. ON LOW BED WITH BILATERAL UPPER SIDE RAILS UP. CALL LIGHT WITHIN EASY REACH. CONTACT ISOLATION MAINTAINED. WILL CONTINUE TO MONITOR.
[2017-02-10 08:00] VITALS: BP_SYST 170; BP_SYST 193; BP_DIAS 169; BP_DIAS 71
[2017-02-10] MEDS: PANTOPRAZOLE 40 MG/PACK PACK GT SCH (10:28)
[2017-02-10] MEDS: FOLIC ACID 1 MG TABLET GT SCH (10:29)
[2017-02-10] MEDS: NIFEdipine (10MG) 10 MG CAPSULE GT SCH ×2 (10:29→17:44)
[2017-02-10] MEDS: LACTOBACILLUS RHAMNOSUS GG 1 EACH CAP.SPRINK GT SCH ×2 (10:29→17:44)
[2017-02-10] MEDS: FERROUS SULFATE UDC 300 MG/5 ML UDC GT SCH (10:30)
[2017-02-10] MEDS: MINOXIDIL (2.5MG) 2.5 MG TABLET GT SCH (10:30)
[2017-02-10] MEDS: VIT B CMPLX 3/FA/VIT C/BIOTIN 1 TAB TABLET PO SCH (10:30)
[2017-02-10] MEDS: LOSARTAN POTASSIUM 50 MG TABLET GT SCH (10:30)
[2017-02-10] MEDS: DOCUSATE SODIUM LIQ 100 MG/10 ML UDC GT SCH ×2 (10:30→17:44)
[2017-02-10] MEDS: CARVEDILOL 12.5 MG TABLET PO SCH ×2 (10:31→20:55)
[2017-02-10] MEDS: clonazePAM 0.5 MG TABLET GT SCH ×2 (10:31→20:55)
[2017-02-10] MEDS: LINEZOLID 600 MG TABLET PO SCH ×2 (10:31→20:55)
[2017-02-10] MEDS: LIOTHYRONINE SODIUM (25 MCG) 25 MCG TABLET GT SCH ×2 (10:32→20:54)
[2017-02-10] MEDS: INSULIN REGULAR, HUMAN 100 UNIT/ML 3 ML VIAL SQ PRN ×2 (10:46→20:58)
[2017-02-10] MEDS: INSULIN DETEMIR 100 UNIT/ML CARTRIDGE SQ SCH ×2 (11:29→22:41)
--- NOTE | 2017-02-10 11:42 | NUR ---
MS RN NOTES PT'S BLOOD SUGAR WAS 408. 15 UNITS OF REGULAR INSULIN WAS ADMINISTERED AND DR. ELDER WAS NOTIFIED. BLOOD SUGAR WAS RECHECKED AND IS NOW 414. DR. ELDER ORDERED THAT ANOTHER 4 UNITS OF LEVIMER BE ADMINISTERED. THIS IS TO BE GIVEN ALONG WITH THE 8U NITS WHICH SHE GETS AT 2200.
[2017-02-10] MEDS: HYDROCODONE/APAP 5/325MG 1 EACH TABLET PO PRN (14:03)
[2017-02-10 14:47] LABS: CALCIUM, SERUM 8.5 mg/dL (8.5-10.1); CREATININE 2.4 mg/dL (0.6-1.3); POTASSIUM 3.8 mmol/L (3.5-5.1)
[2017-02-10] MEDS: diphenhydrAMINE HCL 50 MG/ML VIAL IV PRN (14:54)
[2017-02-10 16:00] VITALS: BP 174/91
--- NOTE | 2017-02-10 17:55 | NUR ---
MS RN NOTES PT'S 1700 BLOOD SUGAR WAS 62. ORANGE JUICE WAS ADMINISTERED. BLOOD SUGAR WAS RECHECKED AFTER 15 MIN AND IS NOW 79. MADE AWARE. NO NEW ORDERS GIVEN.
--- NOTE | 2017-02-10 19:00 | NUR ---
MS RN CLOSING NOTES PT. IN STABLE CONDITION. ALL NEEDS MET DURING SHIFT AND ORDERS CARRIED OUT ACCORDINGLY. NO ACUTE CHANGES IN CONDITION DURING SHIFT. PT. WAS KEPT DRY AND CLEANED. REPOSITIONED Q2 HRS AND HEELS OFFLOADED. ALL SAFETY MEASURES IN PLACE. WILL ENDORSE TO NIGHTSHIFT NURSE FOR CASSI.
--- NOTE | 2017-02-10 19:15 | NUR ---
RN NOTES RECEIVED PT AWAKE, HOB ELEVATED, NO SOB, NOT IN DISTRESS, ON ROOM AIR AND TOLERATED WELL. PT ALERT AND ORIENTED X2, DENIES ANY PAIN AND DISCOMFORT AT THIS TIME. NO SIGNS OF HYPO OR HYPERGLYCEMIA NOTED. RIGHT UPPER CHEST WALL PERMA CATH INTACT. MIDLINE ON RIGHT UPPER ARM PATENT AND INTACT. GT INTACT, NO RESIDUAL NOTED, POSITIVE PLACEMENT UPON AUSCULTATION. BOTH HEELS OFFLOADED. KEPT COMFORTABLE AND ATTENDED. KEPT BED IN THE LOWEST POSITION, LOCKED, SIDE RAILS X3 UP, WITH CALL LIGHT WITHIN REACH. WILL CONTINUE TO MONITOR PT.
[2017-02-10 20:00] VITALS: BP 165/103
--- NOTE | 2017-02-10 20:58 | NUR ---
RN NOTES ALL DUE MEDS GIVEN. BLOOD SUGAR CHECKED 164 MG/DL , 3 UNITS REGULAR INSULIN GIVEN. WILL CONTINUE TO MONITOR PT.
--- NOTE | 2017-02-10 22:41 | NUR ---
RN NOTES BLOOD SUGAR CHECKED 245 MG/DL, DUE LEVEMIR 8 UNITS GIVEN SUBCU. WILL CONTINUE TO MONITOR PT.
[2017-02-10] MEDS: ZOLPIDEM TARTRATE 5 MG TABLET PO PRN (23:19)
--- NOTE | 2017-02-10 23:19 | NUR ---
RN NOTES PT HAS DIFFICULTY SLEEPING, AMBIEN 5 MG TAB GIVEN. WILL CONTINUE TO MONITOR PT.
[2017-02-11] MEDS: BLOOD SUGAR DIAGNOSTIC 1 EACH STRIP IN SCH ×6 (01:05→21:11)
[2017-02-11] MEDS: INSULIN REGULAR, HUMAN 100 UNIT/ML 3 ML VIAL SQ PRN ×3 (01:07→21:04)
--- NOTE | 2017-02-11 01:07 | NUR ---
RN NOTES BLOOD SUGAR CHECKED 250 MG.DL, 6 UNITS INSULIN GIVEN SUBCU. WILL CONTINUE TO MONITOR PT.
[2017-02-11] MEDS: diphenhydrAMINE HCL 50 MG/ML VIAL IV PRN ×3 (01:43→20:25)
--- NOTE | 2017-02-11 01:43 | NUR ---
RN NOTES PT WAS NOTED ITCHING ON HER BACK, BENADRYL 50MG GIVEN IV. WILL CONTINUE TO MONITOR PT.
--- NOTE | 2017-02-11 02:15 | NUR ---
RN NOTES SNACKS GIVEN TO THE PT, PT TOOK BUCK CRACKERS AND PUDDING AND TOLERATED WELL. WILL CONTINUE TO MONITOR PT.
--- NOTE | 2017-02-11 05:20 | NUR ---
RN NOTES BLOOD SUGAR CHECKED 19 MG/DL, PT EASILY AROUSABLE, VERBAL, DENIES ANY PAIN AND DISCOMFORT. BP 176/120 HR 96 RR 18. D50% IV AND PT TAAK ORANGE JUICE AND TOLERATED WELL. WILL CHECK BLOOD SUGAR AFTER 20 MIN.
[2017-02-11] MEDS: DEXTROSE 50%-WATER 50 ML DISP.SYRIN IV PRN (05:28)
--- NOTE | 2017-02-11 05:45 | NUR ---
RN NOTES BLOOD SUGAR CHECKED 110MG/DL, PT AWAKE, ALERT AND VERBAL, DENIES ANY PAIN AND DISCOMFORT. WILL CONTINUE TO MONITOR PT.
[2017-02-11] MEDS: HEPARIN SODIUM, PORCINE 5000 UNITS/1 ML VIAL SQ SCH ×3 (05:53→20:28)
[2017-02-11] MEDS: ZOSYN IVPB 2.25 G in IV D5W 50ml IV SCH ×3 (05:54→17:24)
[2017-02-11] MEDS: hydrALAZINE HCL 50 MG TABLET GT SCH ×3 (05:54→20:24)
--- NOTE | 2017-02-11 06:10 | NUR ---
RN NOTES BLOOD SUGAR CHECKED 132 MG/DL. , PT AWAKE, ALERT AND VERBAL. NO SIGNS OF HYPO AND HYPERGLYCEMIA NOTED. WILL CONTINUE TO MONITOR.
--- NOTE | 2017-02-11 07:35 | NUR ---
RN NOTES PT ASLEEP, EASILY AROUSABLE, VERBAL, HOB ELEVATED, NO SOB, NOT IN DISTRESS, DENIES ANY PAIN AND DISCOMFORT. ON ROOM AIR TOLERATED WELL WITH GOOD SATURATION. VITAL SIGNS AND BLOOD SUGAR MONITORED. OFFERED SNACKS IN BETWEEN INSULIN DOSE GIVEN. NO COMPLAIN OF PAIN, NO EPISODE OF NAUSEA AND VOMITING. KEPT CLEAN AND DRY, WOUND CARE DONE. ALL NEEDS MET. ENDORSED TO MORNING RN FOR CONTINUITY OF CARE.
--- NOTE | 2017-02-11 08:00 | NUR ---
MS RN NOTES RECEIVED REPORT FROM PM SHIFT. PATIENT IS CURRENTLY A/OX2. PATIENT IS RESTING IN BED. NO S/S OF DISTRESS OR SOB NOTED. IV IS PATENT AND INTACT. BED IS IN LOW LOCKED POSITION. CALL LIGHT IS WITHIN REACH. WILL CONTINUE TO MONITOR THROUGHOUT SHIFT.
[2017-02-11] MEDS: FERROUS SULFATE UDC 300 MG/5 ML UDC GT SCH (08:27)
[2017-02-11] MEDS: DOCUSATE SODIUM LIQ 100 MG/10 ML UDC GT SCH ×2 (08:27→17:25)
[2017-02-11] MEDS: LIOTHYRONINE SODIUM (25 MCG) 25 MCG TABLET GT SCH ×2 (08:27→20:59)
[2017-02-11] MEDS: VIT B CMPLX 3/FA/VIT C/BIOTIN 1 TAB TABLET PO SCH (08:27)
[2017-02-11] MEDS: PANTOPRAZOLE 40 MG/PACK PACK GT SCH (08:28)
[2017-02-11] MEDS: NIFEdipine (10MG) 10 MG CAPSULE GT SCH ×2 (08:28→17:25)
[2017-02-11] MEDS: LINEZOLID 600 MG TABLET PO SCH ×2 (08:28→20:25)
[2017-02-11] MEDS: LACTOBACILLUS RHAMNOSUS GG 1 EACH CAP.SPRINK GT SCH ×2 (08:28→17:25)
[2017-02-11] MEDS: FOLIC ACID 1 MG TABLET GT SCH (08:28)
[2017-02-11] MEDS: clonazePAM 0.5 MG TABLET GT SCH ×2 (08:28→20:24)
[2017-02-11] MEDS: MINOXIDIL (2.5MG) 2.5 MG TABLET GT SCH (08:28)
[2017-02-11] MEDS: LOSARTAN POTASSIUM 50 MG TABLET GT SCH (08:29)
[2017-02-11] MEDS: CARVEDILOL 12.5 MG TABLET PO SCH ×2 (08:29→20:24)
[2017-02-11] MEDS: INSULIN DETEMIR 100 UNIT/ML CARTRIDGE SQ SCH (08:31)
[2017-02-11 12:21] LABS: BASOPHILS % (AUTO) 0.1 % (0.0-2.0); EOSINOPHILS # (AUTO) 0.2 /CMM (0.0-0.7); EOSINOPHILS % (AUTO) 3.1 % (0.0-6.0); HEMATOCRIT 38 % (33-45); HEMOGLOBIN 12.4 g/dL (11.5-14.8); LYMPHOCYTES # (AUTO) 1.2 /CMM (0.8-4.8); LYMPHOCYTES % (AUTO) 19.5 % (20.0-44.0); MEAN CORPUSCULAR HEMOGLOBIN 33 PG (26.0-33.0); MEAN CORPUSCULAR HGB CONC 33 g/dl (31.0-36.0); MEAN CORPUSCULAR VOLUME 100 fL (82-100); MONOCYTES # (AUTO) 0.4 /CMM (0.1-1.30); MONOCYTES % (AUTO) 6.4 % (2.0-12.0); NEUTROPHILS # (AUTO) 4.3 /CMM (1.8-8.9); NEUTROPHILS % (AUTO) 70.9 % (43.0-81.0); PLATELET COUNT (AUTO) 365 /CMM (150-450); RDW COEFFICIENT OF VARIATION 14.7 (11.5-15.0); RED BLOOD CELL COUNT(AUTO) 3.79 MIL/uL (4.0-5.2)
--- NOTE | 2017-02-11 12:25 | NUR ---
MS RN NOTES PATIENT'S POC GLUCOSE AT 434. ADMINISTERED 15 UNITS OF REGULAR INSULIN BASED ON SLIDING SCALE AND NOTIFIED DR. ELDER. NO NEW ORDERS GIVEN. WILL CONTINUE TO MONITOR.
[2017-02-11 12:38] LABS: CALCIUM, SERUM 9.2 mg/dL (8.5-10.1); CREATININE 2.9 mg/dL (0.6-1.3); MAGNESIUM 2.5 mg/dL (1.8-2.4); PHOSPHORUS 4.8 mg/dL (2.5-4.9); POTASSIUM 4.7 mmol/L (3.5-5.1)
--- NOTE | 2017-02-11 12:45 | NUR ---
MS RN NOTES RECEIVED CRITICAL LAB RESULTS FROM [facility]. PATIENT'S BLOOD GLUCOSE WAS AT 443. NOTIFIED DR. ELDER OF THE RESULT. NO NEW ORDERS GIVEN. WILL CONTINUE TO MONITOR PATIENT.
[2017-02-11 16:00] VITALS: BP 177/102
[2017-02-11] MEDS: CLONIDINE HCL 0.3 MG/24H PTWK 1 EA PATCH TD SCH (17:24)
--- NOTE | 2017-02-11 19:10 | NUR ---
MS RN NOTES PATIENT IS A/OX2. IV IS PATENT AND INTACT. MIDLINE IS PATENT INTACT. NO SOB NOTED. NO ACUTE DISTRESS NOTED. ALL PATIENT NEEDS HAVE BEEN MET THROUGHOUT SHIFT. BED IS IN LOWEST LOCKED POSITION. CALL LIGHT IS WITHIN REACH. WILL ENDORSE CARE TO PM SHIFT.
--- NOTE | 2017-02-11 19:25 | NUR ---
RN OPEN NOTES RECEIVED PATIENT AWAKE IN BED. A/O X2. NO SIGNS OF DISTRESS OR DISCOMFORT. BREATHING EVEN AND UNLABORED. HAS RCW PERMACATH AND JOAQUIM MIDLINE, PATENT AND INTACT, NO SIGNS OF REDNESS OR INFILTRATION. BED IN LOW LOCKED POSITION WITH SIDE RAILS X3. CALL LIGHT WITHIN REACH. WILL CONTINUE TO MONITOR.
[2017-02-11 20:00] VITALS: BP 167/101
--- NOTE | 2017-02-11 20:25 | NUR ---
RN NOTES ADMINISTERED BENADRYL 50MG IV ORDERED FOR GENERALIZED ITCHING. WILL CONTINUE TO MONITOR.
[2017-02-11] MEDS ORDERED: INSULIN DETEMIR 100 UNIT/ML CARTRIDGE SQ SCH (22:00)
[2017-02-12] MEDS: ZOSYN IVPB 2.25 G in IV D5W 50ml IV SCH ×3 (00:08→12:48)
[2017-02-12] MEDS ORDERED: IV NS 0.9% 250 ML IV ONE (00:13)
[2017-02-12] MEDS ORDERED: IV SET PRIMARY PUMP SET 1 EA INFUS.SET MC ONE (00:13)
--- NOTE | 2017-02-12 00:13 | NUR ---
RN NOTES PULLED NS 250ML BAG TO KEEP MIDLINE OPEN. WILL CONTINUE TO MONITOR.
[2017-02-12] MEDS: BLOOD SUGAR DIAGNOSTIC 1 EACH STRIP IN SCH ×5 (00:15→17:30)
--- NOTE | 2017-02-12 02:35 | NUR ---
RN NOTES CHECKED BS AT PATIENT REQUEST. PATIENT STATES SHE FEELS LIKE HER BS IS LOW. BS 31. PATIENT AWAKE AND ABLE TO FOLLOW COMMANDS. STATES SHE JUST FEELS TIRED. NO OTHER S/S OF HYPOGLYCEMIA. ADMINISTERED DEXTROSE 50% PER PROTOCOL. CHARGE NURSE MADE AWARE. WILL CONTINUE TO MONITOR.
[2017-02-12] MEDS: DEXTROSE 50%-WATER 50 ML DISP.SYRIN IV PRN (02:37)
--- NOTE | 2017-02-12 02:37 | NUR ---
RN NOTES WAS NOT ABLE TO SCAN DEXTROSE 50% INJ. [employer] STATES THE WRONG BARCODE FOR PATIENT BUT THIS IS THE ONLY FORM OF D50 AVAILABLE IN [employer]. CHARGE NURSE AWARE, TOLD ME TO JUST ENTER IT MANUALLY. WILL NOTIFY PHARMACY.
--- NOTE | 2017-02-12 03:00 | NUR ---
RN NOTES RECHECKED BS 125. PATIENT AWAKE ALERT ABLE TO FOLLOW COMMANDS. NO SIGNS OF DISCOMFORT OR DISTRESS. WILL CONTINUE TO MONITOR.
--- NOTE | 2017-02-12 04:25 | NUR ---
RN NOTES PATIENT BS 148, PER CHARGE DO NOT ADMINISTER INSULIN COVERAGE DUE TO RECENT DROP IN BS. WILL CONTINUE TO MONITOR.
[2017-02-12] MEDS: hydrALAZINE HCL 50 MG TABLET GT SCH ×2 (04:26→13:15)
[2017-02-12] MEDS: HEPARIN SODIUM, PORCINE 5000 UNITS/1 ML VIAL SQ SCH ×2 (04:29→13:20)
--- NOTE | 2017-02-12 06:36 | NUR ---
RN CLOSING NOTES PATIENT RESTING IN BED. A/O X2. NO SIGNS OF DISTRESS OR DISCOMFORT. BREATHING EVEN AND UNLABORED. HAS RCW PERMACATH AND JOAQUIM MIDLINE, PATENT AND INTACT, NO SIGNS OF REDNESS OR INFILTRATION. NO SIGNIFICANT CHANGES THROUGH THE NIGHT. ALL NEEDS MET. PATIENT KEPT CLEAN DRY AND COMFORTABLE. REPOSITIONED Q2H. BED IN LOW LOCKED POSITION WITH SIDE RAILS X3. CALL LIGHT WITHIN REACH. WILL ENDORSE TO AM SHIFT FOR CASSI.
[2017-02-12 07:20] LABS: CALCIUM, SERUM 8.9 mg/dL (8.5-10.1); CREATININE 2.8 mg/dL (0.6-1.3); MAGNESIUM 2.3 mg/dL (1.8-2.4); PHOSPHORUS 4.3 mg/dL (2.5-4.9)
--- NOTE | 2017-02-12 07:52 | NUR ---
MS RN NOTES PATIENT IS IN BED. PATIENT IS A/OX2. IV IS PATENT AND INTACT. MIDLINE IS PATENT AND INTACT. NO S/S OF DISTRESS NOTED. NO S/S OF SOB NOTED. PATIENT STATES SHE IS ITCHY AND REQUESTING BENADRYL. CALL LIGHT WITHIN REACH. BED IS IN LOWEST LOCKED POSITION. WILL CONTINUE TO MONITOR THROUGHOUT SHIFT.
[2017-02-12 08:00] VITALS: BP 180/109
[2017-02-12 08:43] LABS: BASOPHILS # (AUTO) 0.1 /CMM (0.0-0.2); BASOPHILS % (AUTO) 0.8 % (0.0-2.0); EOSINOPHILS # (AUTO) 0.3 /CMM (0.0-0.7); HEMATOCRIT 35 % (33-45); HEMOGLOBIN 11.7 g/dL (11.5-14.8); LYMPHOCYTES # (AUTO) 1.6 /CMM (0.8-4.8); LYMPHOCYTES % (AUTO) 19.7 % (20.0-44.0); MEAN CORPUSCULAR HEMOGLOBIN 33 PG (26.0-33.0); MEAN CORPUSCULAR HGB CONC 33 g/dl (31.0-36.0); MEAN CORPUSCULAR VOLUME 100 fL (82-100); MONOCYTES # (AUTO) 0.6 /CMM (0.1-1.30); MONOCYTES % (AUTO) 7.1 % (2.0-12.0); NEUTROPHILS # (AUTO) 5.4 /CMM (1.8-8.9); NEUTROPHILS % (AUTO) 68.4 % (43.0-81.0); PLATELET COUNT (AUTO) 373 /CMM (150-450); RDW COEFFICIENT OF VARIATION 14.1 (11.5-15.0); RED BLOOD CELL COUNT(AUTO) 3.52 MIL/uL (4.0-5.2)
[2017-02-12] MEDS: INSULIN DETEMIR 100 UNIT/ML CARTRIDGE SQ SCH (09:43)
[2017-02-12] MEDS: LIOTHYRONINE SODIUM (25 MCG) 25 MCG TABLET GT SCH (09:44)
[2017-02-12] MEDS: FERROUS SULFATE UDC 300 MG/5 ML UDC GT SCH (09:44)
[2017-02-12] MEDS: DOCUSATE SODIUM LIQ 100 MG/10 ML UDC GT SCH (09:44)
[2017-02-12] MEDS: clonazePAM 0.5 MG TABLET GT SCH (09:44)
[2017-02-12] MEDS: NIFEdipine (10MG) 10 MG CAPSULE GT SCH ×2 (09:44→17:23)
[2017-02-12] MEDS: CARVEDILOL 12.5 MG TABLET PO SCH (09:45)
[2017-02-12] MEDS: MINOXIDIL (2.5MG) 2.5 MG TABLET GT SCH (09:45)
[2017-02-12] MEDS: VIT B CMPLX 3/FA/VIT C/BIOTIN 1 TAB TABLET PO SCH (09:45)
[2017-02-12] MEDS: LACTOBACILLUS RHAMNOSUS GG 1 EACH CAP.SPRINK GT SCH (09:45)
[2017-02-12] MEDS: FOLIC ACID 1 MG TABLET GT SCH (09:45)
[2017-02-12] MEDS: LOSARTAN POTASSIUM 50 MG TABLET GT SCH (09:46)
[2017-02-12] MEDS: LINEZOLID 600 MG TABLET PO SCH (09:46)
[2017-02-12] MEDS: PANTOPRAZOLE 40 MG/PACK PACK GT SCH (09:46)
[2017-02-12] MEDS: diphenhydrAMINE HCL 50 MG/ML VIAL IV PRN (10:00)
[2017-02-12] MEDS ORDERED: INSU100I19 SQ ×2 (10:37)
[2017-02-12] MEDS: INSULIN REGULAR, HUMAN 100 UNIT/ML 3 ML VIAL SQ PRN ×2 (13:20→17:33)
--- NOTE | 2017-02-12 13:25 | NUR ---
MS RN NOTES PATIENT BLOOD SUGAR AT 475. 15 UNITS OF REGULAR GIVEN AND DR. ELEDR MADE AWARE. NO NEW ORDERS GIVEN
[2017-02-12 16:00] VITALS: BP 161/106
--- NOTE | 2017-02-12 16:45 | NUR ---
MS BASIA NOTES CALLED [facility] AND GAVE REPORT TO BASIA CARCAMO. DONA WAS INFORMED OF THE PATIENT'S HISTORY AND CURRENT DIAGNOSIS. DONA WAS INFORMED OF PATIENT'S BLOOD GLUCOSE AND BLOOD PRESSURE TRENDS. ALL QUESTIONS ANSWERED AND DONA ACCEPTED REPORT.
[2017-02-12 17:23] VITALS: BP 169/98
[2017-02-12] MEDS: CLONIDINE HCL 0.1 MG TABLET PO PRN (17:23)
--- NOTE | 2017-02-12 18:30 | NUR ---
MS RN NOTES PATIENT DISCHARGED TO [facility]. PATIENT'S MOM ELIJAH WAS AWARE AND CALLED. MIDLINE WAS REMOVED. DISCHARGE PROTOCOL FOLLOWED. , DR. ELDER IS AWARE OF ALL ABNORMAL LABS. PATIENT HAD NO BELONGINGS, BELONGINGS FORM SIGNED BY 2 RN'S. PATIENT'S DISCHARGE INSTRUCTIONS WERE GIVEN TO THE PATIENT AND EMT. PATIENT WAS UNABLE TO SIGN SO DISCHARGE FORMS WERE SIGNED BY 2 RN'S. ALL PHOTOS TAKEN AND PLACED IN CHART. ALL PATIENT NEEDS HAVE BEEN MET. PATIENT WAS DISCHARGED IN STABLE CONDITION. NO NEW CHANGES. PATIENT TRANSFERRED WITH EMT. DISCHARGE PACKET GIVEN TO EMT TO TAKE TO SNF.
== END 2017-02-12 18:00 | DRG 460 ==
LOC: ER 13:52 → MED 14:55
PROVIDERS: ADMIT Family Medicine; ATTEND Family Medicine
PROC: 05H533Z Insertion of Infusion Device into Right Subclavian Vein, Percutaneous Approach (ICD-10-PCS; principal; 2017-02-04)
PROC: 5A1D60Z (ICD-10-PCS; principal; 2017-02-04)
DX: I12.0 Hypertensive chronic kidney disease with stage 5 chronic kidney disease or end stage renal disease (principal); G93.40 Encephalopathy, unspecified; R53.2 Functional quadriplegia; E11.22 Type 2 diabetes mellitus with diabetic chronic kidney disease; N18.6 End stage renal disease; N39.0 Urinary tract infection, site not specified; R13.10 Dysphagia, unspecified; Z99.2 Dependence on renal dialysis; D75.89 Other specified diseases of blood and blood-forming organs; E03.9 Hypothyroidism, unspecified; Z87.891 Personal history of nicotine dependence; Z93.1 Gastrostomy status; B95.2 Enterococcus as the cause of diseases classified elsewhere; B96.4 Proteus (mirabilis) (morganii) as the cause of diseases classified elsewhere; Z16.21 Resistance to vancomycin; E83.9 Disorder of mineral metabolism, unspecified
CPT/HCPCS: 36415; 36569; 80048-TC; 80061-TC; 81000-TC; 82945-TC; 82947-TC; 82962-TC; 83605-TC; 83735-TC; 84100-TC; 84484-TC; 85025-TC; 85730-TC; 87040-TC; 87081-TC; 87086-TC; 87186-TC; 90935-TC; 92526; 92611-TC; A4216; A4606; A6402; J0360; J0696; J1200; J1630; J1644; J1815; J2060; J2185; J2270; J2543; J7030; J7050; J7060; Z7610

== ENCOUNTER 2017-02-23 18:35 | Inpatient (IN) | payer MEDICAID ==
[~2017-02-23] VITALS: Ht 185.4 cm; Wt 67.1 kg
[~2017-02-23 18:35] MED LIST changes: +INSU100V3 SQ; -POLY17PO4 GT
--- NOTE | 2017-02-23 18:48 | NUR ---
Mac from HD center due to james blood pressure after dialysis. Patient is awake, response to verbal stimuli however, patient is non verbal. Appears in no apparent distress, respiration even and unlabored,. skin is warm to touch and non diaphoretic. Patient is afebrile. Hd cath on rcw noted, covered with dry dressing. Connected patient to tele monitor. Pending MD evaluation.
--- NOTE | 2017-02-23 19:06 | NUR ---
REPORT GIVEN TO BASIA ELIZALDE
[2017-02-23] MEDS ORDERED: hydrALAZINE HCL IV 20 MG VIAL ONE ×2 (19:16→20:49)
[2017-02-23] MEDS ORDERED: hydrALAZINE HCL IV 20 MG VIAL IV ONE ×2 (19:30→21:00)
--- NOTE | 2017-02-23 19:30 | NUR ---
Hydralazine 10mg ivp given for bp 206/129, hr 94. will continue to monitor vital signs.
[2017-02-23] MEDS ORDERED: MORPHINE SULFATE INJ 4 MG/ML DISP.SYRIN ONE (19:43)
[2017-02-23] MEDS ORDERED: MORPHINE SULFATE INJ 2 MG/ML DISP.SYRIN IV ONE (20:00)
--- NOTE | 2017-02-23 20:43 | NUR ---
PAGED DR DARRON ENGLE
[2017-02-23 21:02] LABS: BASOPHILS # (AUTO) 0.1 /CMM (0.0-0.2); BASOPHILS % (AUTO) 1.5 % (0.0-2.0); EOSINOPHILS # (AUTO) 0.3 /CMM (0.0-0.7); EOSINOPHILS % (AUTO) 4.3 % (0.0-6.0); HEMATOCRIT 38 % (33-45); HEMOGLOBIN 12.4 g/dL (11.5-14.8); LYMPHOCYTES # (AUTO) 2.2 /CMM (0.8-4.8); LYMPHOCYTES % (AUTO) 27.4 % (20.0-44.0); MEAN CORPUSCULAR HEMOGLOBIN 32 PG (26.0-33.0); MEAN CORPUSCULAR HGB CONC 33 g/dl (31.0-36.0); MEAN CORPUSCULAR VOLUME 98 fL (82-100); MONOCYTES # (AUTO) 0.5 /CMM (0.1-1.30); MONOCYTES % (AUTO) 6.4 % (2.0-12.0); NEUTROPHILS # (AUTO) 4.9 /CMM (1.8-8.9); NEUTROPHILS % (AUTO) 60.4 % (43.0-81.0); PLATELET COUNT (AUTO) 385 /CMM (150-450); RDW COEFFICIENT OF VARIATION 14.1 (11.5-15.0); RED BLOOD CELL COUNT(AUTO) 3.91 MIL/uL (4.0-5.2)
--- NOTE | 2017-02-23 21:10 | NUR ---
CALLED [facility]SING [facility] FOR TELE BED
--- NOTE | 2017-02-23 21:12 | NUR ---
Patient is responsive to verbal and tactile stimuli, appears comfortable at this time, watching tv. ongoing monitoring.
[2017-02-23 21:17] LABS: ALBUMIN 2.6 g/dL (3.4-5.0); BILIRUBIN,DIRECT 0.1 mg/dL (0.0-0.2); BILIRUBIN,TOTAL 0.4 mg/dL (0.2-1.0); CALCIUM, SERUM 8.7 mg/dL (8.5-10.1); CREATININE 1.8 mg/dL (0.6-1.3); POTASSIUM 3.2 mmol/L (3.5-5.1); TOTAL PROTEIN, SERUM 6.9 g/dL (6.4-8.2)
[2017-02-23 21:19] LABS: TROPONIN I 0.332 ng/mL (0.00-0.056)
--- NOTE | 2017-02-23 21:32 | NUR ---
TELE 114-2
[2017-02-23 21:35] LABS: EOSINOPHILS % (MANUAL) 2 % (0-4); LYMPHOCYTES % (MANUAL) 28 % (16-48); MONOCYTES % (MANUAL) 11 % (0-11.0); NEUTROPHILS % (MANUAL) 59 (42-76)
[2017-02-23] MEDS ORDERED: INSULIN REGULAR, HUMAN 100 UNIT/ML 10 ML VIAL ONE (21:40)
[2017-02-23] MEDS ORDERED: NIMODIPINE (30MG) 30 MG CAPSULE ONE (21:40)
--- NOTE | 2017-02-23 21:54 | NUR ---
NIFEDIPINE 60 MG GT GIVEN ONE TIME PRIOR TO ADMISSION PER DR DARRON ENGLE'S ORDER. BLOOD SUGAR CHECKED, 449MG/DL, 6 UNITS GIVEN TO THE RIGHT LOWER QUADRANT SUBQ PER IBRAHIMA 'S VERBAL ORDER, WITNESSED AND VERIFIED BY CHARGE NURSE LEONIDAS.
[2017-02-23] MEDS ORDERED: INSULIN REGULAR, HUMAN 100 UNIT/ML 10 ML VIAL SQ ONE (22:00)
--- NOTE | 2017-02-23 22:05 | NUR ---
Report given to Jae FLOR for huber admission and curry.
--- NOTE | 2017-02-23 23:01 | NUR ---
ADMIT RN NOTES RECEIVED PT FROM ER, AOX2, ON RM AIR, NO SIGN OF DISTRESS OR C/O OF PAIN , HEAD TOE ASSESSMENT DONE SACRAL REDNESS NOTED PICTURES TAKEN WELL BI LATERAL DTI ON HEEL NOTED, UPON ADMITION BP 179/101, P 103 MINOXDE GIVEN PER GT CONT TO MONITOR PT, ALL NEEDS ATTENDED KEPT CLEAN AND DRY, WITH GT FEEDING ORDER, MD NOTIFIED AWAITING FOR CLARIFICATION OF MEDICATION.
--- NOTE | 2017-02-23 23:03 | NUR ---
Transferre to [facility] room 114-2 via als protocol. Patient seen vomited x1 while on the way to hospital bed. Jae FLOR is made aware and at bedside for eval.
[2017-02-23] MEDS ORDERED: MINOXIDIL (2.5MG) 2.5 MG TABLET ONE (23:19)
[2017-02-23] MEDS: MINOXIDIL (2.5MG) 2.5 MG TABLET GT SCH (23:52)
[2017-02-24] VITALS (9 sets, daily range): BP systolic 148–224; BP diastolic 78–129
[2017-02-24] MEDS ORDERED: DEXTROSE 50%-WATER 50 ML DISP.SYRIN IV PRN ×3 (03:00→09:30)
[2017-02-24] MEDS ORDERED: RENAL NOVASOURCE 1,000 ML BOTTLE GT PRN ×3 (03:00→09:00)
[2017-02-24] MEDS ORDERED: HEPARIN SODIUM, PORCINE 5000 UNITS/1 ML VIAL ONE (03:24)
[2017-02-24] MEDS ORDERED: HYDROCODONE/APAP 5/325MG 1 EACH TABLET ONE (03:40)
--- NOTE | 2017-02-24 03:40 | NUR ---
RN SPOKE TO MD ENGLE, LUKAS 7.5 NOT AVAILABLE, WITH NEW ORDER TO CHANGE IT TO NORCO 5/325.
[2017-02-24] MEDS: HYDROCODONE/APAP 5/325MG 1 EACH TABLET GT PRN ×2 (03:48→18:40)
[2017-02-24] MEDS: HEPARIN SODIUM, PORCINE 5000 UNITS/1 ML VIAL SQ SCH ×4 (03:51→21:18)
[2017-02-24] MEDS ORDERED: INSULIN REGULAR, HUMAN 100 UNIT/ML 3 ML VIAL SQ SCH (04:00)
[2017-02-24] MEDS ORDERED: hydrALAZINE HCL 25 MG TABLET GT PRN (05:00)
--- NOTE | 2017-02-24 05:00 | NUR ---
0500AM HEPARIN NOT GIVEN, PT WITH SCHEDULED ORDER AT 0300AM GIVEN ORDERED AT 0300AM.
[2017-02-24] MEDS ORDERED: BLOOD SUGAR DIAGNOSTIC 1 EACH STRIP IN SCH ×3 (06:00→12:00)
[2017-02-24] MEDS ORDERED: CLONIDINE HCL 0.1 MG TABLET ONE (06:18)
[2017-02-24] MEDS ORDERED: CLONIDINE HCL 0.1 MG TABLET GT SCH ×2 (06:30)
--- NOTE | 2017-02-24 07:20 | NUR ---
ADMIT RN NOTES ENDORSED PT FROM ER, AOX2, ON RM AIR, NO SIGN OF DISTRESS OR C/O OF PAIN , HEAD TOE ASSESSMENT DONE SACRAL REDNESS NOTED PICTURES TAKEN WELL BI LATERAL DTI ON HEEL NOTED, UPON ADMITION BP 179/101, P 103 MINOXDE GIVEN PER GT CONT TO MONITOR PT, ALL NEEDS ATTENDED KEPT CLEAN AND DRY, WITH GT FEEDING ORDER, NOTIFIED AWAITING FOR CLARIFICATION OF MEDICATION. 0600 PT BP INCREASED TO 224/129, WITH BS 409, RN JESSICA NOTIFIED, WITH CLONODINE ORDER GIVEN 0.1MG BP DECREASED TO 180/102 HR 110, BS COVERAGE 10 UNITS GIVEN MD KADIE ROB NOTIFIED NNO CONT TO MONITOR, PT IN NO DISTRESS AT THIS TIME.
--- NOTE | 2017-02-24 08:45 | NUR ---
WOUND CARE CONSULT: PT PRESENTS WITH SCARRING TO SACRUM AND HEELS PRESENT ON ADMISSION. PT IS VERY THIN AND BONY. PT IS IMMOBILE AND INCONTINENT. PT ON OLMAN ISOFLEX LOW AIRLOSS BED. ALL SKIN PROTECTION MEASURES IN PLACE AND DISCUSSED WITH NURSING STAFF. IN AGREEMENT WITH PLAN OF CARE. Addendum: 02/24/17 at 0847 by TATE SMITH WNDNU Amended: Links added.
[2017-02-24] MEDS ORDERED: BLOOD SUGAR DIAGNOSTIC 1 EACH STRIP IN PRN (09:00)
[2017-02-24] MEDS ORDERED: INSULIN REGULAR, HUMAN 100 UNIT/ML 3 ML VIAL SQ PRN ×2 (09:00→09:30)
[2017-02-24] MEDS ORDERED: HEPARIN SODIUM, PORCINE 5000 UNITS/1 ML VIAL SQ SCH (09:00)
[2017-02-24] MEDS ORDERED: HYDROCODONE/APAP 5/325MG 1 EACH TABLET PO PRN (09:00)
[2017-02-24] MEDS ORDERED: PANTOPRAZOLE 40 MG TABLET.DR PO SCH (09:07)
[2017-02-24] MEDS ORDERED: ACETAMINOPHEN 650 MG/20.3 ML UDC GT PRN (09:30)
--- NOTE | 2017-02-24 09:30 | NUR ---
RN NOTES SPOKE WITH DR CRENSHAW REGARDING PT HAVING ELEVATED BP OVERNIGHT AND ELEVATED TROP. MADE NEW ORDERS
[2017-02-24] MEDS: FERROUS SULFATE UDC 300 MG/5 ML UDC GT SCH (09:57)
[2017-02-24] MEDS: DOCUSATE SODIUM LIQ 100 MG/10 ML UDC GT SCH ×2 (09:57→16:05)
[2017-02-24] MEDS: VIT B CMPLX 3/FA/VIT C/BIOTIN 1 TAB TABLET PO SCH (09:58)
[2017-02-24] MEDS: FOLIC ACID 1 MG TABLET GT SCH (09:58)
[2017-02-24] MEDS: clonazePAM 0.5 MG TABLET GT SCH ×2 (09:58→21:04)
[2017-02-24] MEDS: Z GUARD REMEDY 2 OZ OINT TP SCH (09:58)
[2017-02-24] MEDS: LOSARTAN POTASSIUM 50 MG TABLET GT SCH (09:59)
[2017-02-24] MEDS: CARVEDILOL 12.5 MG TABLET GT SCH ×2 (09:59→21:06)
[2017-02-24] MEDS: MINOXIDIL (2.5MG) 2.5 MG TABLET GT SCH ×2 (10:00→16:06)
[2017-02-24] MEDS ORDERED: POTASSIUM CHLORIDE 20 MEQ POWDER PACKET GT SCH (10:00)
[2017-02-24] MEDS: PANTOPRAZOLE 40 MG/PACK PACK GT SCH (10:01)
[2017-02-24] MEDS: INSULIN DETEMIR 100 UNIT/ML CARTRIDGE SQ SCH ×2 (10:13→21:43)
[2017-02-24 11:00] LABS: BASOPHILS % (AUTO) 0.1 % (0.0-2.0); EOSINOPHILS # (AUTO) 0.1 /CMM (0.0-0.7); EOSINOPHILS % (AUTO) 1.6 % (0.0-6.0); HEMATOCRIT 42 % (33-45); HEMOGLOBIN 13.8 g/dL (11.5-14.8); LYMPHOCYTES # (AUTO) 1.2 /CMM (0.8-4.8); MEAN CORPUSCULAR HEMOGLOBIN 32 PG (26.0-33.0); MEAN CORPUSCULAR HGB CONC 33 g/dl (31.0-36.0); MEAN CORPUSCULAR VOLUME 98 fL (82-100); MONOCYTES # (AUTO) 0.5 /CMM (0.1-1.30); MONOCYTES % (AUTO) 6.5 % (2.0-12.0); NEUTROPHILS # (AUTO) 5.5 /CMM (1.8-8.9); NEUTROPHILS % (AUTO) 75.8 % (43.0-81.0); PLATELET COUNT (AUTO) 344 /CMM (150-450); RDW COEFFICIENT OF VARIATION 14.9 (11.5-15.0); RED BLOOD CELL COUNT(AUTO) 4.28 MIL/uL (4.0-5.2); WHITE BLOOD COUNT (AUTO) 7.3 K/uL (4.3-11.0)
[2017-02-24 11:03] LABS: MAGNESIUM 1.8 mg/dL (1.8-2.4); PHOSPHORUS 3.6 mg/dL (2.5-4.9)
[2017-02-24 11:16] LABS: THYROID STIMULATING HORMONE 0.011 uIU/mL (0.358-3.74)
--- NOTE | 2017-02-24 11:23 | NUR ---
RN NOTES BS CHECKED NOTED 416MG/DL, WILL GIVE 10UNITS PER SS COVERAGE AND ALSO CALLED DR HARLEY'S OFFICE AWAITING FOR CALL BACK
[2017-02-24 11:25] LABS: TROPONIN I 0.888 ng/mL (0.00-0.056)
[2017-02-24 11:45] LABS: CREATININE 2.3 mg/dL (0.6-1.3); POTASSIUM 3.5 mmol/L (3.5-5.1)
[2017-02-24] MEDS: hydrALAZINE HCL 25 MG TABLET GT SCH ×2 (12:50→21:07)
--- NOTE | 2017-02-24 13:00 | NUR ---
RN NOTES SPOKE WITH DR HARLEY, REPORTED CURRENT BLOODSUGAR 416 MG/DL AND PT HAD ELEVATED BP. PER DR HARLEY TO START PT ON AGGRESSIVE SS.TURNOFF GTF AND START PT ON RENAL DIET. ORDERS READ BACK NOTED AND CARRIED OUT
[2017-02-24] MEDS ORDERED: NIFEdipine (10MG) 10 MG CAPSULE GT SCH (14:00)
[2017-02-24] MEDS: NITROGLYCERIN 30 GM TUBE TP SCH ×2 (16:06→21:13)
[2017-02-24] MEDS: NIFEdipine XL (30MG) 30 MG TAB PO SCH (16:07)
[2017-02-24] MEDS: INSULIN REGULAR, HUMAN 100 UNIT/ML 3 ML VIAL SQ PRN (17:49)
[2017-02-24] MEDS: BLOOD SUGAR DIAGNOSTIC 1 EACH STRIP IN SCH (17:50)
--- NOTE | 2017-02-24 18:34 | NUR ---
RN NOTES DRLAURAOF TROPONIN 0.88,NO NEW ORDER RECEIVED AT THIS TIME. LATEST BP 158/95
--- NOTE | 2017-02-24 20:16 | NUR ---
INITIAL RN NOTES RECEIVED PT FROM ER, AOX2, ON RM AIR, NO SIGN OF DISTRESS OR C/O OF NORCO GIVEN AT 1800 PT KEPT CLEAN AND DRY, WELL REPOSITIONED BP HIGH 160/103 HR 110 BP MEDS DUE TO BE GIVEN.
--- NOTE | 2017-02-24 20:58 | NUR ---
02/24 0330AM MEDS GIVEN BUT STILL HIGHLIGHT
[2017-02-24] MEDS: CLONIDINE HCL 0.1 MG TABLET GT SCH (21:19)
--- NOTE | 2017-02-24 21:44 | NUR ---
2200 LEVEMIR NOT GIVEN BS 81
[2017-02-25] VITALS: BP 170/100
[2017-02-25] MEDS: BLOOD SUGAR DIAGNOSTIC 1 EACH STRIP IN SCH ×5 (00:35→23:47)
[2017-02-25] MEDS: INSULIN REGULAR, HUMAN 100 UNIT/ML 3 ML VIAL SQ PRN ×4 (00:38→23:50)
[2017-02-25 04:00] VITALS: BP_SYST 150; BP_SYST 177; BP_DIAS 111; BP_DIAS 96
[2017-02-25] MEDS: HYDROCODONE/APAP 5/325MG 1 EACH TABLET GT PRN ×2 (05:19→13:20)
[2017-02-25] MEDS: hydrALAZINE HCL 25 MG TABLET GT SCH ×3 (05:21→20:49)
[2017-02-25] MEDS: HEPARIN SODIUM, PORCINE 5000 UNITS/1 ML VIAL SQ SCH ×3 (05:23→20:59)
--- NOTE | 2017-02-25 06:12 | NUR ---
RN CLOSING NOTES PT AWAKE C/O OF PAIN NO SIGN OF SOB, ON RM AIR, ST, 100, NORCO GIVEN FOR PAIN, BS 137 NO COVERAGE GIVEN, AM CARE PROVIDED PT KEPT CLEAN AND DRY, WELL REPOSITIONED, NOT SCREAMING, COMFORTABLE AT THIS TIME, ALL SAFETY MEASURES IN PLACE.
[2017-02-25] MEDS: PANTOPRAZOLE 40 MG/PACK PACK GT SCH ×2 (06:41→08:23)
--- NOTE | 2017-02-25 07:10 | NUR ---
RN INITIAL NOTE RECEIVED REPORT FROM JASSI LOCK NURSE FOR CASSI. PT A/O X3 COOPERATIVE. TELE ST. PRABHU #20G PATENT FLUSHED AND INTACT. PT ON RA NO S/S OF SOB. RESTING COMFORTABLY. ALL SAFETY MEASURES IN PLACE. WILL CONTINUE TO MONITOR.
--- NOTE | 2017-02-25 07:55 | NUR ---
RN NOTE HD NURSE @ BEDSIDE WILL HOLD B/P MEDICATIONS IN AM.
[2017-02-25 08:00] VITALS: BP 168/99
[2017-02-25] MEDS: DOCUSATE SODIUM LIQ 100 MG/10 ML UDC GT SCH ×2 (08:22→17:15)
[2017-02-25] MEDS: Z GUARD REMEDY 2 OZ OINT TP PRN (08:22)
[2017-02-25] MEDS: FERROUS SULFATE UDC 300 MG/5 ML UDC GT SCH (08:22)
[2017-02-25] MEDS: clonazePAM 0.5 MG TABLET GT SCH ×2 (08:23→20:43)
[2017-02-25] MEDS: FOLIC ACID 1 MG TABLET GT SCH (08:23)
[2017-02-25] MEDS: CLONIDINE HCL 0.1 MG TABLET GT SCH ×3 (08:24→20:42)
[2017-02-25] MEDS: CARVEDILOL 12.5 MG TABLET GT SCH ×2 (08:24→20:43)
[2017-02-25] MEDS: MINOXIDIL (2.5MG) 2.5 MG TABLET GT SCH ×3 (08:25→17:15)
[2017-02-25] MEDS: LOSARTAN POTASSIUM 50 MG TABLET GT SCH ×2 (08:25→10:21)
[2017-02-25] MEDS: NIFEdipine XL (30MG) 30 MG TAB PO SCH ×2 (08:25→10:21)
[2017-02-25] MEDS: NITROGLYCERIN 30 GM TUBE TP SCH ×2 (08:26→20:44)
[2017-02-25] MEDS: VIT B CMPLX 3/FA/VIT C/BIOTIN 1 TAB TABLET PO SCH (08:27)
[2017-02-25] MEDS: INSULIN DETEMIR 100 UNIT/ML CARTRIDGE SQ SCH ×2 (08:39→22:12)
[2017-02-25] MEDS: Z GUARD REMEDY 2 OZ OINT TP SCH (08:46)
[2017-02-25] MEDS ORDERED: CLONIDINE HCL 0.3 MG/24H PTWK 1 EA PATCH TD SCH (09:00)
--- NOTE | 2017-02-25 09:00 | NUR ---
RN NOTE LATE ENTRY PROTONIX NOT GIVEN WASTED DUE TO PM NURSE JASSI GIVING MEDICATION.
--- NOTE | 2017-02-25 10:22 | NUR ---
RN NOTE HD NURSE ADVISED BP MEDICATIONS TO BE GIVEN. BP WAS HIGH THROUGHOUT DIALYSIS. BP TAKEN 157/102. BP MEDICATION UNDONE FROM AM TO BE GIVEN NOW. WILL CONTINUE TO MONITOR CLOSELY.
[2017-02-25 12:00] VITALS: BP 133/88
[2017-02-25] MEDS: diphenhydrAMINE HCL 50 MG/ML VIAL IV PRN ×2 (14:23→19:32)
--- NOTE | 2017-02-25 15:23 | NUR ---
RN NOTE REPORT GIVEN TO ROBBIE FLOR PT WILL BE TRANSFERRED @ 1600 TO 2ND FLOOR RM 203. MOM @ BEDSIDE AND AWARE OF TRANSFER. ALL ORDERS CARRIED OUT. PT STABLE IV AND G-TUBE INTACT. PT CLEAN WARM AND DRY. WILL CONTINUE TO MONITOR UNTIL TRANSFER COMPLETE.
--- NOTE | 2017-02-25 15:45 | NUR ---
AGILE DEVELOPER PT TRANSFERRED TO 2ND FLOOR WITH CHARGE MADELINE FLOR. PT FAMILY WITH PT.
[2017-02-25 16:00] VITALS: BP 151/96
--- NOTE | 2017-02-25 16:25 | NUR ---
MS RN NOTES PATIENT TRANSFERRED FROM [facility] UNIT. PATIENT IS AWAKE, APPEARS ANXIOUS. EPISODE OF MOANING, C/O RIGHT LEG PAIN 3/10. ON ROOM AIR, NO SOB NOTED. MADE COMFORTABLE IN BED, V/S TAKEN AND RECORDED. IV IN LEFT FOREARM G20 PATENT AND INTACT. PER [facility] NURSE, PATIENT HAD HD EARLIER TODAY WITH 1.5L FLUID OUTPUT. PLACE CALL LIGHT WITHIN REACH. MOTHER AT THE BEDSIDE.
--- NOTE | 2017-02-25 17:30 | NUR ---
PATIENT IS SEEN BY DIETITIAN TODAY. PATIENT IS ON RENAL DIET AND TOLERATING WELL, PER PATIENT'S MOTHER, PATIENT IS EATING AND DRINKING FOOD, NOT USING GTUBE FOR FEEDING SINCE 3 WEEKS AGO. REVIEWED HT AND WEIGHT WITH THE PATIENT'S MOTHER. HT 6'1" AND WT 141 LBS, UPDATED.
--- NOTE | 2017-02-25 19:04 | NUR ---
MS RN CLOSING NOTES PATIENT IN BED, A/O X2. NOT IN DISTRESS. PATIENT HAD BOWEL MOVEMENT TODAY, LARGE AMOUNT, SOFT FORMED. MADE COMFORTABLE IN BED, NO C/O PAIN AT THIS TIME. DIET TOLERATED WELL, NO VOMITING, NO C/O NAUSEA. CALL LIGHT WITHIN REACH. ON CONTACT ISOLATION-ESBL URINE. WILL ENDORSE TO MEDIA SERVICES DIRECTOR RN FOR CONTINUITY OF CARE.
--- NOTE | 2017-02-25 19:30 | NUR ---
RN NOTES; RECEIVED AWAKE ON BED WITH HIS MOTHER AT BED SIDE,HE IS CRYING HE WANTS THE MOTHER TO STAY, SHE IS LEAVING TO GO HOME,PERMA CATH ON RU, PEG TUBE IN SITE DRY AND INTACT,CLAMPED,PATIENT ABLE TO TAKE CRUSHED MEDS ORALLY WITH THIN LIQUID,INCONTINENT BOWEL AND BLADDER ON DIAPER,CALL LIGHT WITHIN REACH,FALL,SAFETY AND ASPIRATION PRECAUTION OBSERVE, ON ISOLATION FOR ESBL -URINE.ON CLOSE VISUAL CHECK. Addendum: 02/25/17 at 2208 by PAUL BARBER RN CHANGE HE TO SHE.PATIENT IS FEMALE.
--- NOTE | 2017-02-25 19:37 | NUR ---
RN NOTES: MOTHER REQUEST TO GIVE BENADRYL PRN FOR ITCHINESS,ASSESSED PATIENT,HE COMPLAINED OF ITCHING, REPOSTION AND PRN MEDICATION GIVEN.
[2017-02-25 20:00] VITALS: BP 169/98
--- NOTE | 2017-02-25 21:00 | NUR ---
RN NOTES: TURNING AND REPOSITIONING DONE, ON DVT PUMP,ABLE TO TAKE ALL DUE MEDICATION ORALLY WITH APPLE SAINGRIS, COOPERATIVE, CRYING ON AND OFF LOOKING FOR HIS MOTHER.TRIED TO BE DIVERTED BY WATCHING TV.
--- NOTE | 2017-02-25 22:00 | NUR ---
RN NOTES: BLOOD SUGAR CHECKED-363, LEVEMIR GIVEN, WILL CONTINUE TO MONITOR FOR SIGN OF HYPER/HYPOGLYCEMIA,CALL LIGHT WITHIN REACH.
--- NOTE | 2017-02-25 23:54 | NUR ---
RN NOTES: ABLE TO NAP AT SHORT INTERVALS AFTER MORNING CARE DONE,CLEAN AND CHANGE,BLOOD SUGAR-376, INSULIN GIVEN PER SCALE, KEEP ON CLOSE WATCH. CALL LIGHT WITHIN EASY REACH.
[2017-02-26] VITALS: BP 155/90
[2017-02-26 04:00] VITALS: BP 158/88
[2017-02-26] MEDS: hydrALAZINE HCL 25 MG TABLET GT SCH ×3 (05:00→20:11)
--- NOTE | 2017-02-26 05:13 | NUR ---
RN NOTES: HYDRALAZINE NOT GIVEN BP-158/88 NV-93.PATIENT SLEEP WELL IN THE NIGHT.
[2017-02-26] MEDS: HEPARIN SODIUM, PORCINE 5000 UNITS/1 ML VIAL SQ SCH ×3 (05:44→21:48)
[2017-02-26] MEDS: BLOOD SUGAR DIAGNOSTIC 1 EACH STRIP IN SCH ×3 (05:50→17:16)
[2017-02-26] MEDS: INSULIN REGULAR, HUMAN 100 UNIT/ML 3 ML VIAL SQ PRN ×3 (05:52→17:39)
--- NOTE | 2017-02-26 05:52 | NUR ---
RN NOTES: BLOOD SUGAR CHECKED-116, NO INSULIN GIVEN PER SCALE,DUE MEDICATION GIVEN,ASLEEP IN THE NIGHT, BED LOW AND LOCKED, ISOLATION PRECAUTION FOR ESBL-URINE OBSERVED.CALL LIGHT WITHIN EASY REACH.
--- NOTE | 2017-02-26 06:34 | NUR ---
RN NOTES: TURNING AND REPOSITIONING DONE,ENDORSED FOR CONTINUITY OF CARE.
--- NOTE | 2017-02-26 07:10 | NUR ---
MS RN NOTES RECEIVED PATIENT IN BED, SLEEPING, AROUSES EASILY. SCD IN PLACE. APPEARS COMFORTABLE IN BED, NO MOANING, NO C/O PAIN AT THIS TIME. NO SOB. WILL CONT TO MONITOR.
[2017-02-26 08:00] VITALS: BP 160/94
[2017-02-26] MEDS: PANTOPRAZOLE 40 MG/PACK PACK GT SCH (08:17)
[2017-02-26] MEDS: DOCUSATE SODIUM LIQ 100 MG/10 ML UDC GT SCH ×2 (08:17→17:15)
[2017-02-26] MEDS: FERROUS SULFATE UDC 300 MG/5 ML UDC GT SCH (08:17)
[2017-02-26] MEDS: NIFEdipine XL (30MG) 30 MG TAB PO SCH (08:17)
[2017-02-26] MEDS: clonazePAM 0.5 MG TABLET GT SCH ×2 (08:18→21:47)
[2017-02-26] MEDS: CLONIDINE HCL 0.1 MG TABLET GT SCH ×2 (08:18→21:47)
[2017-02-26] MEDS: LOSARTAN POTASSIUM 50 MG TABLET GT SCH (08:19)
[2017-02-26] MEDS: VIT B CMPLX 3/FA/VIT C/BIOTIN 1 TAB TABLET PO SCH (08:27)
[2017-02-26] MEDS: MINOXIDIL (2.5MG) 2.5 MG TABLET GT SCH ×2 (08:27→17:15)
[2017-02-26] MEDS: FOLIC ACID 1 MG TABLET GT SCH (08:27)
[2017-02-26] MEDS: CARVEDILOL 12.5 MG TABLET GT SCH ×2 (08:28→20:07)
[2017-02-26] MEDS: INSULIN DETEMIR 100 UNIT/ML CARTRIDGE SQ SCH ×2 (08:35→21:54)
[2017-02-26] MEDS: NITROGLYCERIN 30 GM TUBE TP SCH ×2 (08:37→21:49)
[2017-02-26] MEDS: Z GUARD REMEDY 2 OZ OINT TP SCH (09:27)
[2017-02-26 16:00] VITALS: BP_SYST 102; BP_SYST 126; BP_DIAS 60; BP_DIAS 72
--- NOTE | 2017-02-26 18:28 | NUR ---
MS RN CLOSING NOTES PATIENT IN BED, A/O X2. NOT IN DISTRESS. BLOOD SUGAR MONITORED, NO S/S OF HYPO/HYPERGLYCEMIA. BP CONTROLLED TODAY. NOTIFIED DR. HARLEY WITH XRAY CHEST RESULT WITH NO NEW ORDERS AT THIS TIME. CALL LIGHT WITHIN REACH. REPOSITION IN BED, MADE COMFORTABLE. ON CONTACT ISOLATION-ESBL URINE. WILL ENDORSE TO CERAMIC MOLD DESIGNER RN FOR CONTINUITY OF CARE.
--- NOTE | 2017-02-26 19:30 | NUR ---
RN NOTE; RECEIVED PT IN BED AWAKE AND RESPONSIVE, BREATHING EVENLY. NO SOB . NAD. SKIN WARM AND DRY. GT CLAMPED . NO C/O PAIN OR DISCOMFORT. NO H/A. NEEDS ATTENDED. BED LOW LOCKED. CALL LIGHT WITHIN REACH. WILL CONT TO MONITOR .
[2017-02-26 20:00] VITALS: BP 133/91
[2017-02-26 20:11] VITALS: BP 133/91
[2017-02-26] MEDS ORDERED: VALSARTAN 80 MG TABLET PO SCH (21:00)
--- NOTE | 2017-02-26 22:00 | NUR ---
GT IN PLACE, CLAMPED. NO GTF. Addendum: 02/26/17 at 2357 by CAMILLE MILLAN RN Amended: Links added.
[2017-02-27] MEDS: BLOOD SUGAR DIAGNOSTIC 1 EACH STRIP IN SCH ×4 (00:47→16:47)
[2017-02-27] MEDS: INSULIN REGULAR, HUMAN 100 UNIT/ML 3 ML VIAL SQ PRN ×2 (01:03→12:09)
[2017-02-27] MEDS: hydrALAZINE HCL 25 MG TABLET GT SCH ×3 (04:13→20:18)
[2017-02-27] MEDS: diphenhydrAMINE HCL 50 MG/ML VIAL IV PRN ×2 (04:22→21:55)
[2017-02-27] MEDS: HEPARIN SODIUM, PORCINE 5000 UNITS/1 ML VIAL SQ SCH ×3 (04:33→20:23)
[2017-02-27] MEDS: DEXTROSE 50%-WATER 50 ML DISP.SYRIN IV PRN ×2 (06:45→17:08)
--- NOTE | 2017-02-27 07:10 | NUR ---
MS RN NOTES PATIENT IN BED, AWAKE. A/O X1. BREATHING EVEN AND NON LABORED. CALL LIGHT WITHIN REACH. FOR HD TODAY. WILL CONT TO MONITOR.
--- NOTE | 2017-02-27 07:11 | NUR ---
RN NOTE; PT IN BED AWAKE AND RESPONSIVE. BREATHING EVENLY. NO SOB. NO DISTRESS. SKIN WARM AND DRY. D50W GIVEN FOR BS:36 , PLACED AN ORDER FOR STAT GLUCOSE LEVEL AND CALLED LAB TO DRAW BLOOD. RECHECKED THE BS AFTER ADMINISTRATION OF D50. BS:133. PT REMAINED ALERT. NO ALOC. NO AMS. NO SWEATING. BP REMAINED UNDER CONTROL WITH HELP OF BP MEDS. NO C/O PAIN OR DISCOMFORT. PO MEDS TOLERATED WELL. CLEANED AND DRIED. CALL LIGHT WITHIN REACH . REPORT GIVEN TO ROBBIE FOR CASSI.
[2017-02-27 08:00] VITALS: BP_SYST 152; BP_SYST 157; BP_DIAS 85
[2017-02-27] MEDS: DOCUSATE SODIUM LIQ 100 MG/10 ML UDC GT SCH ×2 (08:22→16:47)
[2017-02-27] MEDS: FERROUS SULFATE UDC 300 MG/5 ML UDC GT SCH (08:22)
[2017-02-27] MEDS: PANTOPRAZOLE 40 MG/PACK PACK GT SCH (08:22)
[2017-02-27] MEDS: VIT B CMPLX 3/FA/VIT C/BIOTIN 1 TAB TABLET PO SCH (08:22)
[2017-02-27] MEDS: clonazePAM 0.5 MG TABLET GT SCH ×2 (08:22→20:19)
[2017-02-27] MEDS: FOLIC ACID 1 MG TABLET GT SCH (08:22)
[2017-02-27] MEDS: NIFEdipine XL (30MG) 30 MG TAB PO SCH (08:23)
[2017-02-27] MEDS: MINOXIDIL (2.5MG) 2.5 MG TABLET GT SCH ×2 (08:23→16:47)
[2017-02-27] MEDS: CARVEDILOL 12.5 MG TABLET GT SCH ×2 (08:25→21:21)
--- NOTE | 2017-02-27 08:35 | NUR ---
WOUND CARE CONSULT: PT PREVIOUSLY SEEN NOW PRESENTS WITH BACK RASH. PT NOTED TO HAVE SOME SCRATCH SOLIS ON HER UPPER BACK AND SHOULDER AREAS. DEFER TO MD FOR RASH. WILL SEE PRN. Addendum: 02/27/17 at 0844 by TATE SMITH WNDNU Amended: Links added.
--- NOTE | 2017-02-27 08:59 | NUR ---
PER CHARGE-JOAQUÍNE SPOKE TO DR. CRENSHAW. PATIENT TRANSFERRED TO [facility] WITH ALL MEDS.
[2017-02-27] MEDS: LOSARTAN POTASSIUM 50 MG TABLET GT SCH (09:39)
[2017-02-27] MEDS: CLONIDINE HCL 0.1 MG TABLET GT SCH ×2 (09:40→21:21)
[2017-02-27] MEDS: NITROGLYCERIN 30 GM TUBE TP SCH (09:41)
[2017-02-27] MEDS: Z GUARD REMEDY 2 OZ OINT TP SCH (09:45)
[2017-02-27] MEDS: INSULIN DETEMIR 100 UNIT/ML CARTRIDGE SQ SCH (09:45)
--- NOTE | 2017-02-27 10:41 | NUR ---
PATIENT IS SEEN BY DR. ENGLE TODAY ORDERED BENADRYL CREAM FOR SKIN RASH, HD TODAY PER MD. WILL CALL DR. CRENSHAW REGARDING NITROGLYCERIN OINT. IF STILL NEEDS TO CONT PER DR. ENGLE.
--- NOTE | 2017-02-27 11:00 | NUR ---
SPOKE TO DR. CRENSHAW ORDERED TO STOP NITROGLYCERIN OINT. NOTED AND ACKNOWLEDGED. REMOVED PREVIOUSLY APPLIED NITROGLYCERIN OINT FROM PATIENT'S UPPER LEFT CHEST WALL.
[2017-02-27] MEDS: diphenhydrAMINE HCL/ZINC ACET CREAM 28.3 GM TUBE TP PRN (12:12)
--- NOTE | 2017-02-27 14:45 | NUR ---
DIALYSIS TREATMENT STARTED. DIALYSIS NURSE AT THE BEDSIDE.
[2017-02-27 16:00] VITALS: BP 132/81
--- NOTE | 2017-02-27 16:30 | NUR ---
DIALYSIS TREATMENT DONE WITH 1L FLUIDS OUTPUT. PATIENT TOLERATED WELL.
--- NOTE | 2017-02-27 17:14 | NUR ---
ACCU CHECK BS 38MG/DL. PATIENT IS AWAKE, NO SOB NOTED. SATING 97% IN RA. RE CHECK BS SHOWING 48MG/DL. PROTOCOL INITIATED, GIVEN D50% 50ML INJ. WILL RE CHECK BLOOD SUGAR AND NOTIFY .
--- NOTE | 2017-02-27 18:01 | NUR ---
RECHECK BS 145 PATIENT CONSUMED 100% OF HER MEAL. AWAITING MD TO CALL BACK FOR ANY NEW ORDERS.
--- NOTE | 2017-02-27 19:00 | NUR ---
MS RN CLOSING NOTES PATIENT IN BED, NOT IN DISTRESS. PATIENT HAD BOWEL MOVEMENT TODAY, LARGE AMOUNT. MADE COMFORTABLE IN BED. CALL LIGHT WITHIN REACH. RECEIVED PHONE CALL FROM DR. HERNANDEZ (TEST BORER HELPER) REGARDING EPISODE OF HYPOGLYCEMIA, ALSO INFORMED MD PATIENT IS CURRENTLY ON AGGRESSIVE ISS. PER MD TO KEEP THE SAME, NO NEW ORDERS AT THIS TIME. ENDORSED TO CHURCH OFFICIAL RN FOR CONTINUITY OF CARE.
--- NOTE | 2017-02-27 19:30 | NUR ---
MS RN INITIAL NOTE RECEIVED PT AWAKE AND ALERT, ORIENTED X2, PT HAS DIFFICULTY MAKING SELF UNDERSTOOD, NO SIGNS OF PAIN OR RESPIRATORY DISTRESS NOTED DURING PHYSICAL ASSESSMENT, PT IS CLEAN/DRY AND COMFORTABLE, SAFETY MEASURES WILL BE MAINTAINED AT ALL TIMES, NEEDS WILL BE ANTICIPATED AND ATTENDED TO PROMPTLY.
[2017-02-27 21:26] VITALS: BP 165/108
--- NOTE | 2017-02-28 00:14 | NUR ---
PT BS LEVEL IS 439 UPON CHECKING TWICE, MD CARRANZA MADE AWAKE, ORDER RECEIVED FOR 12 UNITS REGULAR INSULIN IVP, TOLD MD IVP INSULIN NOT IN THE SCOPE OF NURSES AT THIS LEVEL OF CARE, PT CHANGED ORDER TO COVERING BS LEVER WITH AGGRESSIVE SLIDING SCALE SQ INSULIN, WILL CONTINUE TO MONITOR PT CLOSELY.
[2017-02-28] MEDS: INSULIN REGULAR, HUMAN 100 UNIT/ML 3 ML VIAL SQ PRN ×4 (00:17→23:56)
[2017-02-28] MEDS: BLOOD SUGAR DIAGNOSTIC 1 EACH STRIP IN SCH ×5 (00:24→23:51)
--- NOTE | 2017-02-28 01:07 | NUR ---
PT'S BS IS 411, REMAINS HIGH BUT IS SLOWLY TRENDING DOWN, WILL RE-CHECK IN AN HOUR, DUE TO BS TRENDING DOWN I WILL CONTINUE TO MONITOR AND NOT PROVIDE INSULIN AT THIS TIME, PT IS PRONE TO HYPOGLYCEMIA, WILL CONTINUE TO MONITOR CLOSELY.
--- NOTE | 2017-02-28 01:42 | NUR ---
PT'S BS LEVEL IS 342 AT THIS TIME, BS IS TRENDING DOWN AFTER PROVIDING AGGRESSIVE SLIDING SCARE COVERAGE, DUE TO BS CONSISTENTLY TRENDING DOWN, INSULIN WILL NOT BE PROVIDED AND WILL CONTINUE TO MONITOR CLOSELY.
--- NOTE | 2017-02-28 05:00 | NUR ---
PT BS IS 58, D50% GIVEN, WILL CONTINUE TO MONITOR CLOSELY.
[2017-02-28] MEDS: DEXTROSE 50%-WATER 50 ML DISP.SYRIN IV PRN (05:12)
[2017-02-28] MEDS: hydrALAZINE HCL 25 MG TABLET GT SCH ×3 (05:15→20:36)
[2017-02-28] MEDS: HEPARIN SODIUM, PORCINE 5000 UNITS/1 ML VIAL SQ SCH ×3 (05:23→20:39)
--- NOTE | 2017-02-28 05:30 | NUR ---
BS AFTER ADMINISTRATION OF D50% INJ IS 102, PT IS STABLE AND COMFORTABLE, WILL CONTINUE TO MONITOR CLOSELY.
--- NOTE | 2017-02-28 06:39 | NUR ---
MS RN CLOSING NOTE PT REMAINED STABLE DURING PAINTINGS CONSERVATOR, BS WAS CONTROLLED AND STABILIZED PER PROTOCOLS, PT IS COMFORTABLE RESTING IN BED, NO COMPLAINT OF PAIN OR RESPIRATORY DISTRESS NOTED, WILL ENDORSE TO AM NURSE FOR CASSI.
[2017-02-28] MEDS: PANTOPRAZOLE 40 MG/PACK PACK GT SCH (07:37)
[2017-02-28 08:00] VITALS: BP 148/95
--- NOTE | 2017-02-28 08:11 | NUR ---
AM RN NOTE Received patient sleeping comfortably in her bed, no SOB noted resp even and non-labored. IV site intact and patent. Bed in low locked position. Will continue to monitor.
[2017-02-28] MEDS: Z GUARD REMEDY 2 OZ OINT TP SCH (09:00)
[2017-02-28] MEDS: DOCUSATE SODIUM LIQ 100 MG/10 ML UDC GT SCH ×2 (09:19→16:05)
[2017-02-28] MEDS: clonazePAM 0.5 MG TABLET GT SCH ×2 (09:19→20:36)
[2017-02-28] MEDS: FOLIC ACID 1 MG TABLET GT SCH (09:20)
[2017-02-28] MEDS: LOSARTAN POTASSIUM 50 MG TABLET GT SCH (09:20)
[2017-02-28] MEDS: FERROUS SULFATE UDC 300 MG/5 ML UDC GT SCH (09:20)
[2017-02-28] MEDS: CLONIDINE HCL 0.1 MG TABLET GT SCH ×2 (09:21→20:36)
[2017-02-28] MEDS: NIFEdipine XL (30MG) 30 MG TAB PO SCH (09:21)
[2017-02-28] MEDS: VIT B CMPLX 3/FA/VIT C/BIOTIN 1 TAB TABLET PO SCH (09:21)
[2017-02-28] MEDS: CARVEDILOL 12.5 MG TABLET GT SCH ×2 (09:25→20:36)
[2017-02-28] MEDS: MINOXIDIL (2.5MG) 2.5 MG TABLET GT SCH ×2 (10:03→16:06)
[2017-02-28] MEDS: Z GUARD REMEDY 2 OZ OINT TP PRN (10:04)
--- NOTE | 2017-02-28 12:20 | NUR ---
AM RN NOTE Patient awake, fingerstick 509mg/dl before lunch. Routine 20units of insulin given per sliding scale. Order for Random glucose placed and called [facility] nephrology, spoke with Kitty gaming for Dr. Rajput (On-call).
--- NOTE | 2017-02-28 12:40 | NUR ---
AM RN NOTE Fingerstick repeated 437mg/dl. Dr. Nayla Fabian doing her rounds made aware about blood sugar results with new orders.
--- NOTE | 2017-02-28 13:00 | NUR ---
AM RN NOTE Random glucose 542mg/dl called Dr. Nayla Fabian made aware with NNO.
[2017-02-28] MEDS: INSULIN DETEMIR 100 UNIT/ML CARTRIDGE SQ SCH (13:42)
[2017-02-28 16:00] VITALS: BP 119/76
[2017-02-28] MEDS: diphenhydrAMINE HCL/ZINC ACET CREAM 28.3 GM TUBE TP PRN (16:04)
[2017-02-28] MEDS: HYDROCODONE/APAP 5/325MG 1 EACH TABLET GT PRN (16:06)
[2017-02-28] MEDS: diphenhydrAMINE HCL 50 MG/ML VIAL IV PRN ×2 (18:09→23:51)
--- NOTE | 2017-02-28 18:35 | NUR ---
AM RN NOTE Patient lying in her bed no acute distress noted, family at bedside. No s/sx of hyperglycemia/ hypoglycemia noted. Will endorse care to next shift.
--- NOTE | 2017-02-28 19:04 | NUR ---
AM RN NOTE New orders given by Dr. Nayla Fabian to stop GT feeding and ok to give all medications orally. Pt's mother gave pt a hair cut. Carola Marcano) was aware.
--- NOTE | 2017-02-28 19:30 | NUR ---
MS RN NOTE: PATIENT RESTING IN BED, NO ACUTE DISTRESS NOTED, FAMILY AT BEDSIDE. BREATHING EVEN AND UNLABORED, NO SOB NOTED. IV TO LEFT UPPER ARM IN PLACE. HD SITE TO RIGHT CHEST WALL IN PLACE. NO S/S OF HYPER/HYPOGLYCEMIA NOTED. ISOLATION PRECAUTIONS OBSERVED. BED LOCKED AND IN LOWEST POSITION, CALL LIGHT IN REACH. WILL CONTINUE TO MONITOR.
[2017-02-28 20:03] VITALS: BP 146/88
--- NOTE | 2017-02-28 20:45 | NUR ---
MS RN NOTE: PATIENT REFUSES TO TAKE MEDICATIONS ORALLY, MEDICATIONS GIVEN VIA G-TUBE WITHOUT COMPLICATIONS. WILL CONTINUE TO MONITOR.
--- NOTE | 2017-03-01 | NUR ---
MS RN NOTE: PATIENT COMPLAINS OF ITCHINESS, BENADRYL 25MG IV GIVEN PER MD ORDER. PATIENT BLOOD SUGAR LEVEL 325 MG/DL, PATIENT TO RECEIVE 16 UNITS OF INSULIN PER SLIDING SCALE. NO S/S OF HYPERGLYCEMIA NOTED, WILL CONTINUE TO MONITOR.
[2017-03-01] MEDS: hydrALAZINE HCL 25 MG TABLET GT SCH ×2 (05:40→13:00)
[2017-03-01] MEDS: HEPARIN SODIUM, PORCINE 5000 UNITS/1 ML VIAL SQ SCH ×2 (05:47→12:25)
[2017-03-01] MEDS: BLOOD SUGAR DIAGNOSTIC 1 EACH STRIP IN SCH ×2 (05:56→12:13)
[2017-03-01] MEDS: INSULIN REGULAR, HUMAN 100 UNIT/ML 3 ML VIAL SQ PRN ×2 (05:58→12:23)
--- NOTE | 2017-03-01 06:05 | NUR ---
MS RN NOTE: PATIENT RESTING IN BED, NO ACUTE DISTRESS NOTED. BREATHING EVEN AND UNLABORED, NO SOB NOTED. IV TO LFA IN PLACE. HD SITE TO RIGHT CHEST WALL IN PLACE. BLOOD SUGAR LEVEL 144 MG/DL, PATIENT TO RECEIVE 2 UNITS OF INSULIN, NO S/S OF HYPER/HYPOGLYCEMIA NOTED. ISOLATION PRECAUTIONS OBSERVED. BED LOCKED AND IN LOWEST POSITION, CALL LIGHT IN REACH. WILL ENDORSE TO DAY NURSE TO CONTINUE WITH PLAN OF CARE.
[2017-03-01] MEDS: diphenhydrAMINE HCL 50 MG/ML VIAL IV PRN ×2 (06:14→12:13)
[2017-03-01 06:43] LABS: BASOPHILS % (AUTO) 0.2 % (0.0-2.0); EOSINOPHILS # (AUTO) 0.5 /CMM (0.0-0.7); EOSINOPHILS % (AUTO) 6.6 % (0.0-6.0); HEMATOCRIT 40 % (33-45); HEMOGLOBIN 12.9 g/dL (11.5-14.8); LYMPHOCYTES # (AUTO) 2.8 /CMM (0.8-4.8); LYMPHOCYTES % (AUTO) 34.6 % (20.0-44.0); MEAN CORPUSCULAR HEMOGLOBIN 32 PG (26.0-33.0); MEAN CORPUSCULAR HGB CONC 32 g/dl (31.0-36.0); MEAN CORPUSCULAR VOLUME 99 fL (82-100); MONOCYTES # (AUTO) 0.7 /CMM (0.1-1.30); MONOCYTES % (AUTO) 9.4 % (2.0-12.0); NEUTROPHILS # (AUTO) 3.9 /CMM (1.8-8.9); NEUTROPHILS % (AUTO) 49.2 % (43.0-81.0); PLATELET COUNT (AUTO) 374 /CMM (150-450); RDW COEFFICIENT OF VARIATION 14.9 (11.5-15.0); RED BLOOD CELL COUNT(AUTO) 4.02 MIL/uL (4.0-5.2)
[2017-03-01 07:04] LABS: CALCIUM, SERUM 9.2 mg/dL (8.5-10.1); CREATININE 3.2 mg/dL (0.6-1.3); MAGNESIUM 2.2 mg/dL (1.8-2.4); PHOSPHORUS 4.6 mg/dL (2.5-4.9); POTASSIUM 4.8 mmol/L (3.5-5.1)
--- NOTE | 2017-03-01 07:29 | NUR ---
MS RN OPENING RECEIEVED PATIENT AWAKE TO NAME. NO S/S PAIN, SOB, DIFFICULTY BREATHING AND NO ACTIVE ITCHING AT THIS TIME. PATIENT ASSISTED TO POSITION OF COMFORT, CALL LIGHT IN REACH, BED LOWERED AND LOCKED, SKIN CLEANSED, BED ALARM ON. WILL ROUND Q2H OR LESS PER NEEDS
[2017-03-01 08:00] VITALS: BP 165/96
[2017-03-01 08:09] VITALS: BP 165/96
[2017-03-01] MEDS: PANTOPRAZOLE 40 MG/PACK PACK GT SCH (08:11)
[2017-03-01] MEDS: VIT B CMPLX 3/FA/VIT C/BIOTIN 1 TAB TABLET PO SCH (08:40)
[2017-03-01] MEDS: DOCUSATE SODIUM LIQ 100 MG/10 ML UDC GT SCH (08:40)
[2017-03-01] MEDS: FERROUS SULFATE UDC 300 MG/5 ML UDC GT SCH (08:40)
[2017-03-01] MEDS: FOLIC ACID 1 MG TABLET GT SCH (08:40)
[2017-03-01] MEDS: clonazePAM 0.5 MG TABLET GT SCH (08:41)
[2017-03-01] MEDS: LOSARTAN POTASSIUM 50 MG TABLET GT SCH (08:41)
[2017-03-01] MEDS: CARVEDILOL 12.5 MG TABLET GT SCH (08:41)
[2017-03-01] MEDS: MINOXIDIL (2.5MG) 2.5 MG TABLET GT SCH (08:41)
[2017-03-01] MEDS: CLONIDINE HCL 0.1 MG TABLET GT SCH (08:41)
[2017-03-01] MEDS: Z GUARD REMEDY 2 OZ OINT TP SCH (08:43)
[2017-03-01] MEDS: INSULIN DETEMIR 100 UNIT/ML CARTRIDGE SQ SCH (08:43)
[2017-03-01] MEDS: NIFEdipine XL (30MG) 30 MG TAB PO SCH (08:46)
--- NOTE | 2017-03-01 08:49 | NUR ---
MS RN NOTES DR ENGLE AT BEDSIDE. AWARE PROCARDIA XL NOT BEING GIVEN PATIENT CANNOT SWALLOW. MD WILL F/U
[2017-03-01] MEDS ORDERED: ERGOCALCIFEROL (VITAMIN D 2) 50,000 UNIT CAPSULE GT SCH (09:00)
--- NOTE | 2017-03-01 09:16 | NUR ---
MS RN NOTES CALLED [facility] AND THEY HAVE A BED FOR PATIENT. GIVEN FAX TO SEND PAPERWORK. FAXED. WILL F/U ON STATUS
--- NOTE | 2017-03-01 09:50 | NUR ---
MS RN NOTES MESSAGE LEFT TO PATIENT MOTHER DPMEMO NAVA NO NOTIFY OF DC
[2017-03-01] MEDS: NIFEdipine (10MG) 10 MG CAPSULE PO SCH ×2 (11:04→12:25)
[2017-03-01] MEDS: Z GUARD REMEDY 2 OZ OINT TP PRN (11:05)
--- NOTE | 2017-03-01 12:00 | NUR ---
MS RN NOTES CALLED [facility] TO GIVE REPORT. ON HOLD MORE THAN 10 MINUTES. WILL TRY AGAIN
[2017-03-01 12:12] VITALS: BP 110/78
[2017-03-01] MEDS: HYDROCODONE/APAP 5/325MG 1 EACH TABLET GT PRN (12:13)
[2017-03-01 13:00] VITALS: BP 110/78
--- NOTE | 2017-03-01 13:18 | NUR ---
MS FUR JOINER CALLED [facility] AND GAVE REPORT TO VASILIY FLOR. PATIENT BP AND BLOOD SUGARS STABLE AT THIS TIME. PATIENT SKIN CLEANSED AND IV REMOVED WITH PRESSURE AND DRESSING APPLIED NO BLEEDING NOTED. AGAIN CALLED MOTHER AND NOTIFIED OF DC ALL QUESTIONS ANSWERED. CARE ENDORSED TO EMT.
== END 2017-03-01 13:21 | DRG 190 ==
LOC: ER 18:36 → TELE-TD 22:13 → TELE1 02-24 20:15 → MEDSG1 02-25 10:19 → MEDSG2 02-25 16:04
PROVIDERS: ADMIT Internal Medicine Nephrology; ATTEND Internal Medicine Nephrology
PROC: 5A1D60Z (ICD-10-PCS; principal; 2017-02-25)
DX: I21.4 Non-ST elevation (NSTEMI) myocardial infarction (principal); E11.22 Type 2 diabetes mellitus with diabetic chronic kidney disease; I12.0 Hypertensive chronic kidney disease with stage 5 chronic kidney disease or end stage renal disease; N18.6 End stage renal disease; Z99.2 Dependence on renal dialysis; E87.6 Hypokalemia; I16.0 Hypertensive urgency; R13.10 Dysphagia, unspecified; Z93.1 Gastrostomy status; E11.65 Type 2 diabetes mellitus with hyperglycemia
CPT/HCPCS: 36415; 71010-TC; 80048-TC; 80061-TC; 80076-TC; 82306; 82728-TC; 82945-TC; 82947-TC; 82962-TC; 83540-TC; 83735-TC; 84100-TC; 84439-TC; 84443-TC; 84484-TC; 85025-TC; 87081-TC; 90935-TC; 93307-TC; A4606; J0360; J1200; J1644; J1815; J2270; Z7610